=== PATIENT | female | born 1965 | race Caucasian/White ===

== ENCOUNTER 2019-09-09 09:00 | Outpatient (RCR) | payer OTHER, SELFPAY ==
[2019-08-26 08:19] VITALS: BP 181/103; PULSE 102; RESP 18; TEMP 37.2; BMI 32.7
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
--- NOTE | 2019-09-02 08:11 | ART_ITS ---
Reason For Study: RLE ulcer Left Segmental Pressures Left brachial= 163mmHg. Left dorsalis pedis artery = 239mmHg. Left digit = 169 mmHg. TELECOMMUNICATIONS ADMINISTRATOR is noncompressible. The left dorsalis pedis waveforms are triphasic. The left posterior tibial artery waveforms are triphasic. Right Segmental Pressures Right brachial= 166mmHg. Right posterior tibial artery = 199mmHg. Right dorsalis pedis artery = 186mmHg. Right digit = 177 mmHg. The right dorsalis pedis waveforms are triphasic. The right posterior tibial artery waveforms are triphasic. Indices The right ankle brachial index by the dorsalis pedis is 1.12. The right ankle brachial index by the posterior tibial artery is 1.2. The right digital-brachial index is 1.07. The left ankle brachial index by the dorsalis pedis is 1.44. The left digital-brachial index is 1.02. TELECOMMUNICATIONS ADMINISTRATOR is noncompressible. Interpretation Summary Triphasic Doppler waveforms are noted at ankle level bilaterally. Pulse-volume recordings appear satisfactory at all levels bilaterally. The resting right ankle-brachial index is normal. The resting left ankle-brachial index is supra-normal. Digital-brachial indices are normal bilaterally. Arterial flow appears normal at ankle and digital levels bilaterally. There is evidence of arterial calcification at ankle level on the left. Ordering Physician: Dayton Fontenot Performed By: WILMER MEREDITH T
[2019-09-02 10:00] VITALS: BP 181/99; PULSE 105; RESP 16; TEMP 36.9; BMI 32.7
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
[2019-09-02 18:57] LABS: M R Staph aureus DNA By PCR Negative (Negative); Probe Check PASS; Specimen Processing Control PASS; Staph aureus DNA By PCR NEGATIVE (Negative)
[2019-09-09 09:11] VITALS: BP 168/99; PULSE 99; RESP 18; TEMP 36.9; BMI 32.7
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
[2019-09-23 08:27] VITALS: BP 171/95; PULSE 104; RESP 20; TEMP 36.4; BMI 32.7
== END 2019-09-11 23:59 ==
LOC: WC 09:00
PROVIDERS: Referring Provider Surgery; Visit Provider Surgery
DX: S81.831A Puncture wound without foreign body, right lower leg, initial encounter (principal); V19.9XXA Pedal cyclist (driver) (passenger) injured in unspecified traffic accident, initial encounter; E78.5 Hyperlipidemia, unspecified; M79.89 Other specified soft tissue disorders; E11.51 Type 2 diabetes mellitus with diabetic peripheral angiopathy without gangrene; I70.202 Unspecified atherosclerosis of native arteries of extremities, left leg; I10 Essential (primary) hypertension; E66.9 Obesity, unspecified; Z68.32 Body mass index [BMI] 32.0-32.9, adult; Z79.899 Other long term (current) drug therapy; Z79.84 Long term (current) use of oral hypoglycemic drugs
CPT/HCPCS: 11042; 87070; 87075; 87077; 87186; 87205; 87640; 93923; 99203; 99212; G0463

== ENCOUNTER 2019-10-07 09:30 | Outpatient (RCR) | payer OTHER, SELFPAY ==
[2019-09-12 01:27] VITALS: BP 168/99; PULSE 99; RESP 18; TEMP 36.9
[2019-09-16 09:52] VITALS: BP 175/93; PULSE 111; RESP 20; TEMP 36.7; BMI 32.7
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
[2019-09-30 08:12] VITALS: BP 190/100; PULSE 101; RESP 18; TEMP 37; BMI 32.7
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
[2019-10-07 09:44] VITALS: BP 163/101; PULSE 117; RESP 18; TEMP 36.1; BMI 32.7
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
== END 2019-10-11 23:59 ==
LOC: WC 09:30
PROVIDERS: Referring Provider Surgery; Visit Provider Surgery
DX: S81.831A Puncture wound without foreign body, right lower leg, initial encounter (principal); V19.9XXA Pedal cyclist (driver) (passenger) injured in unspecified traffic accident, initial encounter; I10 Essential (primary) hypertension; E66.9 Obesity, unspecified; E11.9 Type 2 diabetes mellitus without complications; E78.5 Hyperlipidemia, unspecified; M79.89 Other specified soft tissue disorders; Y93.55 Activity, bike riding; Z79.899 Other long term (current) drug therapy; Z79.84 Long term (current) use of oral hypoglycemic drugs
CPT/HCPCS: 11042; 87070; 87075; 87077; 87186; 87205

== ENCOUNTER 2019-11-11 08:00 | Outpatient (RCR) | payer OTHER, SELFPAY ==
[2019-10-12 01:03] VITALS: BP 163/101; PULSE 117; RESP 18; TEMP 36.1
[2019-10-14 08:11] VITALS: BP 172/98; PULSE 103; RESP 18; TEMP 36.4; BMI 32.7
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
[2019-10-21 08:20] VITALS: BP 184/109; PULSE 97; RESP 18; TEMP 36.3; BMI 32.7
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
[2019-10-27 13:10] VITALS: BP 168/98; PULSE 105; RESP 18; TEMP 36.3; BMI 32.7
--- NOTE | 2019-10-27 13:16 | WC ---
pt steristrips/ veil and graft left in place . wound not measured today
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
[2019-11-03 13:14] VITALS: BP 154/79; PULSE 101; RESP 16; TEMP 36.8; BMI 32.7
--- NOTE | 2019-11-03 13:23 | WC ---
primatrix left intact per dr garrett instruction
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
[2019-11-11 08:07] VITALS: BP 157/87; PULSE 100; RESP 18; TEMP 36.5; BMI 32.7
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
== END 2019-11-11 23:59 ==
LOC: WC 08:00
PROVIDERS: Referring Provider Surgery; Visit Provider Surgery
DX: S81.831A Puncture wound without foreign body, right lower leg, initial encounter (principal); V19.9XXA Pedal cyclist (driver) (passenger) injured in unspecified traffic accident, initial encounter; M79.89 Other specified soft tissue disorders; E78.5 Hyperlipidemia, unspecified; I10 Essential (primary) hypertension; E11.9 Type 2 diabetes mellitus without complications; E66.9 Obesity, unspecified; Z79.84 Long term (current) use of oral hypoglycemic drugs; Z79.899 Other long term (current) drug therapy
CPT/HCPCS: 11042; 99212; 99213; G0463

== ENCOUNTER 2019-12-02 08:30 | Outpatient (RCR) | payer OTHER, SELFPAY ==
[2019-11-12 00:45] VITALS: BP 157/87; PULSE 100; RESP 18; TEMP 36.5
[2019-11-18 09:03] VITALS: BP 178/97; PULSE 100; RESP 18; TEMP 36.6; BMI 32.7
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
[2019-11-25 08:09] VITALS: BP 195/94; PULSE 95; RESP 16; TEMP 36.7; BMI 32.7
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
[2019-12-02 08:53] VITALS: BP 175/97; PULSE 105; RESP 18; TEMP 37.1; BMI 32.7
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
== END 2019-12-12 23:59 ==
LOC: WC 08:30
PROVIDERS: Referring Provider Surgery; Visit Provider Surgery
DX: S81.831A Puncture wound without foreign body, right lower leg, initial encounter (principal); V19.9XXA Pedal cyclist (driver) (passenger) injured in unspecified traffic accident, initial encounter; M79.89 Other specified soft tissue disorders; E78.5 Hyperlipidemia, unspecified; I10 Essential (primary) hypertension; E11.9 Type 2 diabetes mellitus without complications; E66.9 Obesity, unspecified; Z79.84 Long term (current) use of oral hypoglycemic drugs; Z79.899 Other long term (current) drug therapy; Z68.32 Body mass index [BMI] 32.0-32.9, adult; Z71.3 Dietary counseling and surveillance
CPT/HCPCS: 11042; 99213; G0463

== ENCOUNTER → 2021-09-08 10:07 | Outpatient (CLI) | payer SELFPAY, OTHER ==
--- NOTE | 2021-09-08 10:07 | MRI_ITS ---
History: pain, hcx prior burst fracture 2 yrs ago, surg 1 year go Technique: T1 and T2 MR imaging of the lumbar spine performed with and without contrast enhancement in axial and sagittal planes. 15ml Dotarem Findings: Chronic burst fracture deformity of the L2 vertebral body again noted with anterior and posterior displacement unchanged from prior radiograph. No bone marrow edema to suggest acute injury. Prominent disc space narrowing noted at L3-4 and L4-5. Modic type I endplate changes noted at the L4-5 level. Conus medullaris and cauda equina are normal. No paraspinal mass. Fat deposition within the son last and paraspinal muscles suggestive of disuse. No abnormal contrast enhancement L1-2: The posterior aspect of the L2 vertebral body projects posteriorly approximately 7 mm resulting in mild spinal stenosis. AP dimension of the thecal sac measures 10 mm. Narrowing of the left neural foramen secondary to the fracture deformity. L2-3: No disc protrusion. Normal caliber spinal canal and neural foramina. L3-4: Moderate broad-based disc protrusion results in mild compression of the thecal sac. Additional facet arthropathy moderate right and mild left neural foraminal narrowing. L4-5: No disc herniation or spinal stenosis. Prominent facet arthropathy results in significant narrowing of the neural foramina bilaterally. L5-S1: No central disc protrusion. Normal caliber spinal canal. Moderate narrowing of the left neural foramen related to lateral disc protrusion and facet arthropathy. IMPRESSION: Chronic burst fracture of the L2 vertebral body resulting in mild spinal stenosis.. L3-4 mild spinal stenosis related to disc protrusion. Multilevel neural foraminal narrowing as described. at 1212 Reported and signed by: Eron Briscoe MD Electronically Signed: Eron Briscoe MD at 12:11 EDT Tel , Service support , MRI/Spine Lumbar W/WO Contrast
[2021-09-08 11:25] LABS: CREATININE FINGERSTICK 0.7 mg/dL (0.55-1.02); EGFR FINGERSTICK > 60.0000 mL/min (>60)
== END ==
PROVIDERS: PCP Nurse Practitioner Family; Referring Provider Orthopaedic Surgery; Visit Provider Orthopaedic Surgery
DX: S32.001A Stable burst fracture of unspecified lumbar vertebra, initial encounter for closed fracture (principal); M48.061 Spinal stenosis, lumbar region without neurogenic claudication
CPT/HCPCS: 72158; A9575

== ENCOUNTER 2025-08-03 17:57 | Emergency (ER) | payer OTHER, SELFPAY ==
[2025-08-03 17:58] VITALS: BP 117/57; PULSE 96; RESP 16; TEMP 36.8; O2SAT 95
--- NOTE | 2025-08-03 18:56 | EDS_ITS ---
HPI History of Present Illness Chief Complaint: General Illness [facility] Medical History (Updated 08/03/25 @ 22:[address] Alan Murcia MD) Leg wound, right Home Medications ?Medication ?Instructions ?Recorded ?Last Taken ?Type amlodipine 10 mg tablet 10 mg PO DAILY 08/26/19 Unkn own History glipizide 5 mg tablet 10 mg PO DAILY 08/26/19 Unkn own History lisinopril 40 mg tablet 40 mg PO DAILY 08/22/21 Unkn own History aspirin 81 mg tablet,delayed 81 mg PO DAILY 08/03/25 U nknown History release (Adult Aspirin Regimen) atorvastatin 40 mg tablet 40 mg PO QHS 08/03/25 Unknow n History furosemide 20 mg tablet 20 mg PO DAILY PRN swelling 08/03/25 Unknown History hydrochlorothiazide 25 mg tablet 25 mg PO DAILY Unknown History insulin glargine 100 unit/mL (3 30 unit subcut QHS Unknown History mL) subcutaneous pen (Lantus Solostar U-100 Insulin) potassium chloride 20 mEq 20 meq PO DAILY 08/03/25 Unk nown History tablet,extended release(part/cryst) spironolactone 25 mg tablet 25 mg PO DAILY 08/03/25 Un known History Allergy/AdvReac Type Severity Reaction Status Date / Time No Known Allergies Allergy Verified 08/03/25 17:58 Family History (Updated 08/22/21 @ 09:19 by Gretchen Ontiveros) Mother Colon cancer Surgical History History of delivery Social History (Updated 08/22/21 @ 09:20 by Gretchen Ontiveros) household members: spouse housing: house Smoking Status: Never smoker alcohol intake: never what type of physical activity do you participate in: none do you feel safe at home: Yes EXAM Physical Exam Const Vital Signs: 08/03/25 17:58 08/03/25 20:17 08/03/25 22:00 Temperature 98.3 F Temperature Source Oral Pulse Rate 96 89 80 Respiratory Rate 16 17 16 Blood Pressure 117/57 L 133/67 H 125/68 H Blood Pressure Mean 77 89 87 Pulse Ox 95 95 98 Oxygen Delivery Method Room Air Room Air Room Air MDM MDM MDM Narrative Medical decision making narrative: HISTORY OF PRESENT ILLNESS: Chief complaint: Multiple complaints 60-year-old female history of degenerative disc disease, herniated disc, history of back surgery, hypertension, obesity, type 2 diabetes, hyperlipidemia, diverticulitis presents with multiple complaints. She states she presents emergency department today primarily secondary to abdominal pain and back pain. States the symptoms have been ongoing for the last 5 days. Notes press tender long goods NSAID use 2/2 back pain. Notes ibuprofen TID for the better part of the last year. NOtes recently she started taking aleve. She also notes pain in the right lower quadrant of her abdomen. Notes diarrhea. Last bowel was today. Notes difficulty urinating today. No she has not urinated since noon. She denies any falls or trauma. Patient denies any saddle anesthesia, bowel or bladder incontinence, lower extremity weakness, fever or IV drug use, no recent spinal manipulation or surgery, no recent urinary catheterization. Denies any vomiting. No fever currently or chills but noted fever last week. REVIEW OF SYSTEMS: Pertinent positives: Abdominal pain, back pain, difficulty urinating Pertinent negatives: [] PHYSICAL EXAM: Nursing triage notes reviewed, Vital signs reviewed Constitutional: please see mdm HENT: MMM Eyes: Pupils equal round and reactive to light, Extraocular muscles intact Neck: No stridor, no JVD, full neck ROM Lungs: Clear to auscultation, No wheezing or rales. No increased work of breathing, no conversational dyspnea, no accessory muscle use, no nasal flaring. No respiratory distress noted Heart: Regular rate and rhythm, No murmurs, No rubs and No gallops, 2+ distal pulses (radial, femoral, posterior tibial) in all extremities Abdomen: Soft, right lower quadrant TTP, slight distention but no rigidity or guarding, no obvious peritoneal signs, no palpable pulsatile abdominal masses, no auscultated abdominal bruit : No CVAT Extremities: No edema Neuro: No new focal neurological deficits, cranial nerves II through XII intact, 5/5 strength in all present extremities. Intact sensation to light touch in all present extremities, 2+ reflexes bilateral patella tendons. Skin: No rash or lesions noted MEDICAL DECISION MAKING: Chief Complaint: please see HPI External records reviewed: Reviewed prior imaging studies: Reviewed MRI of the lumbar spine in 2020 which showed burst fracture of L2 vertebral body, L3-4 mild spinal stenosis related to disc protrusion Factors affecting care: As per HPI Social determinants of health: Denies illicit drug use History obtained from others: Family Consults: General Surgery (Dr. Murcia), Radiology, General surgery and Emergency medicine at [facility] (Dr. Benavidez and Dr. Oneill) MDM Narrative: The patient was initially hemodynamically stable, afebrile and nontoxic- appearing. Exam without midline step-offs or deformities to the lumbar spine. No CVA tenderness. No new weakness to lower extremities. I considered the following differential diagnosis: AAA, small bowel obstruction, abdominal perforation, appendicitis, pancreatitis, hepatobiliary pathology (acute cholecystitis), mesenteric ischemia, pathology (ie nephrolithiasis, pyelonephritis). Epidural abscess, herniated disc, musculoskeletal back pain. I obtained a broad lab and imaging work to further determine if the patient was suffering from a life-threatening etiology. Initially treat the patient's pain with IV fluids, following his IV Zofran, 4 mg IV morphine, 15 mg IV Toradol ALL IMAGES (IF OBTAINED) HAVE BEEN PERSONALLY REVIEWED AND INTERPRETED BY MYSELF. CBC with leukocytosis suggestive of systemic inflammation, mild anemia, no thrombocytopenia BMP without significant electrolyte or maladies, noted mild metabolic acidosis with a bicarb of 20.3, no endorgan hypoperfusion, no significant acute kidney injury Lipase is wnl indicating no pancreatic inflammation. LFTs show no evidence of hepatobiliary pathology. Urinalysis shows no evidence of urinary inflammation suggestive of UTI CT scan lumbar spine shows no evidence of obvious bony abnormality CT scan of the abdomen pelvis read by radiology is concerning for abdominal perforation. Discussed with general surgery per radiology recommendations Aki Rudd. After discussing with the [facility] general surgeon an NG tube was ordered. He recommended ED to ED transfer. Discussed with the ED physician Dr. Burns who accepted the patient in transfer as well. The patient and/or family, caregivers express understanding. The patient and/or family, caregivers agrees with the plan. Shared decision making: I will have a discussion with the patient and or visitors regarding risk/benefits of further testing or admission. They will be made aware of of the risk/benefits inherent in this decision they will be given the opportunity to voice understanding. Total critical care time today provided was at least 60 minutes. This excludes separately billable procedures. Critical care time (if documented) is secondary to the patient having high probability of clinically significant/life threatening deterioration in the patient's condition which required my urgent intervention. Impression: 1. Acute abdominal pain 2. Acute on chronic back pain 3. Leukocytosis 4. Bowel perforation Dispo: Transfer to higher level of care, [facility] This note was generated with [employer] dictation software. It may contain incorrect words, spelling, and punctuation that were not noted in review of the chart prior to signing. Lab Data Labs: Laboratory Results - last 24 hr 08/03/25 08/03/25 08/03/25 18:55 20:15 20:30 WBC 15.0 H RBC 3.57 L Hgb 9.7 L Hct 30.9 L MCV 86.6 MCH 27.2 MCHC 31.4 L RDW Std Deviation 54.8 H RDW Coeff of Ector 17.2 H Plt Count 460 H MPV 9.5 Immature Gran % (Auto) 1.500 H Neut % (Auto) 89.9 H Lymph % (Auto) 4.0 L [place] % (Auto) 3.4 Eos % (Auto) 0.3 Baso % (Auto) 0.9 Absolute Neuts (auto) 13.5 H Absolute Lymphs (auto) 0.60 L Nucleated RBC % 0.1 Differential Comment SCANNED Platelet Estimate SLT INC Sodium 140 Potassium 3.7 Chloride 105 Carbon Dioxide 20.3 L Anion Gap 15 BUN 47 H Creatinine 1.43 H Estim Creat Clear Calc 39.60 L Est GFR (MDRD) Non-Af 41 L BUN/Creatinine Ratio 32.9 H Glucose 127 H Calcium 8.2 Total Bilirubin 0.23 AST 25 ALT 31 Alkaline Phosphatase 182 H Total Protein 5.9 Albumin 2.5 L Globulin 3.4 Albumin/Globulin Ratio 0.7 L Lipase 20 Urine Color Yellow Urine Clarity Cloudy Urine pH 5.0 Ur Specific [place]elope 1.010 Urine Protein 30 H Urine Glucose (UA) Normal Urine Ketones Negative Urine Occult Blood 10 H Urine Nitrite Negative Urine Bilirubin Negative Urine Urobilinogen Normal Ur Leukocyte Esterase 25 H Urine RBC 0-5 SEEN Urine WBC 5-10 SEEN Ur Squamous Epith Cells 10-25 SEEN Ur Transition Epith Cell 10-25 SEEN Urine Bacteria 0 SEEN Hyaline Casts 10-25 SEEN Fine Granular Casts 0-5 SEEN Coarse Granular Casts 0-5 SEEN Urine Mucus 0 SEEN POC Glucose 121 H Radiography Diagnostic Testing: Clinical Impression(s) from Imaging Studies Abdomen/Pelvis CT 08/03/25 19:09 IMPRESSION: Abnormal air which appears to be confined to the retroperitoneum on the left and could be arising from the small bowel or duodenum. There are loculated central feculent appearing collection suggesting abscesses but without enhancing boudreaux at this time. Recommend surgical consultation Reading Location: [facility] Lumbar Spine CT 08/03/25 19:09 IMPRESSION: Extensive prior fusion. No fracture. No paravertebral abscess. See separate CT report. Reading Location: [facility] Discharge Plan Triage Chief Complaint: General Illness Other Complaint: Back ED Provider: Jayden Martinez Dx/Rx/DC Orders Prescriptions: No Action lisinopril 40 mg tablet 40 mg PO DAILY Patient Comments: TAKE ONE TABLET BY MOUTH DAILY amlodipine 10 MG tablet 10 mg PO DAILY glipizide 5 MG tablet 10 mg PO DAILY atorvastatin 40 mg tablet 40 mg PO QHS hydrochlorothiazide 25 mg tablet 25 mg PO DAILY furosemide 20 mg tablet 20 mg PO DAILY PRN (Reason: swelling) insulin glargine [Lantus Solostar U-100 Insulin] 100 unit/mL (3 mL) insulin pen 30 unit subcut QHS spironolactone 25 mg tablet 25 mg PO DAILY potassium chloride 20 mEq tablet,ER particles/crystals 20 meq PO DAILY aspirin [Adult Aspirin Regimen] 81 mg tablet,delayed release (DR/EC) 81 mg PO DAILY Primary Care Provider: Danay Fontenot Referrals: Cate Carl REFRIGERATOR REPAIRMAN, REFRIGERATOR REPAIRMAN-C [Non-Staff, Family Practice] Print Language: [place]
[2025-08-03 19:03] LABS: Hematocrit 30.9 % (37-47); Hemoglobin 9.7 g/dL (12.0-15.0); Immature Granulocytes Count 0.220 X10^3/uL (0.0-0.0); Mean Corp Hgb Conc 31.4 g/dL (32-36); Mean Corpuscular Volume 86.6 fL (81-99); Mean Platelet Vol. 9.5 fl (6.2-12.0); NRBC Flagged by Analyzer 0.1 % (0-5); POSITIVE DIFFERENTIAL YES; POSITIVE MORPHOLOGY YES; Platelet Count 460 K/mm3 (150-450); RBC Distribution Width CV 17.2 % (11.6-14.6); RBC Distribution Width SD 54.8 fl (35.1-43.9); Red Blood Count 3.57 M/mm3 (4.2-5.4); White Blood Count 15.0 K/mm3 (4.4-11.0)
[2025-08-03 19:07] LABS: Differential Indicated SCAN CRITERIA MET
--- NOTE | 2025-08-03 19:09 | CT_ITS ---
PROCEDURE: SPINE LUMBAR WITHOUT CONTRAST 08/03/2025 REASON FOR EXAM: BACK PAIN TECHNIQUE: Procedure Code: CTSPL Modality: CT Procedure: SPINE LUMBAR WITHOUT CONTRAST Coronal and Sagittal reconstruction series were provided. One or more dose reduction techniques were used (e.g., Automated exposure control, adjustment of the mA and/or kV according to patient size, use of iterative reconstruction technique RADIATION DOSE SUMMARY: CTDlvol: 62 mGy DLP: 2476 mGycm FINDINGS: Extensive lumbar fusion with pedicle screws and Beltrán rods. Chronic compressive deformity of L2 without acute compressive deformity. No fracture of the pedicle screws. No paravertebral soft tissue mass. Normal abdominal aorta. See separate abdominal CT for details regarding abnormal extraperitoneal air. Chronic deformity of L2. Chronic deformity of T11. CT/Spine Lumbar without Contrast IMPRESSION: Extensive prior fusion. No fracture. No paravertebral abscess. See separate CT report. Reading [facility]
--- NOTE | 2025-08-03 19:09 | CT_ITS ---
PROCEDURE: ABDOMEN/PELVIS W IV CONT ONLY 08/03/2025 REASON FOR EXAM: RIGHT LOWER QUADRANT ABDOMINAL PAIN TECHNIQUE: Procedure Code: [id number] Modality: CT Procedure: ABDOMEN/PELVIS W IV CONT ONLY Coronal and Sagittal reconstruction series were provided. CONTRAST: Isovue 370 VOLUME: 100 mL One or more dose reduction techniques were used (e.g., Automated exposure control, adjustment of the mA and/or kV according to patient size, use of iterative reconstruction technique. RADIATION DOSE SUMMARY: CTDlvol: 62 mGy DLP: 2476 mGycm FINDINGS: Lung bases demonstrate a non calcified nodule in the right lower lobe which measures 12 mm. Smaller 3 mm nodule right lower lobe peripherally. There is abnormal air within the abdomen. There is prior lumbar surgery There is no bowel obstruction. There is abnormal air, within the retroperitoneum on the left which tracks into the pelvis into the presacral space. There is abscess formation which is closely related to a loop of small bowel in the midabdomen. There may be a separate loculated collection more centrally. Air tracks along the fascial spaces of the retroperitoneum on the left. There are colonic diverticula although the abscesses do not appear geographically related to the sigmoid colon or left colon. No hydronephrosis. Normal pancreas. Normal spleen and liver. CT/Abdomen/Pelvis W IV Cont ONLY IMPRESSION: Abnormal air which appears to be confined to the retroperitoneum on the left an d could be arising from the small bowel or duodenum. There are loculated central feculent appearing collection suggesting abscesses but without enhancing boudreaux at this time. Recommend surgical consultation [facility]
[2025-08-03 19:14] VITALS: BMI 31.6
[2025-08-03 19:27] LABS: AST(SGOT) 25 U/L (<=31); Alanine Aminotransfer ALT/SGPT 31 U/L (<=34); Albumin, Serum 2.5 g/dL (3.4-4.8); Alkaline Phosphatase 182 U/L (35-104); Anion Gap 15 (5-15); BUN 47 mg/dL (4-19); BUN/Creat Ratio 32.9 RATIO (10-20); Calcium,Total 8.2 mg/dL (7.6-11.0); Carbon Dioxide 20.3 mmol/L (21.0-32.0); Chloride 105 mmol/L (98-108); Estimated Creatinine Clearance 39.60 ml/min (50-250); Globulin 3.4 g/dL (2.2-4.2); Glucose 127 mg/dL (70-99); Lipase 20 U/L (13-75); Potassium 3.7 mmol/L (3.3-5.1)
[2025-08-03] MEDS: 0.9% Normal Saline (500mL Bag) 500 ML 999 ML IV (19:30)
[2025-08-03 20:17] VITALS: BP 133/67; PULSE 89; RESP 17; O2SAT 95
[2025-08-03 20:52] LABS: Mucous, Urine 0 SEEN /hpf (<or=2+)
[2025-08-03 21:00] LABS: Differential Comment SCANNED
[2025-08-03 21:07] LABS: Color, Urine Yellow (Yellow); Glucose, Dipstick Normal (Normal); Ketone-Dipstick Negative (Negative); Leukocyte Esterase-Dipstick 25 /ul (Negative); Nitrite-Dipstick Negative (Negative); Occult Blood-Urine 10 /ul (Negative); Protein-Dipstick 30 mg/dl (Negative); Specific Gravity, Urine 1.010 (1.002-1.030); Urine Bilirubin Dipstick Negative (Negative)
[2025-08-03] MEDS: Piperacil/Tazobactam 4.5 GM in 0.9% Normal Saline (100mL MB+) 100 ML IV (21:15)
[2025-08-03 21:19] LABS: Red Blood Cells-Urine 0-5 SEEN /hpf (0-5); Squamous Epithelial Cells - UA 10-25 SEEN /hpf (5-10); Transitional Epithelial - Ur 10-25 SEEN /hpf (0-5)
[2025-08-03 21:22] LABS: Fine Granular Cast- Urine 0-5 SEEN /lpf (0-5)
[2025-08-03 22:00] VITALS: BP 125/68; PULSE 80; RESP 16; O2SAT 98
--- NOTE | 2025-08-03 22:22 | EX.PCM.CON.S ---
Assessment & Plan Assessment/Plan (1) Bowel perforation: PLAN: The patient has a very impressive CT scan showing air throughout the left retroperitoneum from the spleen all the way down to the rectum. There is also a possible abscess in the retroperitoneum that is not walled off. There is possible fecalization. After reviewing the CT scan and seeing the patient she is tender mostly in the left flank. Her abdomen is not peritoneal. I believe the patient may have a perforated duodenal ulcer given the fact that the only 2 pieces of bowel to communicate with the retroperitoneum are the sigmoid and the duodenum and the radiologist notes specifically that there is no fat stranding around the sigmoid colon. I am concerned the patient may need a diverting procedure and I would like her transferred to a tertiary center for this. Patient should be started on antibiotics. We will try to reach out to tertiary center for transfer. I discussed this with the family and the patient. Alan Murcia MD Pager: [facility] [address] [place] [address], [address] [place] [address] Office: HPI Consult Data Date of Consult: 08/03/25 HPI Narrative HPI Narrative: MERARY ONTIVEROS, is a 60 F who presents with abdominal pain. The patient is also having back pain. The patient reports that on Sunday of last week which she is now 5 days ago she was febrile to 103 degrees. She also reports that she has a long-term NSAID use for over a year due to back pain from a back surgery. She is not on a PPI. She states she has been in pain for the last 4 to 5 days. She has not had any further fevers. She denies nausea or vomiting. She reports the pain is diffuse. She also has pain in her back. [facility] Medical History (Updated 08/03/25 @ 22:[address] Alan Murcia MD) Leg wound, right Home Medications ?Medication ?Instructions ?Recorded ?Last Taken ?Type amlodipine 10 mg tablet 10 mg PO DAILY 08/26/19 Unknown History glipizide 5 mg tablet 10 mg PO DAILY 08/26/19 Unknown History lisinopril 40 mg tablet 40 mg PO DAILY 08/22/21 Unknown History aspirin 81 mg tablet,delayed 81 mg PO DAILY 08/03/25 Unknown History release (Adult Aspirin Regimen) atorvastatin 40 mg tablet 40 mg PO QHS 08/03/25 Unknown History furosemide 20 mg tablet 20 mg PO DAILY PRN swelling 08/03/25 Unknown History hydrochlorothiazide 25 mg tablet 25 mg PO DAILY 08/03/25 Unknown History insulin glargine 100 unit/mL (3 30 unit subcut QHS 08/03/25 Unknown History mL) subcutaneous pen (Lantus Solostar U-100 Insulin) potassium chloride 20 mEq 20 meq PO DAILY 08/03/25 Unknown History tablet,extended release(part/cryst) spironolactone 25 mg tablet 25 mg PO DAILY 08/03/25 Unknown History Allergy/AdvReac Type Severity Reaction Status Date / Time No Known Allergies Allergy Verified 08/03/25 17:58 Family History (Updated 08/22/21 @ 09:19 by Gretchen Ontiveros) Mother Colon cancer Surgical History History of delivery Social History (Updated 08/22/21 @ 09:20 by Gretchen Ontiveros) household members: spouse housing: house Smoking Status: Never smoker alcohol intake: never what type of physical activity do you participate in: none do you feel safe at home: Yes ROS Constitutional Constitutional: Reports fever(s); Denies anorexia, chills or fatigue Eyes Eyes: Denies blurry vision ENT HEENT: Denies abnormal hearing Cardiovascular Cardiovascular: Denies chest pain Respiratory/Chest Respiratory/Chest: Denies cough or dyspnea Gastrointestinal Gastrointestinal: Reports abdominal pain; Denies nausea or vomiting Genitourinary Genitourinary: Denies change in urinary stream Musculoskeletal Musculoskeletal: Denies abnormal gait Integumentary Integumentary: Denies jaundice Neurologic Neurologic: Denies abnormal gait or dizziness Psychiatric Psychiatric: Denies anxiety Endocrine Endocrinology: Denies flushing Hematologic/Lymphatic Hematologic/Lymphatic: Denies easy bleeding Physical Exam Const alert and oriented x3 HEENT normocephalic Eyes PERRL Resp normal respiratory effort Cardio Rate: regular rate Rhythm: regular rhythm GI soft to palpation Palpation: tender Extremity normal to inspection Lab / Micro Data 08/03/25 18:55 08/03/25 18:55 Labs: Laboratory Results - last 24 hr 08/03/25 18:55: WBC 15.0 H, RBC 3.57 L, Hgb 9.7 L, Hct 30.9 L, MCV 86.6, MCH 27.2, MCHC 31.4 L, RDW Std Deviation 54.8 H, RDW Coeff of Ector 17.2 H, Plt Count 460 H, MPV 9.5, Immature Gran % (Auto) 1.500 H, Neut % (Auto) 89.9 H, Lymph % (Auto) 4.0 L, [place] % (Auto) 3.4, Eos % (Auto) 0.3, Baso % (Auto) 0.9, Absolute Neuts (auto) 13.5 H, Absolute Lymphs (auto) 0.60 L, Nucleated RBC % 0.1, Differential Comment SCANNED, Platelet Estimate SLT INC, Sodium 140, Potassium 3.7, Chloride 105, Carbon Dioxide 20.3 L, Anion Gap 15, BUN 47 H, Creatinine 1.43 H, Estim Creat Clear Calc 39.60 L, Est GFR (MDRD) Non-Af 41 L, BUN/Creatinine Ratio 32.9 H, Glucose 127 H, Calcium 8.2, Total Bilirubin 0.23, AST 25, ALT 31, Alkaline Phosphatase 182 H, Total Protein 5.9, Albumin 2.5 L, Globulin 3.4, Albumin/Globulin Ratio 0.7 L, Lipase 20 08/03/25 20:15: POC Glucose 121 H 08/03/25 20:30: Urine Color Yellow, Urine Clarity Cloudy, Urine pH 5.0, Ur Specific [place] 1.010, Urine Protein 30 H, Urine Glucose (UA) Normal, Urine Ketones Negative, Urine Occult Blood 10 H, Urine Nitrite Negative, Urine Bilirubin Negative, Urine Urobilinogen Normal, Ur Leukocyte Esterase 25 H, Urine RBC 0-5 SEEN, Urine WBC 5-10 SEEN, Ur Squamous Epith Cells 10-25 SEEN, Ur Transition Epith Cell 10-25 SEEN, Urine Bacteria 0 SEEN, Hyaline Casts 10-25 SEEN, Fine Granular Casts 0-5 SEEN, Coarse Granular Casts 0-5 SEEN, Urine Mucus 0 SEEN Imaging Radiology Impression Abdomen/Pelvis CT 08/03/25 19:09 IMPRESSION: Abnormal air which appears to be confined to the retroperitoneum on the left and could be arising from the small bowel or duodenum. There are loculated central feculent appearing collection suggesting abscesses but without enhancing boudreaux at this time. Recommend surgical consultation Reading Location: [facility] Lumbar Spine CT 08/03/25 19:09 IMPRESSION: Extensive prior fusion. No fracture. No paravertebral abscess. See separate CT report. Reading Location: [facility]
[2025-08-03] MEDS: Oxymetazoline 0.05% 1 SPRAY SPRAY.BTL NASAL (23:20)
--- NOTE | 2025-08-03 23:46 | RAD_ITS ---
PROCEDURE: ABDOMEN SINGLE VIEW (PORTABLE) 08/03/2025 REASON FOR EXAM: NG INSERTION TECHNIQUE: Procedure Code: RADABD_P Modality: DX Procedure: ABDOMEN SINGLE VIEW (PORTABLE) COMPARISON: Abdominal CT earlier same day 08/03/2025. FINDINGS: Enteric tube courses midline extending below the diaphragm, terminating in the upper midabdomen in the expected location of the stomach. Visualized gas pattern is nonobstructive. Free air under the left hemidiaphragm. Multilevel degenerative changes of the spine, with lower thoracolumbar posterior metallic fusion. RAD/Abdomen Single View (Portable) IMPRESSION: Enteric tube appears to terminate appropriately within the stomach. Redemonstrated intraperitoneal free air under the left hemidiaphragm. Reading Location: [facility]
[2025-08-04] VITALS: BP 145/84; PULSE 79; RESP 18
[2025-08-04 00:32] VITALS: BP 145/85; PULSE 79; RESP 18; TEMP 36.7; O2SAT 94
== END 2025-08-04 01:04 | disposition short-term general hospital (02) ==
LOC: ED 19:46
PROVIDERS: Emergency Provider Emergency Medicine; PCP Student in an Organized Health Care Education/Training Program; Visit Provider Emergency Medicine
DX: K63.1 Perforation of intestine (nontraumatic) (principal); Z79.4 Long term (current) use of insulin; E11.9 Type 2 diabetes mellitus without complications; R10.9 Unspecified abdominal pain; Z79.84 Long term (current) use of oral hypoglycemic drugs; Z79.899 Other long term (current) drug therapy; E78.5 Hyperlipidemia, unspecified; Z79.82 Long term (current) use of aspirin; M54.9 Dorsalgia, unspecified; G89.29 Other chronic pain; Z79.1 Long term (current) use of non-steroidal anti-inflammatories (NSAID)
CPT/HCPCS: 72131; 74018; 74177; 80053; 81001; 82962; 83690; 85025; 99284; Q9967; A4216; J2405

== ENCOUNTER 2025-08-31 17:14 | Inpatient (IN) | payer SELFPAY, OTHER ==
[2025-08-31 17:38] VITALS: BP 158/78; PULSE 107; RESP 18; TEMP 36.4; O2SAT 95
--- NOTE | 2025-08-31 19:50 | HP.PCM_ITS ---
HPI - General General Date of Admission: 08/31/25 Date of Service: 08/31/25 Chief Complaint: Here for rehabilitation. HPI Narrative MERARY ONTIVEROS, is a 60 Female who presented to [facility] with abdominal pain and back pain on 08/04/2025. CT AP was done showing that patient had retroperitoneal free air with concern for possible perforated viscus. Acute Care Surgery was consulted recommended a repeat CT AP, NGT placement, and broad spectrum ant ibiotics. Repeat CT AP was done showing significant interval change in free air compared to prior scan. Pockets of air were seen along duodenum and jejunum raising concern for duodenal and/or jejunal perforation. Patient was admitted to the TICU on 08/04/2025. Patient went to the OR with Acute Care Surgery on 08/05/2025 showing no perforation in the bowel but retroperitoneal abscess was present. Drain was placed in collection and sample was sent off for culture. Posterior duodenum was not explored due to significant adhesions. Cultures from drain positive for mixed gram positive and gram negative anaerobes. On 08/07/2025 GI was consulted for melena/hematemesis with anemia. Hemoglobin dropped from 8.4 to 6.5. EGD performed and found to have a singular ulcer in the greater curve of stomach with oozing hemorrhage and multiple large ulcers in the body of the stomach and antrum. Clips placed and hemostasis achieved. An upper GI with SBFT though did not identify and bowel leak or perforation. A repeat CT on 08/15/2025 showed a left sanya-abdominal fluid collection. 08/16/2025 IR pigtail drain placed in left sanya abdomen for which 130mL of purulent fluid was aspirated. Cultures positive for E. Coli and mixed anaerobes. Zosyn discontinued and transitioned to Ceftriaxone on 08/19/2025. On 08/19/2025: Right tunneled double lumen PICC placement for TPN and antibiotics. ID consulted to assist with antibiotic management in setting of intra-abdominal fluid collection which was resistant to Zosyn. Ceftriaxone discontinued at this time and patient started on Levaquin 750mg po every 24 hours for 2 weeks and Flagyl 500mg po every 8 hours for 2 weeks. Patient with increase in leukocytosis and repeat CT completed on 08/22/2025 with no acute findings and decreasing size of fluid collections. Patient started on diet for which she tolerated well however very poor appetite. She remained on TPN and discussed multiple times the need for dobbhoff for enteral feeds. This would assist in providing adequate nutrition to heal while appetite is poor. Patient and family refused at that time and continued to increase PO intake and the use of supplements. On 08/27/2025 TPN was able to be discontinued. On day of discharge, patient remained hemodynamically stable, tolerating a diet and having bowel function. She is being discharged with two drains in place and will follow up closely in Acute Care Surgery clinic. Patient will need closed follow-up with her PCP as well. She will continue on PO antibiotics for the duration of their course. [facility] Medical History (Updated 08/31/25 @ 20:[address] Ben Eller MD) Hemiparesis affecting left side as late effect of cerebrovascular accident Hypokalemia Essential (primary) hypertension Type 2 diabetes mellitus with hyperglycemia Retroperitoneal abscess Acute blood loss anemia Debility Leg wound, right Home Medications ?Medication ?Instructions ?Recorded ?Last Taken ?Type amlodipine 10 mg tablet 10 mg PO DAILY blood pressur e 08/26/19 Unknown History lisinopril 40 mg tablet 40 mg PO DAILY blood pressur e 08/22/21 Unknown History aspirin 81 mg tablet,delayed 81 mg PO DAILY heart heal th 08/03/25 Unknown History release (Adult Aspirin Regimen) atorvastatin 40 mg tablet 40 mg PO QHS cholesterol Unknown History furosemide 20 mg tablet 20 mg PO DAILY PRN swelling 08/03/25 Unknown History hydrochlorothiazide 25 mg tablet 25 mg PO DAILY blood 08/03/25 Unknown History pressure/water pill insulin glargine 100 unit/mL (3 30 unit subcut QHS brittanie betes 08/03/25 Unknown History mL) subcutaneous pen (Lantus Solostar U-100 Insulin) potassium chloride 20 mEq 20 meq PO DAILY supplement 0 08/03/25 Unknown History tablet,extended release(part/cryst) spironolactone 25 mg tablet 25 mg PO DAILY water pill 08/03/25 Unknown History acetaminophen 325 mg tablet 650 mg PO Q6H inflammation /pain 08/31/25 Unknown History glipizide 10 mg tablet, extended 20 mg PO DAILY diabet es 08/31/25 Unknown History release 24 hr levofloxacin 750 mg tablet 750 mg PO DAILY infection 1 Unknown History metronidazole 500 mg tablet 500 mg PO Q8H diverticulit is 08/31/25 Unknown History ondansetron 4 mg disintegrating 4 mg PO Q8H PRN nausea and vomiting 08/31/25 Unknown History tablet oxycodone 5 mg tablet 5 mg PO Q4H PRN severe pain (scale 08/31/25 Unknown History score 7-10) Allergy/AdvReac Type Severity Reaction Status Date / Time No Known Allergies Allergy Verified 08/03/25 17:58 Family History (Updated 08/22/21 @ 09:19 by Gretchen Ontiveros) Mother Colon cancer Surgical History History of delivery Social History (Updated 08/22/21 @ 09:20 by Gretchen Ontiveros) household members: spouse housing: house Smoking Status: Never smoker alcohol intake: never what type of physical activity do you participate in: none do you feel safe at home: Yes ROS Constitutional Constitutional: Denies chills, fever(s) or weight gain ENT HEENT: Denies headache(s), nasal congestion or nasal discharge Cardiovascular Cardiovascular: Denies chest pain or palpitations Respiratory/Chest Respiratory/Chest: Denies cough, excessive phlegm production or shortness of br eath with exertion Gastrointestinal Gastrointestinal: Reports other Details: Midline incision clean, dry, intact, but inferior incision open with gauze packing. 2 drains left hemiabdomen draining purulent material. ; Denies abdominal pain, nausea or vomiting Genitourinary Genitourinary: Denies dysuria Musculoskeletal Musculoskeletal: Denies joint pain or joint swelling Integumentary Integumentary: Denies rash or wounds Neurologic Neurologic: Denies focal weakness, numbness or tingling Psychiatric Psychiatric: Denies anxiety, auditory hallucinations, depression, homicidal ideation or suicidal ideation Vital Signs Vital Signs Vital Signs: 08/31/25 17:38 08/31/25 17:38 Temperature 97.6 F L Temperature Source Temporal Pulse Rate 107 H Pulse Rhythm Regular Pulse Strength Normal (2+) Respiratory Rate 18 Respiratory Effort Normal Non-Labored Respiratory Depth Normal Respiratory Pattern Normal Blood Pressure 158/78 H Blood Pressure Mean 104 Blood Pressure Source Monitor Blood Pressure Position Semi-Fowlers Blood Pressure Location Right Arm Pulse Ox 95 Oxygen Delivery Method Room Air Room Air Assessment & Plan Assessment/Plan (1) Debility: (2) Bowel perforation: (3) Gastric ulcer: (4) Acute blood loss anemia: (5) Retroperitoneal abscess: (6) Type 2 diabetes mellitus with hyperglycemia: (7) Essential (primary) hypertension: (8) Hyperlipidemia: (9) Hypokalemia: (10) Hemiparesis affecting left side as late effect of cerebrovascular accident: PLAN: Plan 60 year old female with below past medical history hospitalized with abdominal pain, free air in abdomen, multiple gastric ulcers, retroperitoneal abscess status post open laparotomy, and IR placed drain, admitted to TCU with debility, here for rehabilitation, strengthening, prior to discharge home with . * Debility - PT/OT. * Pain - Tylenol 1000mg q8, Oxycodone 5mg q4 prn. * Bowel - Miralax 17gm daily, senna/colace 2 tablets bid. * Adult immunization - Administer pneumonia vaccine, covid vaccine, flu vaccine as appropriate. * DVT prophylaxis - Lovenox 40mg sc daily. * Hypertension - Lisinopril 40mg daily, HCTZ 25mg daily, Amlodipine 10mg daily. * Stroke - Aspirin 81mg daily. * Hyperlipidemia - Atorvastatin 40mg qhs. * Chronic HFpEF - Lisinopril 40mg daily, Aldactone 25mg daily, Furosemide 20mg daily prn. * Diabetes Mellitus II - Glipizide 20mg daily, Glargine 20 units daily, Glucagon 1mg im x 1 prn. * Retroperitoneal abscess - Levaquin 750mg daily thru 09/15/2025, Flagyl 500mg q8 thru 09/14/2025. * Tinea Corporis - Nystatin powder topical bid. * Nausea - Zofran odt 4mg q8 prn. * Hypokalemia KCL 20meq daily.
[2025-08-31] MEDS: Insulin Glargine-YFGN 100 UNIT/ML Pen 30 UNIT SC (22:28)
[2025-08-31] MEDS: Senna/Docusate Sodium 1 Tablet 2 TABLET PO (22:29)
[2025-09-01 06:52] LABS: Hematocrit 27.2 % (37-47); Hemoglobin 8.3 g/dL (12.0-15.0); Immature Granulocytes Count 0.510 X10^3/uL (0.0-0.0); Mean Corp Hgb Conc 30.5 g/dL (32-36); Mean Corpuscular Volume 89.2 fL (81-99); Mean Platelet Vol. 8.7 fl (6.2-12.0); NRBC Flagged by Analyzer 1.1 % (0-5); Platelet Count 496 K/mm3 (150-450); RBC Distribution Width CV 18.4 % (11.6-14.6); RBC Distribution Width SD 56.9 fl (35.1-43.9); Red Blood Count 3.05 M/mm3 (4.2-5.4); White Blood Count 10.8 K/mm3 (4.4-11.0)
[2025-09-01 07:19] LABS: Anion Gap 11 (5-15); BUN 22 mg/dL (4-19); BUN/Creat Ratio 27.3 RATIO (10-20); Calcium,Total 8.3 mg/dL (7.6-11.0); Carbon Dioxide 22.0 mmol/L (21.0-32.0); Chloride 111 mmol/L (98-108); Glucose 87 mg/dL (70-99); Potassium 3.8 mmol/L (3.3-5.1)
[2025-09-01] MEDS: Polyethylene Glycol 3350 17 GM PACKET PO (09:04)
[2025-09-01] MEDS: Senna/Docusate Sodium 1 Tablet 2 TABLET PO (09:05)
[2025-09-01] MEDS: Potassium Chloride Oral Tablet 20 MEQ PO (09:05)
[2025-09-01] MEDS: Aspirin E.C. 81 MG Tablet PO (09:05)
[2025-09-01 09:11] VITALS: BP 145/79; PULSE 100; RESP 18; TEMP 37.2; O2SAT 96
--- NOTE | 2025-09-01 09:44 | PCM.PN.DRR ---
Documented by User: Chantell Garcia 09/01/25 10:39 TCU RX Drug Regimen Review Subjective/Objective Subjective/Objective Subjective: TCU Admission. 60 YOF admitted to outside hospital with abdominal and back pain. Hospitalized with abdominal pain, free air in abdomen, multiple gastric ulcers, retroperitoneal abscess status post open laparotomy, and IR placed drain. Admitted to TCU with debility for strengthening and rehabilitation. Objective: Allergies No Known Allergies Allergy (Verified 08/03/25 17:58) Current Medications Generic Name Dose Route Start Last Admin Trade Name Freq PRN Reason Stop Dose Admin Acetaminophen 1,000 mg 09/01/25 06:00 09/01/25 06:31 Acetaminophen 500 Mg Tablet PO 1,000 mg Q8 AMINATA Administration Amlodipine Besylate 10 mg 09/01/25 10:00 09/01/25 09:05 Amlodipine 10 Mg Tablet PO 10 mg DAILY AMINATA Administration Protocol Aspirin 81 mg 09/01/25 08:00 09/01/25 09:05 Aspirin E.C. 81 Mg Tablet PO 81 mg BREAKFAST AMINATA Administration Atorvastatin Calcium 40 mg 08/31/25 22:00 08/31/25 22:29 Atorvastatin Calcium 40 Mg Tablet PO 40 mg QHS AMINATA Administration Enoxaparin Sodium 40 mg 09/01/25 09:00 Enoxaparin 40 Mg/0.4 Ml Syringe SC DAILY@0600 AMINATA Furosemide 20 mg 08/31/25 17:52 Furosemide 20 Mg Tablet PO DAILY PRN Swelling Protocol Glipizide 20 mg 09/01/25 07:30 09/01/25 09:05 Glipizide 10 Mg Tablet PO 20 mg DAILY@0730 AMINATA Administration Glucagon 1 mg 08/31/25 17:52 Glucagon 1 Mg/Ml Syringe IM X1 PRN Hypoglycemia Protocol Hydrochlorothiazide 25 mg 09/01/25 10:00 09/01/25 09:04 Hydrochlorothiazide 25 Mg Tablet PO 25 mg DAILY AMINATA Administration Protocol Dextrose 250 mls @ 0 mls/hr 08/31/25 17:52 Dextrose 10%-Water IV .Q0M PRN HYPOGLYCEMIA Protocol As Directed Insulin Glargine 30 unit 08/31/25 22:00 08/31/25 22:28 Insulin Glargine-Yfgn 100 Unit/Ml Pen SC 30 unit QHS AMINATA Administration Levofloxacin 750 mg 09/01/25 10:00 09/01/25 09:05 Levofloxacin 750 Mg Tablet PO 1104/25 10:01 750 mg DAILY AMINATA Administration Lisinopril 40 mg 09/01/25 10:00 09/01/25 09:04 Lisinopril 40 Mg Tablet PO 40 mg DAILY AMINATA Administration Protocol Metronidazole 500 mg 08/31/25 18:00 09/01/25 09:04 Metronidazole 500 Mg Tablet PO 09/14/25 18:01 500 mg Q8H AMINATA Administration Nystatin 1 applic 08/31/25 22:00 09/01/25 09:06 Nystatin Powder 15gm Bottle TOPICAL 1 applic BID AMINATA Administration Protocol Ondansetron HCl 4 mg 08/31/25 17:52 Ondansetron Odt 4 Mg Tablet PO Q8H PRN nausea and vomiting Oxycodone HCl 5 mg 08/31/25 17:52 Oxycodone 5 Mg Tablet PO Q4H PRN severe pain (scale score 7-10) Pantoprazole Sodium 40 mg 09/01/25 10:00 09/01/25 09:06 Pantoprazole Sodium 40 Mg Tablet PO 40 mg BID AMINATA Administration Polyethylene Glycol 17 gm 09/01/25 10:00 09/01/25 09:04 Polyethylene Glycol 3350 17 Gm Packet PO 17 gm DAILY AMINATA Administration Potassium Chloride 20 meq 09/01/25 10:00 09/01/25 09:05 Potassium Chloride Oral Tablet 20 Meq PO 20 meq DAILY AMINATA Administration Senna/Docusate Sodium 2 tablet 08/31/25 22:00 09/01/25 09:05 Senna/Docusate Sodium 1 Tablet PO 2 tablet BID AMINATA Administration Sodium Chloride 10 - 40 ml 08/31/25 17:40 0.9% Saline Lock 10 Ml Syringe IV UD PRN SALINE FLUSH Spironolactone 25 mg 09/01/25 10:00 09/01/25 09:05 Spironolactone 25 Mg Tablet PO 25 mg DAILY AMINATA Administration Protocol Sucralfate 1 gm 09/01/25 11:00 Sucralfate 1 Gm Tablet PO 10/01/25 11:01 1HR_ACHS AMINATA Tuberculin PPD 0.1 ml 09/01/25 10:00 Tuberculin,Purif.Prot.Deriv. 50 Tu/Ml Vial ID 09/01/25 10:01 X1 ONE Tuberculin PPD 0.1 ml 09/08/25 10:00 Tuberculin,Purif.Prot.Deriv. 50 Tu/Ml Vial ID 09/08/25 10:01 X1 ONE Problem List Hemiparesis affecting left side as late effect of cerebrovascular accident (Acute) Hypokalemia (Acute) Essential (primary) hypertension (Acute) Type 2 diabetes mellitus with hyperglycemia (Acute) Retroperitoneal abscess (Acute) Acute blood loss anemia (Acute) Gastric ulcer (Acute) Debility (Acute) Bowel perforation (Acute) Hyperlipidemia (Chronic) Vital Signs Temp Pulse Resp BP Pulse Ox O2 Del Method 99.0 F 100 18 145/79 H 96 Room Air 09/01/25 09:11 09/01/25 09:11 09/01/25 09:11 09/01/25 09:11 09/01/25 09:11 09/01/25 09:11 Oxygen Delivery Method Room Air Sodium 144 mmol/L (133-145) 09/01/25 06:25 Potassium 3.8 mmol/L (3.3-5.1) 09/01/25 06:25 Chloride 111 mmol/L (98-108) H 09/01/25 06:25 Carbon Dioxide 22.0 mmol/L (21.0-32.0) 09/01/25 06:25 Anion Gap 11 (5-15) 09/01/25 06:25 BUN 22 mg/dL (4-19) H 09/01/25 06:25 Creatinine 0.81 mg/dL (0.70-1.20) 09/01/25 06:25 Est GFR (MDRD) Non-Af 83 (>60) 09/01/25 06:25 BUN/Creatinine Ratio 27.3 RATIO (10-20) H 09/01/25 06:25 Glucose 87 mg/dL (70-99) 09/01/25 06:25 Assessment/Plan: 1. Pain: acetaminophen 1000mg PO Q8 and oxycodone 5mg PO Q4H PRN pain 7-10. Resident has not used any prn doses at this time. Last LFTs:08/03/25. Check LFTs if resident develops symptoms of hepatoxicity. Consider monitoring LFTs if patient using > 3 gm/day of acetaminophen for prolonged period. Do not exceed 4000 mg in 24 hours. Please continue to monitor for PRN usage and increased pain. 2. Bowel: Miralax 17gm PO daily and oxycodone 5mg PO Q4H PRN pain. Resident has not used any prn doses at this time. Last documented bowel movement:08/31/25. Monitor for usage of prn medications, abdominal pain, frequency of bowel movements, diarrhea. Recommend holding bowel regimen if resident develops diarrhea. 3. DVT prophylaxis: enoxaparin 40mg SC daily. Enoxaparin is a renally dosed medication. CrCl estimated =69 mL/min (using weight of 78kg from 08/03/25).?Dose appropriate for current renal function. Monitor serum creatine periodically. Please continue to monitor for S/S of bleeding/DVT, hemoglobin (last 8.3g/dL) and platelets (last 496,000). 4. Retroperitoneal abscess: levofloxacin 750mg PO daily thru 09/15/25 and metronidazole 500mg PO Q8 thru 09/14/25. Please continue to monitor for diarrhea, S/S of infection, metallic taste in mouth. Levofloxacin is a renally dosed medication. CrCl estimated =69 mL/min (using weight of 78kg from 08/03/25).?Dose appropriate for current renal function. 5. Stroke: aspirin 81mg PO daily. Please continue to monitor for S/S of bleeding/stroke and hemoglobin (last 8.3g/dL). 6. Hyperlipidemia: atorvastatin 40mg PO QHS. Please consider ordering a lipid panel if clinically appropriate. No panel on file. Thanks. Please continue to monitor LFTs (last 08/03/25) and for muscle pain. 7. Diabetes Mellitus II: insulin glargine 30units SC QHS, glipizide 20mg PO daily and glucagon 1mg IM PRN hypoglycemia. Please consider ordering a hemoglobin A1c as there is no level in the chart. Thanks. Please continue to monitor glucose (last 87mg/dL), S/S of hypoglycemia (BEERs), S/S of stroke (BEERs). 8. Hypertension/Chronic HFpEF: lisinopril 40mg PO daily, hydrochlorothiazide 25mg PO daily, amlodipine 10mg PO daily, spironolactone 25mg PO daily and furosemide 20mg PO daily PRN swelling. BP range since admission =145/79-158/78, HR range since admission 100-107.?Resident has not used any prn doses at this time.?BP does not appear to be at goal.?Please consider adding carvedilol or another beta brianna as the HR has been >100. Thanks. Monitor blood pressure, heart rate, symptoms of orthostasis, dizziness.? Consider checking orthostatic blood pressure and implementing fall precautions with any indication of orthostatic hypotension. Monitor serum potassium (last K = 3.8mmol/L), renal function (SCr =69mL/min), for cough and symptoms of angioedema. Monitor calcium (last Ca =8.3mg/dL) and sodium (last Na =144mmol/L).?Monitor volume statu and swelling. Monitor volume status (weight, lower extremity edema, JVD, lung examination) and for symptoms of exacerbation (SOB, dyspnea on exertion, orthopnea, edema, fatigue, wet cough or frothy/pink mucous). 9. Gastric ulcer: pantoprazole 40mg PO BID and sucralfate 1gm 1HR _ACHS PO thru 10/01/25. Monitor for diarrhea (consider possibility of C. diff if develops). Consider serum magnesium level and B12 level with long-term use if indicated. If clinically appropriate, consider dose reduction/weaning of medication due to termite exterminator helper risks of C. diff and fractures (Beers). 10. Nausea: ondansetron ODT 4mg PO Q8H PRN nausea and vomiting. Resident has not used any prn doses at this time. Please continue to monitor for PRN usage, nausea and vomiting. 11. Hypokalemia: potassium chloride 20mEq PO daily. Please continue to monitor potassium (last 3.8mmol/L). 12. Tinea Corporis: nystatin powder topical BID. Monitor for skin breakdown, signs of skin irritation/erythema and infection. Assessment/Plan for indications treated with psychotropic medications: Resident is not prescribed scheduled or prn psychotropic medications at the time of this drug regimen review. Medical chart and medication regimen reviewed. The following medication irregularities or issues were identified: 1. Atorvastatin 40mg PO QHS. Please consider ordering a lipid panel if clinically appropriate. No panel on file. Thanks. 2. Insulin glargine 30units SC QHS, glipizide 20mg PO daily and glucagon 1mg IM PRN hypoglycemia. Please consider ordering a hemoglobin A1c as there is no level in the chart. Thanks. 3. Lisinopril 40mg PO daily, hydrochlorothiazide 25mg PO daily, amlodipine 10mg PO daily, spironolactone 25mg PO daily and furosemide 20mg PO daily PRN swelling. BP range since admission =145/79-158/78, HR range since admission 100-107.?BP does not appear to be at goal.?Please consider adding carvedilol or another beta brianna as the HR has been >100. Thanks. Date Date of Note: 09/01/25 Documented by User: Dr. Ben Eller MD 09/01/25 12:26 TCU RX Drug Regimen Review Provider Comments Provider responsibility Provider Comments to Recommendations by Pharmacy Agree
[2025-09-01] MEDS: Tuberculin,Purif.prot.deriv. 50 TU/ML Vial 0.1 ML ID (10:46)
--- NOTE | 2025-09-01 15:19 | WOUNDNOTE ---
wound photo: sacrum
--- NOTE | 2025-09-01 15:19 | WOUNDNOTE ---
wound photo: sacrum
--- NOTE | 2025-09-01 15:20 | WOUNDNOTE ---
wound photo: abdomen
--- NOTE | 2025-09-01 15:20 | WOUNDNOTE ---
wound photo: abdomen
--- NOTE | 2025-09-01 15:21 | WOUNDNOTE ---
wound photo: inferior abdominal incision
--- NOTE | 2025-09-01 15:21 | WOUNDNOTE ---
wound photo: inferior abdominal incision
--- NOTE | 2025-09-01 15:22 | WOUNDNOTE ---
wound photo: right great toe
--- NOTE | 2025-09-01 15:22 | WOUNDNOTE ---
wound photo: right great toe
--- NOTE | 2025-09-01 15:23 | WOUNDNOTE ---
wound photo: left lateral lower leg
--- NOTE | 2025-09-01 15:23 | WOUNDNOTE ---
wound photo: left lateral lower leg
--- NOTE | 2025-09-01 15:24 | WOUNDNOTE ---
skin photo: bilateral lower leg
--- NOTE | 2025-09-01 15:24 | WOUNDNOTE ---
skin photo: bilateral lower leg
--- NOTE | 2025-09-01 15:25 | WOUNDNOTE ---
wound photo: right lower leg
--- NOTE | 2025-09-01 15:25 | WOUNDNOTE ---
wound photo: right lower leg
--- NOTE | 2025-09-01 16:00 | CHAPLAIN ---
Type of Pastoral Visit _x__ Initial Visit ___ Follow-up Visit ___ On-call Visit ___ General Patient Visit ___ Spiritual Assessment ___ Family Conference ___ Bereavement ___ Rapid Response ___ Code Blue ___ Other (describe below) Pastoral Care Referral From _x__ Patient ___ Family ___ Nurse ___ Physician ___ Vocational Rehabilitation Supervisor ___ Commercial Property Manager ___ Other (describe below) Sacrament/Intervention _x__ Active listening ___ Anointing ___ Yazidi ___ Bereavement ___ Communion ___ Jill exploration ___ ___ Life review _x__ Prayer ___ Reconciliation ___ Sacrament of Sick _x__ Supportive presence ___ Wedding ___ Other (describe below) Pastoral Comments patient just came to TCU yesterday afternoon and is getting acquainted with the process; pt has family members with her; pt is welcoming and expresses her thoughts on prayer we need prayers all the time; pt gives brief description of her situation; offer to meet her at another time is accepted
--- NOTE | 2025-09-01 16:00 | CHAPLAIN ---
Type of Pastoral Visit _x__ Initial Visit ___ Follow-up Visit ___ On-call Visit ___ General Patient Visit ___ Spiritual Assessment ___ Family Conference ___ Bereavement ___ Rapid Response ___ Code Blue ___ Other (describe below) Pastoral Care Referral From _x__ Patient ___ Family ___ Nurse ___ Physician ___ Director Pharmacovigilance ___ Dip Brazier ___ Other (describe below) Sacrament/Intervention _x__ Active listening ___ Anointing ___ Roman Catholic ___ Bereavement ___ Communion ___ Jill exploration ___ ___ Life review _x__ Prayer ___ Reconciliation ___ Sacrament of Sick _x__ Supportive presence ___ Wedding ___ Other (describe below) Pastoral Comments patient just came to TCU yesterday afternoon and is getting acquainted with the process; pt has family members with her; pt is welcoming and expresses her thoughts on prayer we need prayers all the time; pt gives brief description of her situation; offer to meet her at another time is accepted
[2025-09-01 16:10] VITALS: BMI 32.0
[2025-09-01 17:06] VITALS: BP 145/66; RESP 97; TEMP 36.7
--- NOTE | 2025-09-01 21:27 | NURSING ---
Dressing change to midline of abdomen as ordered. Patient tolerated well. Minimal drainage observed, no odor.
--- NOTE | 2025-09-01 21:27 | NURSING ---
Dressing change to midline of abdomen as ordered. Patient tolerated well. Minimal drainage observed, no odor.
[2025-09-02 08:48] LABS: Hematocrit 26.1 % (37-47); Hemoglobin 8.0 g/dL (12.0-15.0)
[2025-09-02 10:11] LABS: Cholesterol 98 mg/dL (<=200); Low Density Lipoprotein Calc. 35 mg/dL; Triglycerides 277 mg/dL; Very Low Density Lipoprotein 55 mg/dL (5-40); cholesterol:hdl ratio screen 4.69
[2025-09-02] MEDS: Aspirin E.C. 81 MG Tablet PO (10:55)
[2025-09-02] MEDS: Potassium Chloride Oral Tablet 20 MEQ PO (10:56)
--- NOTE | 2025-09-02 11:08 | NURSING ---
Shank Tapper Note; Activity Asset: Gerald Alba is independent in her choice of daily activities. At this time she prefers in room family activities over group. Her family will be here daily and will bring items from home if she wants them. The stone cleaner has visited and her episcopal will come in as well. She welcomes the therapy dog when avaliable. Staff will remind her of weekly activities and respect her right to say no.
--- NOTE | 2025-09-02 11:08 | NURSING ---
Respiratory Manager Note; Activity Asset: Gerald Alba is independent in her choice of daily activities. At this time she prefers in room family activities over group. Her family will be here daily and will bring items from home if she wants them. The garment parts cutter hand has visited and her yazidism will come in as well. She welcomes the therapy dog when avaliable. Staff will remind her of weekly activities and respect her right to say no.
--- NOTE | 2025-09-02 15:04 | CASEMGMT ---
TCU admit note: Sw met with patient and patient's daughter at bedside to complete social work admission assessment. Sw introduced self to patient and her daughter and explained sw role. Sw verified patient's contacts and confirmed patient's code status ([id number]). Patient does not have advanced directives done and at this time declined more information on them or completing them. Patient has [employer] fund/ insurance. Patient identified that her goal when medically ready for discharge is to return home with her . Patient's is still working outside of the home, so patient stated if necessary and able, she would also like to obtain assistance. Patient's daughter stated that at time it is not known if assistance at home is something that patient will require or not, more will be known when she is closer to discharge. Sw encouraged patient and family to ask questions when they have them and stated that TCU social work will follow them throughout their TCU admission. No other needs or concerns at this time. Paris Alexandra, FREE LANCE ARTIST, GRAPHITE PAN DRIER TENDER
--- NOTE | 2025-09-02 15:04 | CASEMGMT ---
TCU admit note: Sw met with patient and patient's daughter at bedside to complete social work admission assessment. Sw introduced self to patient and her daughter and explained sw role. Sw verified patient's contacts and confirmed patient's code status ([id number]). Patient does not have advanced directives done and at this time declined more information on them or completing them. Patient has [employer] fund/ insurance. Patient identified that her goal when medically ready for discharge is to return home with her . Patient's is still working outside of the home, so patient stated if necessary and able, she would also like to obtain assistance. Patient's daughter stated that at time it is not known if assistance at home is something that patient will require or not, more will be known when she is closer to discharge. Sw encouraged patient and family to ask questions when they have them and stated that TCU social work will follow them throughout their TCU admission. No other needs or concerns at this time. Paris Alexandra, TIER AND DETONATOR, CONCRETE POLISHER
[2025-09-02 15:42] VITALS: BP 134/67; PULSE 99; RESP 18; TEMP 36.4; O2SAT 95
[2025-09-02] MEDS: Insulin Glargine-YFGN 100 UNIT/ML Pen 20 UNIT SC (21:40)
--- NOTE | 2025-09-02 22:17 | NURSING ---
Results of CT back and called to Dr. Eller. Order to consult general surgery in the AM for abscesses and for sputum culture. Patient and made aware of results and orders. Patient able to produce sputum culture and it is sent down to lab.
[2025-09-03] MEDS: Aspirin E.C. 81 MG Tablet PO (08:55)
[2025-09-03] MEDS: Potassium Chloride Oral Tablet 20 MEQ PO (08:57)
[2025-09-03 09:02] VITALS: BP 128/65; PULSE 100; RESP 18; TEMP 36.7; O2SAT 95
[2025-09-03] MEDS: 0.9% Saline Lock 10 ML Syringe IV (09:03)
--- NOTE | 2025-09-03 10:47 | NURSING ---
Spoke with SARAH Taylor with trauma surgery at . Discussed situation with drainage and CT scan being completed. SARAH says appt Sep. can't be moved up, recommends sending to ER for concerns or if scans look worse. Let her know surgery team here had been consulted and CT scan was pushed to system so they could review. Updated SARAH Dupree with that saw resident this AM.
[2025-09-03 12:51] LABS: Hematocrit 28.1 % (37-47); Hemoglobin 8.5 g/dL (12.0-15.0); Immature Granulocytes Count 0.220 X10^3/uL (0.0-0.0); Mean Corp Hgb Conc 30.2 g/dL (32-36); Mean Corpuscular Volume 89.5 fL (81-99); Mean Platelet Vol. 8.7 fl (6.2-12.0); NRBC Flagged by Analyzer 0.4 % (0-5); Platelet Count 514 K/mm3 (150-450); RBC Distribution Width CV 20.0 % (11.6-14.6); RBC Distribution Width SD 59.7 fl (35.1-43.9); Red Blood Count 3.14 M/mm3 (4.2-5.4); White Blood Count 9.6 K/mm3 (4.4-11.0)
--- NOTE | 2025-09-03 13:05 | NURSING ---
Call from Kelsi SMITH, she and Dr. Sky feel resident needs transferred back to for care, concerned for worsening CT. Called and updated Dr. Eller, order to send to our ER for transfer. Discussed with resident and dtr at bedside. Called report to Stephanie in ER. Will go to room 7.
[2025-09-03 13:44] LABS: Anion Gap 10 (5-15); BUN 19 mg/dL (4-19); BUN/Creat Ratio 22.6 RATIO (10-20); Calcium,Total 7.9 mg/dL (7.6-11.0); Carbon Dioxide 19.9 mmol/L (21.0-32.0); Chloride 111 mmol/L (98-108); Estimated Creatinine Clearance 68.58 ml/min (50-250); Glucose 195 mg/dL (70-99); Potassium 4.4 mmol/L (3.3-5.1)
--- NOTE | 2025-09-03 14:15 | NURSING ---
PT LEFT FLOOR AT 1330 TO ER. FAMILY AWARE.
--- NOTE | 2025-09-03 14:15 | NURSING ---
PT LEFT FLOOR AT 1330 TO ER. FAMILY AWARE.
--- NOTE | 2025-09-03 15:47 | EX.PCM.CON.S ---
Documented by User: Kelsi SMITH PA-C 09/03/25 16:24 Assessment & Plan Assessment/Plan (1) Retroperitoneal abscess: PLAN: Plan I have been consulted in conjunction with Dr. Sky. He has independently evaluated this patient. Patient is a 60 y/o F who has a recent history of retroperitoneal abscesses that were noted on CT scan of the ab/pel and was transferred from our ED to where she had drain placement x 2 and no indication during surgery of a bowel perforation. A small bowel study was completed which did demonstrate a likely perforation at the jejunum. Patient and her daughter in law are unaware of a plan to observe versus perform surgery by surgery team. Majority of patient history was obtained per records and patient's daughter in law. Patient's surgical team was contacted today as to when the patient could be seen and was noted that she has a follow-up on 09/16. It was told to the charge nurse of TCU that if the patient's abscesses have increased in size, to send the patient to the ED, as the surgery office is unable to see the patient sooner. It is being recommended that the patient transfer back to the ED where she can then be transferred to [facility] for ongoing treatment of her significantly enlarged retroperitoneal abscesses. Patient and her daughter in law have had the opportunity to ask and have questions answered. Patient verbally understands and agrees with the plan. Thank you for allowing us to participate in this patient's care. HPI Consult Data Date of Consult: 09/03/25 HPI Narrative Reason for Consultation: Retroperitoneal abscesses HPI Narrative: MERARY ONTIVEROS, is a 60 F who presents to TCU 3 days following being discharged from [facility] for retroperitoneal abscesses with possible perforation. Patient presented to our ED on 08/04 with abdominal pain with associated back pain. CT scan of the ab/pel demonstrated retroperitoneal free air with concern for possible perforated viscus. Patient was transferred to [facility] where she was taken to the OR on 08/05. No bowel perforation was found however retroperitoneal abscess was present. A drain was placed and cultures were obtained. Cultures demonstrated E coli resistant to Zosyn. Patient was placed on Levaquin and Flagyl. Patient was also noted to have hematemesis during her hospitalization. An EGD was performed on 08/07 which demonstrated a single ulcer of the greater curvature of the stomach with oozing hemorrhage and multiple large large ulcers in the body of stomach and antrum. Multiple clips were placed. Repeat CT was obtained on 08/15 which showed a left sanya-abdominal fluid collection. A pigtail drain was placed. Patient was placed on TPN during her hospitalization secondary to poor appetite and need for nutrition. TPN was discontinued on 08/27. She was discharged to [facility] transitional care unit on 08/31 for additional strength and rehabilitation. Patient developed back pain, sweats and chills and increase in ARNOL output of fluid on 09/02. CT scan of the ab/pel was obtained and demonstrated an increase in size by double of the fluid collections. Patient was not aware of a follow-up appointment scheduled with her surgeon. She denies any abdominal pain. She nagel snot overall feel unwell. She notes feeling weak. General surgery was consulted secondary to the significant increase in size of the abscesses. Patient has continued on her current antibiotics. Patient's drains have not been flushed since admission until today. Patient notes she has had an abdominal abscess previously during an episode of diverticulitis. CT scan of ab/pel 09/02 demonstrated: IMPRESSION: Two left-sided retroperitoneal abscesses, one measuring 10.1 x 7.7 cm containing fluid and air with an anterior approach drainage catheter in place, and a second thin fluid and air-containing collection in the posterior perirenal space measuring 11.1 x 0.8 cm with a lateral approach drainage catheter in place. Stable 11 mm right lower lobe pulmonary nodule. Moderate left pleural effusion with associated atelectasis. Left kidney nonobstructive calculi. Right renal simple cyst. [facility] Medical History Hemiparesis affecting left side as late effect of cerebrovascular accident Hypokalemia Essential (primary) hypertension Type 2 diabetes mellitus with hyperglycemia Retroperitoneal abscess Acute blood loss anemia Debility Leg wound, right Home Medications ?Medication ?Instructions ?Recorded ?Last Taken ?Type amlodipine 10 mg tablet 10 mg PO DAILY blood pressure 08/26/19 Unknown History lisinopril 40 mg tablet 40 mg PO DAILY blood pressure 08/22/21 Unknown History aspirin 81 mg tablet,delayed 81 mg PO DAILY heart health 08/03/25 Unknown History release (Adult Aspirin Regimen) atorvastatin 40 mg tablet 40 mg PO QHS cholesterol 08/03/25 Unknown History furosemide 20 mg tablet 20 mg PO DAILY PRN swelling 08/03/25 Unknown History hydrochlorothiazide 25 mg tablet 25 mg PO DAILY blood 08/03/25 Unknown History pressure/water pill insulin glargine 100 unit/mL (3 30 unit subcut QHS diabetes 08/03/25 Unknown History mL) subcutaneous pen (Lantus Solostar U-100 Insulin) potassium chloride 20 mEq 20 meq PO DAILY supplement 08/03/25 Unknown History tablet,extended release(part/cryst) spironolactone 25 mg tablet 25 mg PO DAILY water pill 08/03/25 Unknown History acetaminophen 325 mg tablet 650 mg PO Q6H inflammation/pain 08/31/25 Unknown History glipizide 10 mg tablet, extended 20 mg PO DAILY diabetes 08/31/25 Unknown History release 24 hr levofloxacin 750 mg tablet 750 mg PO DAILY infection 08/31/25 Unknown History metronidazole 500 mg tablet 500 mg PO Q8H diverticulitis 08/31/25 Unknown History ondansetron 4 mg disintegrating 4 mg PO Q8H PRN nausea and vomiting 08/31/25 Unknown History tablet oxycodone 5 mg tablet 5 mg PO Q4H PRN severe pain (scale 08/31/25 Unknown History score 7-10) Allergy/AdvReac Type Severity Reaction Status Date / Time No Known Allergies Allergy Verified 09/03/25 13:31 Family History Mother Colon cancer Surgical History History of delivery Social History household members: spouse housing: house Smoking Status: Never smoker alcohol intake: never what type of physical activity do you participate in: none do you feel safe at home: Yes ROS Constitutional Constitutional: Reports malaise and poor appetite Eyes Eyes: Reports systems reviewed and no addt'l complaints, except as documented ENT HEENT: Reports systems reviewed and no addt'l complaints, except as documented Cardiovascular Cardiovascular: Reports systems reviewed and no addt'l complaints, except as documented Respiratory/Chest Respiratory/Chest: Reports systems reviewed and no addt'l complaints, except as documented Gastrointestinal Gastrointestinal: Reports systems reviewed and no addt'l complaints, except as documented Genitourinary Genitourinary: Reports systems reviewed and no addt'l complaints, except as documented Musculoskeletal Musculoskeletal: Reports systems reviewed and no addt'l complaints, except as documented Integumentary Integumentary: Reports systems reviewed and no addt'l complaints, except as documented Neurologic Neurologic: Reports systems reviewed and no addt'l complaints, except as documented Psychiatric Psychiatric: Reports systems reviewed and no addt'l complaints, except as documented Endocrine Endocrinology: Reports systems reviewed and no addt'l complaints, except as documented Hematologic/Lymphatic Hematologic/Lymphatic: Reports systems reviewed and no addt'l complaints, except as documented Allergic/Immunologic Allergic/Immunologic: Reports systems reviewed and no addt'l complaints, except as documented Physical Exam Const alert, oriented x3 and no apparent distress HEENT normocephalic and head/scalp atraumatic Eyes PERRL Neck full ROM Resp normal respiratory effort and clear to auscultation bilaterally Cardio regular rate and regular rhythm GI GI Narrative: Abdomen- scabbed midline incision with dehiscence of the incision at the very distal aspect. Open wound is being packed with wet to dry dressings. Two ARNOL drains intact on the left lateral abdomen with thick milky yellow fluid noted within the bulbs. Nontender with palpation to the abdomen. no CVA tenderness Back/Spine no CVA tenderness Extremity normal to inspection Skin no rashes or lesions noted Neuro no focal motor deficits and no sensory deficits noted Psych mental status grossly normal, thought process normal and cooperative Mood & Affect: flat affect Lab / Micro Data 09/03/25 12:44 09/03/25 12:44 Labs: Laboratory Results - last 24 hr 09/02/25 16:13: POC Glucose 170 H 09/02/25 21:40: POC Glucose 169 H 09/03/25 06:08: POC Glucose 113 H 09/03/25 11:11: POC Glucose 179 H 09/03/25 12:44: WBC 9.6, RBC 3.14 L, Hgb 8.5 L, Hct 28.1 L, MCV 89.5, MCH 27.1, MCHC 30.2 L, RDW Std Deviation 59.7 H, RDW Coeff of Ector 20.0 H, Plt Count 514 H, MPV 8.7, Immature Gran % (Auto) 2.300 H, Neut % (Auto) 65.4, Lymph % (Auto) 14.8 L, [place] % (Auto) 12.5 H, Eos % (Auto) 3.7, Baso % (Auto) 1.3 H, Absolute Neuts (auto) 6.3, Absolute Lymphs (auto) 1.42, Nucleated RBC % 0.4, Sodium 142, Potassium 4.4, Chloride 111 H, Carbon Dioxide 19.9 L, Anion Gap 10, BUN 19, Creatinine 0.83, Estim Creat Clear Calc 68.58, Est GFR (MDRD) Non-Af 80, BUN/Creatinine Ratio 22.6 H, Glucose 195 H, Calcium 7.9 Micro: Microbiology 09/02/25 22:10 Sputum, Expectorated/Coughed Gram Stain - Final 09/02/25 17:42 Phill Hanson Drainage Gram Stain - Final 09/02/25 17:42 Phill Hanson Drainage Gram Stain - Final Charges/Coding Visit Charges Inpatient E&M: 23960 SNF Init L2 Documented by User: Dr. Tyshawn Sky MD 09/03/25 16:19 Assessment & Plan Assessment/Plan (1) Retroperitoneal abscess: PLAN: Patient is 60-year-old female admitted to the transitional care unit 3 days ago following with a prolonged hospital course at for ex lap 08/05/2025 with exploration for source of pneumoperitoneum. Operative note suggests significant inflammation of the jejunum in the region of the ligament of Treitz but operating team opted to leave duodenum in its original position presuming the area of concern had sealed. Drains were left following this washout. Patient is a poor historian but patient's [id number] is present today and suggest that the output from her cocvry-ro-eee's drains had initially change character several times but overall was decreasing in volume until the day prior to discharge. She notes that there was an increase the day prior to discharge but they were sent here to [place] for ongoing rehab needs. General surgery was asked to evaluate patient here after staff of the transitional care unit obtained a updated CT image of the abdomen pelvis yesterday 09/02/2025 that showed increased size of patient's retroperitoneal fluid collection abscess. Patient had been having some increased discomfort and staff was looking to account for the increased volume noted in the peritoneal drains. On my evaluation patient has a left flank and anterior abdominal wall drain both draining a thin milky discharge. The abdominal exam also finds a laparotomy incision with crusted blood along the incision line apart from superficial dehiscence inferiorly that is being packed with moistened gauze. This gauze is removed and there is evidence of granulating tissue over intact fascia without evidence of infection. In my review of patient's CT imaging I confirm radiology's findings but also identify significant volume of air within the central retroperitoneal compartment. I cannot account for this finding as nursing informs me the only today began flushing the drain towards the patient. Therefore, this is suggestive of possible ongoing communication with the GI tract although I cannot see evidence of extravasation with the oral contrast administered. I shared with patient and her [id number] that I would recommend reevaluation at given their familiarity with her care and it is made known to me that was unable to move up an outpatient visit so they recommended transfer back to their emergency room if there was concern for surgical complication/enlarging abscess. With this being the concern I have recommended the TCU team initiate transfer and have advised them to make patient n.p.o. in anticipation of possible additional intervention on the receiving facility's part. HPI Consult Data Date of Consult: 09/03/25 [facility] Medical History Hemiparesis affecting left side as late effect of cerebrovascular accident Hypokalemia Essential (primary) hypertension Type 2 diabetes mellitus with hyperglycemia Retroperitoneal abscess Acute blood loss anemia Debility Leg wound, right Home Medications ?Medication ?Instructions ?Recorded ?Last Taken ?Type amlodipine 10 mg tablet 10 mg PO DAILY blood pressure 08/26/19 Unknown History lisinopril 40 mg tablet 40 mg PO DAILY blood pressure 08/22/21 Unknown History aspirin 81 mg tablet,delayed 81 mg PO DAILY heart health 08/03/25 Unknown History release (Adult Aspirin Regimen) atorvastatin 40 mg tablet 40 mg PO QHS cholesterol 08/03/25 Unknown History furosemide 20 mg tablet 20 mg PO DAILY PRN swelling 08/03/25 Unknown History hydrochlorothiazide 25 mg tablet 25 mg PO DAILY blood 08/03/25 Unknown History pressure/water pill insulin glargine 100 unit/mL (3 30 unit subcut QHS diabetes 08/03/25 Unknown History mL) subcutaneous pen (Lantus Solostar U-100 Insulin) potassium chloride 20 mEq 20 meq PO DAILY supplement 08/03/25 Unknown History tablet,extended release(part/cryst) spironolactone 25 mg tablet 25 mg PO DAILY water pill 08/03/25 Unknown History acetaminophen 325 mg tablet 650 mg PO Q6H inflammation/pain 08/31/25 Unknown History glipizide 10 mg tablet, extended 20 mg PO DAILY diabetes 08/31/25 Unknown History release 24 hr levofloxacin 750 mg tablet 750 mg PO DAILY infection 08/31/25 Unknown History metronidazole 500 mg tablet 500 mg PO Q8H diverticulitis 08/31/25 Unknown History ondansetron 4 mg disintegrating 4 mg PO Q8H PRN nausea and vomiting 08/31/25 Unknown History tablet oxycodone 5 mg tablet 5 mg PO Q4H PRN severe pain (scale 08/31/25 Unknown History score 7-10) Allergy/AdvReac Type Severity Reaction Status Date / Time No Known Allergies Allergy Verified 09/03/25 13:31 Family History Mother Colon cancer Surgical History History of delivery Social History household members: spouse housing: house Smoking Status: Never smoker alcohol intake: never what type of physical activity do you participate in: none do you feel safe at home: Yes Lab / Micro Data 09/03/25 12:44 09/03/25 12:44
--- NOTE | 2025-09-03 19:46 | DS.PCM_ITS ---
Providers Date of Admission: 08/31/25 Primary Care Physician: Danay Fontenot MD Consultations 08/31/25 18:06 Consult: Onc/Wound/spareribs trimmer Routine Comment: Reason for Consult:: RT buttocks pressure sore 09/02/25 22:09 Consult: General Surgery Routine Consulting Provider: Ben Eller Chi Reason for Consult: Abdominal abscesses EMERGENT Consult: No MD Notified: Yes Date Notified: 09/03/25 Time Notified: 09:00 Method of Notification: Text Reason For Visit: EXPLORATORY LAPAROTOMY - RETROPERITONEAL ABSCESS Diagnosis Discharge Diagnosis (1) Retroperitoneal abscess: Status: Acute Code(s): K68.19 - Other retroperitoneal abscess Plan 60 year old female with below past medical history hospitalized with abdominal pain, free air in abdomen, multiple gastric ulcers, retroperitoneal abscess status post open laparotomy, and IR placed drain, admitted to TCU with debility, here for rehabilitation, strengthening, prior to discharge home with . * Debility - PT/OT. * Pain - Tylenol 1000mg q8, Oxycodone 5mg q4 prn. * Bowel - Miralax 17gm daily, senna/colace 2 tablets bid. * Adult immunization - Administer pneumonia vaccine, covid vaccine, flu vaccine as appropriate. * DVT prophylaxis - Lovenox 40mg sc daily. * Hypertension - Lisinopril 40mg daily, HCTZ 25mg daily, Amlodipine 10mg daily. * Stroke - Aspirin 81mg daily. * Hyperlipidemia - Atorvastatin 40mg qhs. * Chronic HFpEF - Lisinopril 40mg daily, Aldactone 25mg daily, Furosemide 20mg daily prn. * Diabetes Mellitus II - Glipizide 20mg daily, Glargine 20 units daily, Glucagon 1mg im x 1 prn. * Retroperitoneal abscess - Levaquin 750mg daily thru 09/15/2025, Flagyl 500mg q8 thru 09/14/2025. * Tinea Corporis - Nystatin powder topical bid. * Nausea - Zofran odt 4mg q8 prn. * Hypokalemia KCL 20meq daily. Medications at Discharge Home Medications amlodipine 10 mg tablet 10 mg PO DAILY blood pressure 08/26/19 lisinopril 40 mg tablet 40 mg PO DAILY blood pressure 08/22/21 aspirin 81 mg tablet,delayed release (Adult Aspirin Regimen) 81 mg PO DAILY heart health 08/03/25 atorvastatin 40 mg tablet 40 mg PO QHS cholesterol 08/03/25 furosemide 20 mg tablet 20 mg PO DAILY PRN swelling 08/03/25 hydrochlorothiazide 25 mg tablet 25 mg PO DAILY blood pressure/water pill 08/03/25 insulin glargine 100 unit/mL (3 mL) subcutaneous pen (Lantus Solostar U-100 Insulin) 30 unit subcut QHS diabetes 08/03/25 potassium chloride 20 mEq tablet,extended release(part/cryst) 20 meq PO DAILY supplement 08/03/25 spironolactone 25 mg tablet 25 mg PO DAILY water pill 08/03/25 acetaminophen 325 mg tablet 650 mg PO Q6H inflammation/pain 08/31/25 glipizide 10 mg tablet, extended release 24 hr 20 mg PO DAILY diabetes 08/31/25 levofloxacin 750 mg tablet 750 mg PO DAILY infection 08/31/25 metronidazole 500 mg tablet 500 mg PO Q8H diverticulitis 08/31/25 ondansetron 4 mg disintegrating tablet 4 mg PO Q8H PRN nausea and vomiting 08/31/25 oxycodone 5 mg tablet 5 mg PO Q4H PRN severe pain (scale score 7-10) 08/31/25 Hospital Course Operations None Procedures None Summary of Care Provided Minutes Spent on Discharge: 15 Hospital Course: 60 year old female with below past medical history hospitalized with abdominal pain, free air in abdomen, multiple gastric ulcers, retroperitoneal abscess status post open laparotomy, and IR placed drain, admitted to TCU with debility, here for rehabilitation, strengthening, prior to discharge home with . 09/02/2025 Patient developed back pain, sweats and chills and increase in ARNOL output of fluid on 09/02. CT scan of the ab/pel was obtained and demonstrated an increase in size by double of the fluid collections. Discharge to [facility] ED 09/03/2025 for evaluation, transfer to [facility]. Weight / BMI Weight Weight: 79.379 kg Body Mass Index (BMI) 32.0 ABG / Lab / Microbiology Data 09/03/25 12:44 09/03/25 12:44 Laboratory: Laboratory Results - last 24 hr 09/02/25 21:40: POC Glucose 169 H 09/03/25 06:08: POC Glucose 113 H 09/03/25 11:11: POC Glucose 179 H 09/03/25 12:44: WBC 9.6, RBC 3.14 L, Hgb 8.5 L, Hct 28.1 L, MCV 89.5, MCH 27.1, MCHC 30.2 L, RDW Std Deviation 59.7 H, RDW Coeff of Ector 20.0 H, Plt Count 514 H, MPV 8.7, Immature Gran % (Auto) 2.300 H, Neut % (Auto) 65.4, Lymph % (Auto) 14.8 L, [place] % (Auto) 12.5 H, Eos % (Auto) 3.7, Baso % (Auto) 1.3 H, Absolute Neuts (auto) 6.3, Absolute Lymphs (auto) 1.42, Nucleated RBC % 0.4, Sodium 142, Potassium 4.4, Chloride 111 H, Carbon Dioxide 19.9 L, Anion Gap 10, BUN 19, Creatinine 0.83, Estim Creat Clear Calc 68.58, Est GFR (MDRD) Non-Af 80, B UN/Creatinine Ratio 22.6 H, Glucose 195 H, Calcium 7.9 Microbiology: Microbiology 09/02/25 22:10 Sputum, Expectorated/Coughed Gram Stain - Final 09/02/25 17:42 Phill Hanson Drainage Gram Stain - Final 09/02/25 17:42 Phill Hanson Drainage Gram Stain - Final D/C Instructions Discharge Activity: Return to Normal Activity, May Shower and Use Walker Weight Bearing Status: Weight bearing as tolerated Call your doctor if you observe: Fever of 101 or Higher, Inability to urinate, Inability to have a bowel movement, Shortness of breath, Dizziness, Fainting spells, Swelling in the ankles, Chest pain and Uncontrolled pain DC O2, CPAP, BIPAP Needs Home O2 Discharge instructions: No Additional Instructions: Discharge to [facility] ED 09/03/2025 for evaluation, transfer to [facility]. Please Follow Up With: Trauma Center (Cynthia SMITH) Meaningful Use Info Meaningful Use Meaningful Use Diagnoses (Choose all that apply): None applicable Discharge Plan Admission Admit Date/Time: 08/31/25 17:14 Attending Provider: Ben Ellre Chi Primary Care Provider: Danay Fontenot Consulting Providers: Ben Eller Chi Instructions Additional Instructions / Restrictions: Discharge to [facility] ED 09/03/2025 for evaluation, transfer to [facility]. Discharge Orders/Prescriptions Prescriptions: No Action lisinopril 40 mg tablet 40 mg PO DAILY Patient Comments: TAKE ONE TABLET BY MOUTH DAILY amlodipine 10 MG tablet 10 mg PO DAILY atorvastatin 40 mg tablet 40 mg PO QHS hydrochlorothiazide 25 mg tablet 25 mg PO DAILY furosemide 20 mg tablet 20 mg PO DAILY PRN (Reason: swelling) insulin glargine [Lantus Solostar U-100 Insulin] 100 unit/mL (3 mL) insulin pen 30 unit subcut QHS spironolactone 25 mg tablet 25 mg PO DAILY potassium chloride 20 mEq tablet,ER particles/crystals 20 meq PO DAILY aspirin [Adult Aspirin Regimen] 81 mg tablet,delayed release (DR/EC) 81 mg PO DAILY glipizide 10 mg tablet extended release 24hr 20 mg PO DAILY levofloxacin 750 mg tablet 750 mg PO DAILY Patient Comments: x14 days metronidazole 500 mg tablet 500 mg PO Q8H Rx Instructions: x14 days ondansetron 4 mg tablet,disintegrating 4 mg PO Q8H PRN (Reason: nausea and vomiting) oxycodone 5 mg tablet 5 mg PO Q4H PRN (Reason: severe pain (scale score 7-10)) acetaminophen 325 mg tablet 650 mg PO Q6H Referrals / Follow Up: Danay Fontenot MD [Primary Care Provider, Family Practice] Disposition Disposition (needs filled in before D/C Order can be placed): [facility]
--- NOTE | 2025-09-03 19:46 | DS.PCM_ITS ---
Providers Date of Admission: 08/31/25 Primary Care Physician: Danay Fontenot MD Consultations 08/31/25 18:06 Consult: Onc/Wound/law researcher Routine Comment: Reason for Consult:: RT buttocks pressure sore 09/02/25 22:09 Consult: General Surgery Routine Consulting Provider: Ben Eller Chi Reason for Consult: Abdominal abscesses EMERGENT Consult: No MD Notified: Yes Date Notified: 09/03/25 Time Notified: 09:00 Method of Notification: Text Reason For Visit: EXPLORATORY LAPAROTOMY - RETROPERITONEAL ABSCESS Diagnosis Discharge Diagnosis (1) Retroperitoneal abscess: Status: Acute Code(s): K68.19 - Other retroperitoneal abscess Plan 60 year old female with below past medical history hospitalized with abdominal pain, free air in abdomen, multiple gastric ulcers, retroperitoneal abscess status post open laparotomy, and IR placed drain, admitted to TCU with debility, here for rehabilitation, strengthening, prior to discharge home with . * Debility - PT/OT. * Pain - Tylenol 1000mg q8, Oxycodone 5mg q4 prn. * Bowel - Miralax 17gm daily, senna/colace 2 tablets bid. * Adult immunization - Administer pneumonia vaccine, covid vaccine, flu vaccine as appropriate. * DVT prophylaxis - Lovenox 40mg sc daily. * Hypertension - Lisinopril 40mg daily, HCTZ 25mg daily, Amlodipine 10mg daily. * Stroke - Aspirin 81mg daily. * Hyperlipidemia - Atorvastatin 40mg qhs. * Chronic HFpEF - Lisinopril 40mg daily, Aldactone 25mg daily, Furosemide 20mg daily prn. * Diabetes Mellitus II - Glipizide 20mg daily, Glargine 20 units daily, Glucagon 1mg im x 1 prn. * Retroperitoneal abscess - Levaquin 750mg daily thru 09/15/2025, Flagyl 500mg q8 thru 09/14/2025. * Tinea Corporis - Nystatin powder topical bid. * Nausea - Zofran odt 4mg q8 prn. * Hypokalemia KCL 20meq daily. Medications at Discharge Home Medications amlodipine 10 mg tablet 10 mg PO DAILY blood pressure 08/26/19 lisinopril 40 mg tablet 40 mg PO DAILY blood pressure 08/22/21 aspirin 81 mg tablet,delayed release (Adult Aspirin Regimen) 81 mg PO DAILY heart health 08/03/25 atorvastatin 40 mg tablet 40 mg PO QHS cholesterol 08/03/25 furosemide 20 mg tablet 20 mg PO DAILY PRN swelling 08/03/25 hydrochlorothiazide 25 mg tablet 25 mg PO DAILY blood pressure/water pill 08/03/25 insulin glargine 100 unit/mL (3 mL) subcutaneous pen (Lantus Solostar U-100 Insulin) 30 unit subcut QHS diabetes 08/03/25 potassium chloride 20 mEq tablet,extended release(part/cryst) 20 meq PO DAILY supplement 08/03/25 spironolactone 25 mg tablet 25 mg PO DAILY water pill 08/03/25 acetaminophen 325 mg tablet 650 mg PO Q6H inflammation/pain 08/31/25 glipizide 10 mg tablet, extended release 24 hr 20 mg PO DAILY diabetes 08/31/25 levofloxacin 750 mg tablet 750 mg PO DAILY infection 08/31/25 metronidazole 500 mg tablet 500 mg PO Q8H diverticulitis 08/31/25 ondansetron 4 mg disintegrating tablet 4 mg PO Q8H PRN nausea and vomiting 08/31/25 oxycodone 5 mg tablet 5 mg PO Q4H PRN severe pain (scale score 7-10) 08/31/25 Hospital Course Operations None Procedures None Summary of Care Provided Minutes Spent on Discharge: 15 Hospital Course: 60 year old female with below past medical history hospitalized with abdominal pain, free air in abdomen, multiple gastric ulcers, retroperitoneal abscess status post open laparotomy, and IR placed drain, admitted to TCU with debility, here for rehabilitation, strengthening, prior to discharge home with . 09/02/2025 Patient developed back pain, sweats and chills and increase in ARNOL output of fluid on 09/02. CT scan of the ab/pel was obtained and demonstrated an increase in size by double of the fluid collections. Discharge to [facility] ED 09/03/2025 for evaluation, transfer to [facility]. Weight / BMI Weight Weight: 79.379 kg Body Mass Index (BMI) 32.0 ABG / Lab / Microbiology Data 09/03/25 12:44 09/03/25 12:44 Laboratory: Laboratory Results - last 24 hr 09/02/25 21:40: POC Glucose 169 H 09/03/25 06:08: POC Glucose 113 H 09/03/25 11:11: POC Glucose 179 H 09/03/25 12:44: WBC 9.6, RBC 3.14 L, Hgb 8.5 L, Hct 28.1 L, MCV 89.5, MCH 27.1, MCHC 30.2 L, RDW Std Deviation 59.7 H, RDW Coeff of Ector 20.0 H, Plt Count 514 H, MPV 8.7, Immature Gran % (Auto) 2.300 H, Neut % (Auto) 65.4, Lymph % (Auto) 14.8 L, [place] % (Auto) 12.5 H, Eos % (Auto) 3.7, Baso % (Auto) 1.3 H, Absolute Neuts (auto) 6.3, Absolute Lymphs (auto) 1.42, Nucleated RBC % 0.4, Sodium 142, Potassium 4.4, Chloride 111 H, Carbon Dioxide 19.9 L, Anion Gap 10, BUN 19, Creatinine 0.83, Estim Creat Clear Calc 68.58, Est GFR (MDRD) Non-Af 80, B UN/Creatinine Ratio 22.6 H, Glucose 195 H, Calcium 7.9 Microbiology: Microbiology 09/02/25 22:10 Sputum, Expectorated/Coughed Gram Stain - Final 09/02/25 17:42 Phill Hanson Drainage Gram Stain - Final 09/02/25 17:42 Phill Hanson Drainage Gram Stain - Final D/C Instructions Discharge Activity: Return to Normal Activity, May Shower and Use Walker Weight Bearing Status: Weight bearing as tolerated Call your doctor if you observe: Fever of 101 or Higher, Inability to urinate, Inability to have a bowel movement, Shortness of breath, Dizziness, Fainting spells, Swelling in the ankles, Chest pain and Uncontrolled pain DC O2, CPAP, BIPAP Needs Home O2 Discharge instructions: No Additional Instructions: Discharge to [facility] ED 09/03/2025 for evaluation, transfer to [facility]. Please Follow Up With: Trauma Center (Cynthia SMITH) Meaningful Use Info Meaningful Use Meaningful Use Diagnoses (Choose all that apply): None applicable Discharge Plan Admission Admit Date/Time: 08/31/25 17:14 Attending Provider: Ben Eller Chi Primary Care Provider: Danay Fontenot Consulting Providers: Ben Elelr Chi Instructions Additional Instructions / Restrictions: Discharge to [facility] ED 09/03/2025 for evaluation, transfer to [facility]. Discharge Orders/Prescriptions Prescriptions: No Action lisinopril 40 mg tablet 40 mg PO DAILY Patient Comments: TAKE ONE TABLET BY MOUTH DAILY amlodipine 10 MG tablet 10 mg PO DAILY atorvastatin 40 mg tablet 40 mg PO QHS hydrochlorothiazide 25 mg tablet 25 mg PO DAILY furosemide 20 mg tablet 20 mg PO DAILY PRN (Reason: swelling) insulin glargine [Lantus Solostar U-100 Insulin] 100 unit/mL (3 mL) insulin pen 30 unit subcut QHS spironolactone 25 mg tablet 25 mg PO DAILY potassium chloride 20 mEq tablet,ER particles/crystals 20 meq PO DAILY aspirin [Adult Aspirin Regimen] 81 mg tablet,delayed release (DR/EC) 81 mg PO DAILY glipizide 10 mg tablet extended release 24hr 20 mg PO DAILY levofloxacin 750 mg tablet 750 mg PO DAILY Patient Comments: x14 days metronidazole 500 mg tablet 500 mg PO Q8H Rx Instructions: x14 days ondansetron 4 mg tablet,disintegrating 4 mg PO Q8H PRN (Reason: nausea and vomiting) oxycodone 5 mg tablet 5 mg PO Q4H PRN (Reason: severe pain (scale score 7-10)) acetaminophen 325 mg tablet 650 mg PO Q6H Referrals / Follow Up: Danay Fontenot MD [Primary Care Provider, Family Practice] Disposition Disposition (needs filled in before D/C Order can be placed): [facility]
--- NOTE | 2025-09-04 08:31 | NURSING ---
Guide Alpine Note; MDS for 09/03/2025 Complete
--- NOTE | 2025-09-04 08:31 | NURSING ---
Instructional Services Librarian Note; MDS for 09/03/2025 Complete
--- NOTE | 2025-09-04 12:00 | CASEMGMT ---
Social Work SW completed BIMS () and PHQ-9 (11/07) with admission assessment. Kim Bazan PROJECT PLANNER GAS REVERSER
--- NOTE | 2025-09-04 12:00 | CASEMGMT ---
Social Work SW completed BIMS () and PHQ-9 (11/07) with admission assessment. Kim Bazan STARCHMAKER FOOD AND BEVERAGE INTERN
--- NOTE | 2025-09-08 10:55 | MDS.RN ---
Information for the MDS was obtained from review of the clinical record, interview of resident, staff, and direct observation of resident?s care.
--- NOTE | 2025-09-08 10:55 | MDS.RN ---
Information for the MDS was obtained from review of the clinical record, interview of resident, staff, and direct observation of resident?s care.
== END 2025-09-03 13:30 | disposition short-term general hospital (02) | DRG 949 ==
PROVIDERS: Physician Assistant; Admitting Provider Family Medicine Geriatric Medicine; PCP Student in an Organized Health Care Education/Training Program; Referring Provider Family Medicine Geriatric Medicine; Visit Provider Family Medicine Geriatric Medicine
DX: Z48.815 Encounter for surgical aftercare following surgery on the digestive system (principal); K68.19 Other retroperitoneal abscess; K25.4 Chronic or unspecified gastric ulcer with hemorrhage; I69.354 Hemiplegia and hemiparesis following cerebral infarction affecting left non-dominant side; J91.8 Pleural effusion in other conditions classified elsewhere; I50.32 Chronic diastolic (congestive) heart failure; Z16.11 Resistance to penicillins; L89.150 Pressure ulcer of sacral region, unstageable; E11.65 Type 2 diabetes mellitus with hyperglycemia; B35.4 Tinea corporis; I11.0 Hypertensive heart disease with heart failure; E78.5 Hyperlipidemia, unspecified; E87.6 Hypokalemia; Z79.4 Long term (current) use of insulin; B96.20 Unspecified Escherichia coli [E. coli] as the cause of diseases classified elsewhere; Z79.84 Long term (current) use of oral hypoglycemic drugs; Z79.899 Other long term (current) drug therapy; Z79.82 Long term (current) use of aspirin; G47.00 Insomnia, unspecified
CPT/HCPCS: 36415; 80048; 80061; 82962; 83036; 85014; 85018; 85025; 87070; 87075; 87077; 87186; 87205; 97110; 97162; 97166; 97530; 97535; A4216

== ENCOUNTER → 2025-09-02 | Outpatient (CLI) | payer SELFPAY, OTHER ==
--- NOTE | 2025-09-02 19:47 | CT_ITS ---
PROCEDURE: ABDOMEN/PELVIS WITH CONTRAST 09/02/2025 REASON FOR EXAM: RETROPERITONEAL ABSCESS TECHNIQUE: Procedure Code: [id number] Modality: CT Procedure: ABDOMEN/PELVIS WITH CONTRAST Coronal and Sagittal reconstruction series were provided. One or more dose reduction techniques were used (e.g., Automated exposure control, adjustment of the mA and/or kV according to patient size, use of iterative reconstruction technique. COMPARISON: 08/03/2025. FINDINGS: Unchanged right lower lobe 11 mm nodule. Moderate left pleural effusion with associated atelectasis. There is a left anterior approach drainage catheter with terminates within a 10.1 x 7.7 cm fluid and air containing abscess which there is an additional left lateral approach pigtail catheter within a thin fluid and air-containing abscess in the posterior perirenal space which measures 11.1 x 0.8 cm. The liver is unremarkable. Contracted gallbladder. The pancreas, spleen, adrenals unremarkable. Right kidney simple cyst. Symmetric enhancement of the bilateral kidneys. Left kidney nonobstructive calculi. No hydroureteronephrosis. The urinary bladder is unremarkable. Anteverted uterus. Normal caliber large and small bowel. Tracks downward into the presacral space. CT/Abdomen/Pelvis WITH Contrast IMPRESSION: Two left-sided retroperitoneal abscesses, one measuring 10.1 x 7.7 cm containin g fluid and air with an anterior approach drainage catheter in place, and a second thin fluid and air-containing collection in the posterior perirenal space measuring 11.1 x 0.8 cm with a lateral approach drainage catheter in place. Stable 11 mm right lower lobe pulmonary nodule. Moderate left pleural effusion with associated atelectasis. Left kidney nonobstructive calculi. Right renal simple cyst. Reading Location: [id number]
== END | disposition home or self-care (01) ==
PROVIDERS: PCP Student in an Organized Health Care Education/Training Program; Referring Provider Family Medicine Geriatric Medicine; Visit Provider Family Medicine Geriatric Medicine
DX: K68.19 Other retroperitoneal abscess (principal); N28.1 Cyst of kidney, acquired; N20.0 Calculus of kidney
CPT/HCPCS: 74177; Q9967

== ENCOUNTER 2025-09-03 13:30 | Emergency (ER) | payer OTHER, SELFPAY ==
[2025-09-03] VITALS (11 sets, daily range): BP systolic 123–162; BP diastolic 52–82; PULSE 89–104; RESP 21–27; TEMP 36.4–36.7; O2SAT 95–100; BMI 33.5
[2025-09-03 14:46] LABS: Hematocrit 26.0 % (37-47); Hemoglobin 7.8 g/dL (12.0-15.0); Immature Granulocytes Count 0.290 X10^3/uL (0.0-0.0); Mean Corp Hgb Conc 30.0 g/dL (32-36); Mean Corpuscular Volume 90.3 fL (81-99); Mean Platelet Vol. 8.7 fl (6.2-12.0); NRBC Flagged by Analyzer 0.4 % (0-5); Platelet Count 459 K/mm3 (150-450); RBC Distribution Width CV 19.9 % (11.6-14.6); RBC Distribution Width SD 59.2 fl (35.1-43.9); Red Blood Count 2.88 M/mm3 (4.2-5.4); White Blood Count 10.8 K/mm3 (4.4-11.0)
[2025-09-03 15:21] LABS: AST(SGOT) 16 U/L (<=31); Alanine Aminotransfer ALT/SGPT 7 U/L (<=34); Albumin, Serum 2.3 g/dL (3.4-4.8); Alkaline Phosphatase 128 U/L (35-104); Anion Gap 10 (5-15); BUN 20 mg/dL (4-19); BUN/Creat Ratio 23.7 RATIO (10-20); Calcium,Total 8.0 mg/dL (7.6-11.0); Carbon Dioxide 20.3 mmol/L (21.0-32.0); Chloride 112 mmol/L (98-108); Estimated Creatinine Clearance 67.73 ml/min (50-250); Globulin 3.3 g/dL (2.2-4.2); Glucose 174 mg/dL (70-99); Potassium 4.2 mmol/L (3.3-5.1)
== END 2025-09-03 20:54 | disposition short-term general hospital (02) ==
PROVIDERS: Emergency Provider Emergency Medicine; PCP Student in an Organized Health Care Education/Training Program; Visit Provider Emergency Medicine
DX: K68.19 Other retroperitoneal abscess (principal); E11.9 Type 2 diabetes mellitus without complications; Z79.4 Long term (current) use of insulin; I10 Essential (primary) hypertension; Z79.899 Other long term (current) drug therapy; Z79.84 Long term (current) use of oral hypoglycemic drugs; Z79.82 Long term (current) use of aspirin; D64.9 Anemia, unspecified
CPT/HCPCS: 80053; 83605; 85025; 99283; A4216

== ENCOUNTER 2025-09-09 17:58 | Inpatient (IN) | payer SELFPAY, OTHER ==
[2025-09-09 18:00] VITALS: BP 137/76; PULSE 98; RESP 18; TEMP 526.1; TEMP 979; O2SAT 92; BMI 32.3
[2025-09-09 19:38] VITALS: PULSE 50; O2SAT 97
--- NOTE | 2025-09-09 19:58 | NURSING ---
Pt reports having purewick at night during last admission. Contacted Dr. Eller via secure text message to obtain order. Per aniket Hdz to have purewick @ only. Pt requesting to have Tylenol 650 mg PO q6H order changed to 1000 mg PO q8H. Also contacted Dr. Eller via secure text message to clarify order. Per aniket Hdz to change Tylenol order to 1000 mg PO q8H. Orders verified via text back.
--- NOTE | 2025-09-09 21:11 | HP.PCM_ITS ---
HPI - General General Date of Admission: 09/09/25 Date of Service: 09/02/25 HPI Narrative MERARY ONTIVEROS, is a 60 Female with history of T2DM, HTN, HLD, perforated diverticulitis c/b abscess s/p exlap and drain placement (2016), hiatal hernia repair, recent hospital admission for retroperitoneal abscess s/p ex lap with drain placement 08/05/2025, UGIB s/p EGD w/ clipping 08/07/2025, IR pigtail drain placement in left sanya-abdomen abscess 08/16/2025, discharged to TCU on 08/31/2025 on PO abx (Levaquin, Flagyl) who presented to [facility] as a transfer from [facility] for increased size of retroperitoneal fluid collection on interval CT scan. On latest CT, pt has two left-sided retroperitoneal abscesses (10.1 x 7.7 cm and 11.1 x 0.8cm) with drains present. Amylase, Lipase, and triglycerides sent from drains and elevated. Patient placed on a low fat diet. She underwent MRCP with no obvious leak to the pancreas. Patient remained in the hospital for close monitoring of drains. Outputs continued to decrease with adjustment in diet. Patient will need interval CT in 2 weeks to evaluate intra-abdominal fluid collections. Repeat CT should be done prior to follow up appointment with surgery. Patient will need a renal ultrasound for right hydronephrosis and close follow up with urology given incidental asymptomatic finding of hydronephrosis on MRCP. Patient is being discharged back to TCU with both drains in place. IR drain will continued to be flushed three times a day with 10cc saline flushes. Both drains output should be closely monitored and recorded. Based on follow up CT results and patient's clinical status if drains can then be removed. 09/09/2025 Admit to TCU with debility, here for rehabilitation, strengthening, prior to discharge home with . [facility] Medical History (Updated 09/09/25 @ 21:[address] Ben Eller MD) VRE (vancomycin resistant enterococcus) culture positive Hemiparesis affecting left side as late effect of cerebrovascular accident Hypokalemia Essential (primary) hypertension Type 2 diabetes mellitus with hyperglycemia Retroperitoneal abscess Acute blood loss anemia Debility Leg wound, right Home Medications Medication Instructions Recorded Last Taken Type amlodipine 10 mg tablet 10 mg PO DAILY blood pressur e 08/26/19 09/09/25 08:50 History lisinopril 40 mg tablet 40 mg PO DAILY blood pressur e 08/22/21 Unknown History aspirin 81 mg tablet,delayed 81 mg PO DAILY heart heal th 08/03/25 09/09/25 08:40 History release (Adult Aspirin Regimen) atorvastatin 40 mg tablet 40 mg PO QHS cholesterol 09/08/25 21:45 History furosemide 20 mg tablet 20 mg PO DAILY PRN swelling 08/03/25 Unknown History hydrochlorothiazide 25 mg tablet 25 mg PO DAILY blood 08/03/25 09/09/25 08:40 History pressure/water pill insulin glargine 100 unit/mL (3 30 unit subcut QHS brittanie betes 08/03/25 Unknown History mL) subcutaneous pen (Lantus Solostar U-100 Insulin) potassium chloride 20 mEq 20 meq PO DAILY supplement 0 08/03/25 Unknown History tablet,extended release(part/cryst) spironolactone 25 mg tablet 25 mg PO DAILY water pill 08/03/25 09/09/25 08:40 History acetaminophen 325 mg tablet 650 mg PO Q6H inflammation /pain 08/31/25 09/09/25 12:45 History glipizide 10 mg tablet, extended 20 mg PO DAILY diabet es 08/31/25 Unknown History release 24 hr levofloxacin 750 mg tablet 750 mg PO DAILY infection 1 09/09/25 08:40 History ondansetron 4 mg disintegrating 4 mg PO Q8H PRN nausea and vomiting 08/31/25 Unknown History tablet oxycodone 5 mg tablet 5 mg PO Q4H PRN severe pain (scale 08/31/25 09/09/25 12:40 History score 7-10) octreotide acetate 100 mcg/mL 100 mcg subcut Q8H Ask y our 09/09/25 09/09/25 12:40 History injection solution (Sandostatin) primary Doctor polyethylene glycol 3350 17 17 g PO DAILY Constipation 09/09/25 Unknown History gram/dose oral powder sennosides 8.6 mg-docusate sodium 1 tab-cap PO QHS Con stipation 09/09/25 Unknown History 50 mg capsule (Senna Plus) Allergy/AdvReac Type Severity Reaction Status Date / Time No Known Allergies Allergy Verified 09/03/25 13:31 Family History Mother Colon cancer Surgical History History of laparotomy History of delivery Social History household members: spouse housing: house Smoking Status: Never smoker alcohol intake: never what type of physical activity do you participate in: none do you feel safe at home: Yes ROS Constitutional Constitutional: Reports weakness; Denies chills, fever(s) or weight gain ENT HEENT: Denies headache(s), nasal congestion or nasal discharge Cardiovascular Cardiovascular: Denies chest pain or palpitations Respiratory/Chest Respiratory/Chest: Denies cough, excessive phlegm production or shortness of breath with exertion Gastrointestinal Gastrointestinal: Denies abdominal pain, nausea or vomiting Genitourinary Genitourinary: Denies dysuria Musculoskeletal Musculoskeletal: Denies joint pain or joint swelling Integumentary Integumentary: Denies rash or wounds Neurologic Neurologic: Denies focal weakness, numbness or tingling Psychiatric Psychiatric: Denies anxiety, auditory hallucinations, depression, homicidal ideation or suicidal ideation Vital Signs Vital Signs Vital Signs: 09/09/25 18:00 Temperature 979 F H Temperature Source Temporal Pulse Rate 98 Respiratory Rate 18 Blood Pressure 137/76 H Blood Pressure Mean 96 Blood Pressure Source Monitor Blood Pressure Position Semi-Fowlers Blood Pressure Location Left Arm Pulse Ox 92 Oxygen Delivery Method Nasal Cannula Oxygen Flow Rate (L/min) 2 Weight Weight: 80.286 kg Body Mass Index (BMI) 32.3 Physical Exam Const alert General Appearance: cooperative HEENT normocephalic Eyes PERRL and EOMs intact bilaterally Neck supple, no JVD and no carotid bruits Resp normal respiratory effort, normal air movement and clear to auscultation bilaterally Cardio regular rate and regular rhythm GI normal to inspection, nondistended, normoactive bowel sounds, non-tender and non-distended GI Narrative: Midline incision healed, 2 ARNOL drains left abdomen, draining watery norman liquid. Extremity normal capillary refill General Extremity: Negative for edema Skin no rashes or lesions noted General Skin Exam: no breakdown Psych affect normal Appearance: appropriate Assessment & Plan Assessment/Plan (1) Debility: (2) Intraabdominal fluid collection: (3) Gastric ulcer: (4) Essential (primary) hypertension: (5) Stroke: (6) Hyperlipidemia: (7) Chronic heart failure with preserved ejection fraction (HFpEF): (8) Type 2 diabetes mellitus with hyperglycemia: (9) Hypokalemia: PLAN: Plan 60 year old female with below past medical history hospitalized for intra- abdominal fluid collections high in amylase, lipase, triglycerides, pancreatic fistula ruled out by mrcp, treated with low fat diet, complicated by right hydronephrosis, admitted to TCU with debility, here for rehabilitation, strengthening, prior to discharge home with . * Debility - PT/OT. * Pain - Tylenol 1000mg q8, Oxycodone 5mg q4 prn. * Bowel - senna/colace 1 tablet qhs, Miralax 17gm daily. * Adult immunization - Administer pneumonia vaccine, covid vaccine, flu vaccine as appropriate. * DVT prophylaxis - Lovenox 40mg sc daily. * Right hydronephrosis - order renal ultrasound, consider urology consultation. * HTN - Lisinopril 40mg daily, HCTZ 25mg daily, Amlodipine 10mg daily. * CV prophylaxis - Aspirin 81mg daily. * Hyperlipidemia - Atorvastatin 40mg qhs. * Chronic HFpEF - Lisinopril 40mg daily, Aldactone 25mg daily, Furosemide 20mg daily prn. * Diabetes Mellitus II - Glipizide 20mg qam, Glargine 30 units qhs, Glucagon 1mg im x 1 prn. * Retroperitoneal abscess - Levaquin 750mg daily thru 09/27/2025, CT A/P in 2 weeks, f/u general surgery. * Pancreatic fluid collection - Octreotide 0.1mg sc q8, monitor drain outputs closely, CT A/P in 2 weeks, f/u general surgery. * Nausea - Zofran 4mg q8 prn. * Hypokalemia - KCL 20meq daily.
[2025-09-09] MEDS: 0.9% Saline Lock 10 ML Syringe IV (21:50)
[2025-09-09] MEDS: Insulin Glargine-YFGN 100 UNIT/ML Pen 30 UNIT SC (21:54)
[2025-09-09] MEDS: Octreotide 0.1 MG/ML ML SC (22:07)
[2025-09-10] MEDS: Octreotide 0.1 MG/ML ML SC ×3 (05:10→20:09)
[2025-09-10] MEDS: 0.9% Saline Lock 10 ML Syringe IV ×2 (05:15→22:02)
--- NOTE | 2025-09-10 05:55 | US_ITS ---
PROCEDURE: KIDNEY AND BLADDER 09/10/2025 REASON FOR EXAM: RIGHT HYDRONEPHROSIS ON MRCP. TECHNIQUE: Procedure Code: USKI Modality: US Procedure: KIDNEY AND BLADDER COMPARISON: September 02, 2025, August 03, 2025 FINDINGS: Kidneys: Right kidney is 12.4 x 4.5 x 5.5 cm, while the left kidney is 11.0 x 4.5 x 3.7 cm. [place]: Absent Cysts or Masses: Simple cyst right upper pole 3.9 x 3.3 x 3.6 cm. Bladder: Unremarkable. Prevoid bladder volume 123 cc. Jets were not seen. Postvoid imaging was not performed. US/Kidney and Bladder IMPRESSION: 1. Simple right renal cysts. No follow-up required, Brady 1. 2. No collecting system dilation. Reading Location: [id number]
[2025-09-10 06:59] VITALS: O2SAT 97
[2025-09-10 07:52] LABS: Hematocrit 29.4 % (37-47); Hemoglobin 8.7 g/dL (12.0-15.0); Immature Granulocytes Count 0.180 X10^3/uL (0.0-0.0); Mean Corp Hgb Conc 29.6 g/dL (32-36); Mean Corpuscular Volume 91.6 fL (81-99); Mean Platelet Vol. 8.7 fl (6.2-12.0); NRBC Flagged by Analyzer 0.3 % (0-5); POSITIVE MORPHOLOGY YES; Platelet Count 471 K/mm3 (150-450); RBC Distribution Width CV 19.8 % (11.6-14.6); RBC Distribution Width SD 65.8 fl (35.1-43.9); Red Blood Count 3.21 M/mm3 (4.2-5.4); White Blood Count 8.6 K/mm3 (4.4-11.0)
[2025-09-10 07:53] LABS: Differential Indicated SCAN CRITERIA MET
[2025-09-10 08:15] LABS: Anisocytosis 2+; Differential Comment SCANNED
[2025-09-10 08:32] LABS: Anion Gap 8 (5-15); BUN 15 mg/dL (4-19); BUN/Creat Ratio 16.6 RATIO (10-20); Calcium,Total 8.5 mg/dL (7.6-11.0); Carbon Dioxide 24.9 mmol/L (21.0-32.0); Chloride 109 mmol/L (98-108); Estimated Creatinine Clearance 65.06 ml/min (50-250); Glucose 110 mg/dL (70-99); Potassium 4.4 mmol/L (3.3-5.1)
[2025-09-10 09:49] VITALS: BP 139/69; PULSE 87; RESP 16; TEMP 36.6; O2SAT 96
[2025-09-10] MEDS: Aspirin E.C. 81 MG Tablet PO (10:15)
[2025-09-10] MEDS: Potassium Chloride Oral Tablet 20 MEQ PO (10:16)
--- NOTE | 2025-09-10 12:11 | PCM.PN.DRR ---
Documented by User: Jimmy Greenwood 09/10/25 13:46 TCU RX Drug Regimen Review Subjective/Objective Subjective/Objective Subjective: TCU Admission. 60 year old female hospitalized for intra-abdominal fluid collections high in amylase, lipase, triglycerides, pancreatic fistula ruled out by mrcp, treated with low fat diet, complicated by right hydronephrosis. Admitted to TCU with debility, here for rehabilitation, strengthening, prior to discharge home with . Objective: Allergies No Known Allergies Allergy (Verified 09/03/25 13:31) Current Medications Generic Name Dose Route Start Last Admin Trade Name Freq PRN Reason Stop Dose Admin Acetaminophen 1,000 mg 09/09/25 22:00 09/10/25 05:10 Acetaminophen 500 Mg Tablet PO 1,000 mg Q8 AMINATA Administration Amlodipine Besylate 10 mg 09/10/25 10:00 09/10/25 10:19 Amlodipine 10 Mg Tablet PO 10 mg DAILY AMINATA Administration Protocol Aspirin 81 mg 09/10/25 08:00 09/10/25 10:15 Aspirin E.C. 81 Mg Tablet PO 81 mg BREAKFAST AMINATA Administration Atorvastatin Calcium 40 mg 09/09/25 22:00 09/09/25 21:54 Atorvastatin Calcium 40 Mg Tablet PO 40 mg QHS AMINATA Administration Enoxaparin Sodium 40 mg 09/10/25 10:00 09/10/25 10:17 Enoxaparin 40 Mg/0.4 Ml Syringe SC 40 mg DAILY@0600 AMINATA Administration Furosemide 20 mg 09/09/25 17:51 Furosemide 20 Mg Tablet PO DAILY PRN Swelling Protocol Glipizide 20 mg 09/10/25 08:00 09/10/25 10:15 Glipizide Xl 5 Mg Tablet PO 20 mg BREAKFAST AMINATA Administration Glucagon 1 mg 09/09/25 17:51 Glucagon 1 Mg/Ml Syringe IM X1 PRN Hypoglycemia Protocol Hydrochlorothiazide 25 mg 09/10/25 10:00 09/10/25 10:17 Hydrochlorothiazide 25 Mg Tablet PO 25 mg DAILY AMINATA Administration Protocol Dextrose 250 mls @ 0 mls/hr 09/09/25 17:51 Dextrose 10%-Water IV .Q0M PRN HYPOGLYCEMIA Protocol As Directed Insulin Glargine 30 unit 09/09/25 22:00 09/09/25 21:54 Insulin Glargine-Yfgn 100 Unit/Ml Pen SC 30 unit QHS AMINATA Administration Levofloxacin 750 mg 09/10/25 10:00 09/10/25 10:17 Levofloxacin 750 Mg Tablet PO 09/27/25 10:01 750 mg DAILY AMINATA Administration Lisinopril 40 mg 09/10/25 10:00 09/10/25 10:19 Lisinopril 40 Mg Tablet PO 40 mg DAILY AMINATA Administration Protocol Octreotide Acetate 0.1 mg 09/09/25 22:00 09/10/25 05:10 Octreotide 0.1 Mg/Ml Ml SC 0.1 mg Q8 AMINATA Administration Ondansetron HCl 4 mg 09/09/25 17:51 Ondansetron Odt 4 Mg Tablet PO Q8H PRN nausea and vomiting Oxycodone HCl 5 mg 09/09/25 17:51 09/10/25 08:32 Oxycodone 5 Mg Tablet PO 09/14/25 17:52 5 mg Q4H PRN Administration severe pain (scale score 7-10) Polyethylene Glycol 17 gm 09/10/25 10:00 09/10/25 10:08 Polyethylene Glycol 3350 17 Gm Packet PO Not Given DAILY AMINATA Potassium Chloride 20 meq 09/10/25 08:00 09/10/25 10:16 Potassium Chloride Oral Tablet 20 Meq PO 20 meq DAILYCM AMINATA Administration Senna/Docusate Sodium 1 tablet 09/09/25 22:00 09/09/25 22:32 Senna/Docusate Sodium 1 Tablet PO Not Given QHS AMINATA Sodium Chloride 10 - 40 ml 09/09/25 18:39 09/10/25 05:15 0.9% Saline Lock 10 Ml Syringe IV 10 ml UD PRN Administration SALINE FLUSH Spironolactone 25 mg 09/10/25 10:00 09/10/25 10:16 Spironolactone 25 Mg Tablet PO 25 mg DAILY AMINATA Administration Protocol Tuberculin PPD 0.1 ml 09/17/25 10:00 Tuberculin,Purif.Prot.Deriv. 50 Tu/Ml Vial ID 09/17/25 10:01 X1 ONE Problem List Chronic heart failure with preserved ejection fraction (HFpEF) (Acute) Stroke (Acute) Intraabdominal fluid collection (Acute) Hypokalemia (Acute) Essential (primary) hypertension (Acute) Type 2 diabetes mellitus with hyperglycemia (Acute) Gastric ulcer (Acute) Debility (Acute) Hyperlipidemia (Chronic) Vital Signs Temp Pulse Resp BP Pulse Ox O2 Del Method O2 Flow Rate 97.9 F 87 16 139/69 H 96 Nasal Cannula 2 09/10/25 09:49 09/10/25 09:49 09/10/25 09:49 09/10/25 09:49 09/10/25 09:49 09/10/25 09:49 09/10/25 11:58 Oxygen Flow Rate (L/min) 2 Oxygen Delivery Method Nasal Cannula Weight: 80.286 kg Body Mass Index (BMI) 32.3 Sodium 142 mmol/L (133-145) 09/10/25 06:52 Potassium 4.4 mmol/L (3.3-5.1) 09/10/25 06:52 Chloride 109 mmol/L (98-108) H 09/10/25 06:52 Carbon Dioxide 24.9 mmol/L (21.0-32.0) 09/10/25 06:52 Anion Gap 8 (5-15) 09/10/25 06:52 BUN 15 mg/dL (4-19) 09/10/25 06:52 Creatinine 0.88 mg/dL (0.70-1.20) 09/10/25 06:52 Est GFR (MDRD) Non-Af 74 (>60) 09/10/25 06:52 BUN/Creatinine Ratio 16.6 RATIO (10-20) 09/10/25 06:52 Glucose 110 mg/dL (70-99) H 09/10/25 06:52 Assessment/Plan: 1. Pain - Tylenol 1000mg PO Q8H, Oxycodone 5mg Q4H PRN (pain 7-10) (3 PRN doses used at this time). Monitor pain scores before/after PRN administration for response, PRN pain medication usage, symptoms of pain/resident distress and ability to participate in therapy. Last AST/ALT: 16/ (09/03). Check LFTs if resident develops symptoms of hepatoxicity. Consider monitoring LFTs if patient using > 3 gm/day of acetaminophen for prolonged period. Do not exceed 4000 mg in 24 hours. Monitor for constipation, respiratory depression (current RR range: 16-18), falls and sedation/delirium. 2. Bowel - senna/colace 1 tablet PO QHS, Miralax 17gm PO daily. Last document bowel movement: 09/09/25. Monitor for abdominal pain, frequency of bowel movements, diarrhea. Recommend holding bowel regimen if resident develops diarrhea. 3. DVT prophylaxis - Lovenox 40mg SC daily. Monitor for symptoms of VTE (new onset leg pain, swelling, erythema, SOB, chest pain, hypoxia) and bleeding. 4. Right hydronephrosis - order renal ultrasound, consider urology consultation. 5. HTN - Lisinopril 40mg PO daily, HCTZ 25mg PO daily, Amlodipine 10mg PO daily. BP range since admission = 137/76 - 139/69, HR range since admission 87-98. BP control appropriate at this time. Monitor blood pressure, heart rate, symptoms of orthostasis, dizziness. Consider checking orthostatic blood pressure and implementing fall precautions with any indication of orthostatic hypotension. Monitor for cough and symptoms of angioedema. Monitor for development of peripheral edema. 6. Stroke - Aspirin 81mg PO daily. Monitor for GI upset, symptoms of bleeding (including melena, hemoptysis, hematuria, epistaxis, new-onset headache), hemoglobin (last Hgb = 8.7 (09/10/25)) and allergic reactions. 7. Hyperlipidemia - Atorvastatin 40mg PO QHS. Last FLP = 09/02/25: LDL: 35, HDL: 21, TC: 98, T. LDL at goal at last check for patient. Monitor for headache, nausea, diarrhea, new muscle pain/cramping or weakness. Consider CPK if myopathy/rhabdomyolysis suspected. Monitor AST/ALT (last = 16/ (09/03)) if symptoms suggestive of hepatoxicity. 8. Chronic HFpEF - Aldactone 25mg PO daily, Furosemide 20mg PO daily PRN (edema). Last echo EF: Not recorded. BP range since admission = 137/76 - 139/69, HR range since admission 87-98. Heart failure regimen could potentially be optimized with guideline-directed medical therapy. Consider adding empagliflozin 10 mg PO daily to the medication regimen as it is GDMT for HFpEF. Monitor volume status (weight, lower extremity edema, JVD, lung examination) and for symptoms of exacerbation (SOB, dyspnea on exertion, orthopnea, edema, fatigue, wet cough or frothy/pink mucous). Monitor renal function (SCr = 0.88 (09/10)), magnesium (last Mg= No Mg level recorded), calcium (last Ca = 8.5 (09/10)) and sodium (last Na = 142 (09/10)). Monitor volume status and symptoms of orthostasis. 9. Diabetes Mellitus II - Glipizide 20mg PO QAM, Glargine 30 units QHS, Glucagon 1mg IM x 1 PRN (low blood sugar) (Resident has not used any PRN doses at this time). Last A1c: 7.3 (09/02). Blood glucose last 24 hr: 108-216. Please monitor blood sugar levels, signs/symptoms of hypoglycemia, headache, increased thirst/hunger, and weight gain. 10. Retroperitoneal abscess - Levaquin 750mg PO daily thru 09/27/2025, CT A/P in 2 weeks, f/u general surgery. Please monitor for abdominal pain, diarrhea, changes in vision, and insomnia. Black Box Warning with a listed adverse effect of tendon rupture and tendonitis. 11. Pancreatic fluid collection - Octreotide 0.1mg SC Q8H, monitor drain outputs closely, CT A/P in 2 weeks, f/u general surgery. Please monitor for muscle/joint pain, constipation, fatigue and edema. 12. Nausea - Zofran 4mg PO Q8H PRN (Resident has not used any PRN doses at this time). Please monitor PRN medication use and drowsiness/fatigue after and doses given. 13. Hypokalemia - KCL 20meq PO daily. Serum potassium = 4.4. Monitor serum potassium, nausea/stomach upset, symptoms of hypokalemia include muscle cramping. Assessment/Plan for indications treated with psychotropic medications: Resident is not prescribed scheduled or prn psychotropic medications at the time of this drug regimen review. Medical chart and medication regimen reviewed. The following medication irregularities or issues were identified: - Please consider ordering a magnesium level with labs as the patient is on multiple diuretic medications. - Please consider adding empagliflozin 10 mg tablet PO daily to the current HFpEF regimen. Date Date of Note: 09/10/25 Documented by User: Dr. Ben Eller MD 09/10/25 15:56 TCU RX Drug Regimen Review Provider Comments Provider responsibility Provider Comments to Recommendations by Pharmacy Agree
[2025-09-10] MEDS: Tuberculin,Purif.prot.deriv. 50 TU/ML Vial 0.1 ML ID (13:07)
--- NOTE | 2025-09-10 14:46 | CHAPLAIN ---
Type of Pastoral Visit _x__ Initial Visit ___ Follow-up Visit ___ On-call Visit ___ General Patient Visit ___ Spiritual Assessment ___ Family Conference ___ Bereavement ___ Rapid Response ___ Code Blue ___ Other (describe below) Pastoral Care Referral From _x__ Patient _x__ Family ___ Nurse ___ Physician ___ Sharemilker ___ Manager Portable ___ Other (describe below) Sacrament/Intervention _x__ Active listening ___ Anointing ___ Adventism ___ Bereavement ___ Communion ___ Jill exploration ___ ___ Life review _x__ Prayer ___ Reconciliation ___ Sacrament of Sick _x__ Supportive presence ___ Wedding ___ Other (describe below) Pastoral Comments patient was seen last week in TCU; pt left to be evaluated at another hospital and has now returned for more therapy and recovery; pt talks about being back in TCU and is grateful for the situation; spouse also indicates thankfulness for the situation and the many prayers and active support they have from the community, family, and yazidism; pt welcomes prayer
--- NOTE | 2025-09-10 14:55 | WOUNDNOTE ---
wound photo: lower abdomen
--- NOTE | 2025-09-10 14:56 | WOUNDNOTE ---
wound photo: abdomen
[2025-09-10] MEDS: Insulin Glargine-YFGN 100 UNIT/ML Pen 30 UNIT SC (22:02)
[2025-09-11] MEDS: Octreotide 0.1 MG/ML ML SC ×3 (05:58→20:00)
[2025-09-11] MEDS: 0.9% Saline Lock 10 ML Syringe IV ×2 (05:59→22:20)
[2025-09-11 08:25] LABS: Magnesium 1.8 mg/dL (1.5-2.2)
[2025-09-11] MEDS: Aspirin E.C. 81 MG Tablet PO (10:02)
[2025-09-11] MEDS: Potassium Chloride Oral Tablet 20 MEQ PO (10:03)
[2025-09-11 10:12] VITALS: BP 128/66; PULSE 84; RESP 18; TEMP 36.4; O2SAT 99
[2025-09-11 13:50] VITALS: PULSE 84; RESP 18; O2SAT 99
--- NOTE | 2025-09-11 13:52 | US_ITS ---
PROCEDURE: PELVIC (NON ) 09/11/2025 REASON FOR EXAM: POST MENOPAUSAL VAGINAL BLEEDING. TECHNIQUE: Procedure Code: USPEL Modality: US Procedure: PELVIC (NON ) COMPARISON: August 04, 2025 FINDINGS: Transabdominal scanning was performed. Patient declined transvaginal sonography. Measurements: Uterus: 10.1 x 6.4 x 4.5 cm Endometrial Thickness: 5 mm. Right Ovary: Obscured by bowel gas. Left Ovary: Obscured by bowel gas Uterus: The echotexture of the uterus is mildly heterogeneous. A nearly isoechoic mass is seen involving the body and fundus measuring 3.9 x 3.4 x 3.1 cm. The fibroid abuts the endometrium. Endometrium: Homogeneous Right ovary: Not seen. No adnexal mass. Left ovary: Not seen. No adnexal mass. Other: Urinary bladder is unremarkable. US/Pelvic (Non ) IMPRESSION: 1. Uterine fibroid with dimensions above. The fibroid is primarily myometrial but abuts the endometrium. A submucosal component is not excluded. Endometrium is 5 mm in thickness. Reading Location: [id number]
--- NOTE | 2025-09-11 13:55 | NURSING ---
Addendum entered by Ludwin Weber 09/11/25 14:36: EXPLANED TESTING TO PT AND . STATED LETS JUST WAIT A FEW HOURS TO SEE IF SHE IS STILL BLEEDING AND NOT JUMP TO CONCLUSIONS AND GO FROM THERE. PLUS I WANT TO CALL MY DAUGHTER AND TALK TO HER. THIS NURSE STATED SHE WOULD COME BACK LATER. RN UPDATED. Original Note: THIS NURSE AND ISAAC MCLEOD IN ROOM TO CHANGE PT AND FOUND PT WAS BLEEDING FROM HER VAGINA. NOTIFIED,N.O FOR PELVIC ULTRA SOUND.
--- NOTE | 2025-09-11 14:12 | NURSING ---
THIS NURSE DID PT ASSESSMENT AND FOUND THAT PT RT EYE IN CORNER IS BLOOD SHOT. ASKED PT AND WHAT HAPPENED. BOTH STATED THAT THE REDNESS STARTED YESTERDAY BUT TODAY IS WORSE. NOTIFIED.
--- NOTE | 2025-09-11 16:13 | NURSING ---
PT AND AGREEABLE TO THE TESTS OF PELVIC AND TRANSVAGINAL.
[2025-09-11] MEDS: Insulin Glargine-YFGN 100 UNIT/ML Pen 10 UNIT SC (22:20)
[2025-09-12] MEDS: Octreotide 0.1 MG/ML ML SC ×3 (06:02→20:28)
[2025-09-12] MEDS: 0.9% Saline Lock 10 ML Syringe IV ×4 (06:03→20:28)
--- NOTE | 2025-09-12 08:40 | NURSING ---
PELVIC ULTRA SOUND RESULTS IN. NOTIFIED . PT REFUSED TRANSVAGINAL SONOGRAPHY YESTERDAY STILL EVEN AFTER THIS NURSE EDUCATED PT AND . PER ORDERS FROM [place],SCHEDULE A APPOINTMENT WITH [facility] BUT DO NOT CONSULT CASEWORKER INTAKE. RN AWARE
[2025-09-12] MEDS: Potassium Chloride Oral Tablet 20 MEQ PO (10:25)
[2025-09-12] MEDS: Aspirin E.C. 81 MG Tablet PO (10:26)
--- NOTE | 2025-09-12 11:19 | US_ITS ---
PROCEDURE: TRANSVAGINAL NON- 09/12/2025 REASON FOR EXAM: BLEEDING TECHNIQUE: Procedure Code: USTVAG Modality: US Procedure: TRANSVAGINAL NON- COMPARISON: 11 September 2025. FINDINGS: Uterus: The uterus measures 9.9 x 7.4 cm. Heterogenous appearance without evidence of discrete cyst, or echogenic calculi. Anterior, serosal fibroids measuring 1.5 x 1.5 cm, 0.9 x 0.7 cm and 2.7 x 2.7 cm. The endometrial stripe measures 6 mm and contains trace fluid. Multiple simple nabothian cysts visualized in the cervix. Right ovary: The right ovary was not visualized. Left ovary: The left ovary was not visualized. No ascites. US/Transvaginal Non- IMPRESSION: 1. Fibroid uterus. 2. Nonvisualization of the bilateral ovaries. 3. Trace fluid in the endometrium. Reading Location: [id number]
--- NOTE | 2025-09-12 11:42 | NURSING ---
PT BLEEDING MODERATE FROM VAGINA, EDUCATED PT AND FAMILY ON THE SERIOUSNESS OF BLEEDING FROM VAGINA. PT AND FAMILY AGREED TO TRANSVAGINAL SONOGRAPHY. NOTIFIED OF MODERATE BLEEDING FROM VAGINA. NEW ORDER FOR TRANSVAGINAL SONOGRAPHY, HOLD LOVENOX AND ASPIRIN. NEW ORDER FOR IV TRANEXAMIC ACID. FAMILY AND PT UPDATED ON NEW ORDERS. RN AWARE.
[2025-09-12] MEDS: TRANEXAMIC ACID 1,000 MG in 0.9% Normal Saline (100mL Bag) 100 ML 440 MG IV (13:19)
[2025-09-12] MEDS: 0.9% Normal Saline (250mL Bag) 250 ML 15 ML IV (13:24)
--- NOTE | 2025-09-12 13:30 | NURSING ---
RESULTS FROM TRANSVAGINAL, NOTIFIED. NO NEW ORDERS, PER STICK WITH PREVIOUS ORDERS. FAMILY AND PT UPDATED.RN AWARE
--- NOTE | 2025-09-12 19:33 | NURSING ---
UPDATED ON VAG BLEEDING AFTER IV TRANEXAMIC ACID PER HIS REQUEST. PER RECHECK PT AND CALL HIM AT 10PM IF ANY BLEEDING. NO BLEEDING DON'T CALL. PT AND FAMILY UPDATED.
[2025-09-12] MEDS: Insulin Glargine-YFGN 100 UNIT/ML Pen 10 UNIT SC (20:24)
[2025-09-12 22:10] VITALS: PULSE 80; RESP 18; O2SAT 98
[2025-09-13 03:35] VITALS: PULSE 85; RESP 18; O2SAT 99
[2025-09-13] MEDS: 0.9% Saline Lock 10 ML Syringe IV ×3 (05:37→22:44)
[2025-09-13] MEDS: Octreotide 0.1 MG/ML ML SC ×3 (05:38→22:41)
[2025-09-13 07:30] VITALS: O2SAT 98
[2025-09-13] MEDS: Potassium Chloride Oral Tablet 20 MEQ PO (09:33)
[2025-09-13 09:42] VITALS: BP 142/65; PULSE 82; RESP 16; TEMP 36.3; O2SAT 93
--- NOTE | 2025-09-13 10:33 | NURSING ---
GOT PT UP IN RECLINER X2 ASSIST AT 10AM, PT DID WELL. IN ROOM. PT STILL COMPLAINING OF PAIN 8/10 AND ASKING FOR PAIN MEDS BEFORE DUE. AND PAIN STILL AN 8. TALKED TO FAMILY ABOUT TRYING GABAPENTIN AND EDUCATED PT AND . PT AND STATED THEY WERE WILLING TO TRY. NEW ORDER FOR GABAPENTIN 100MG TWICE A DAY. RN AWARE
--- NOTE | 2025-09-13 12:15 | NURSING ---
pt attempting to eat tomato soup and begin coughing per in room and had small emesis of undigested crackers and soup. pt had just received new medication approx 1 hour prior ( neurontin) for neuropathy. pt states she feels a lot of phlegm in throat and thinks that is what also may have contributed to emesis. denies upset stomach. ice/lemon icey given. pt going to lay off acidic soup and eat chicken noodle for now. ordered from kitchen. call light in reach. up in recliner chair.
--- NOTE | 2025-09-13 13:29 | NURSING ---
GOT PT BACK TO BED AT 1400 X2 ASSIST. PT ALSO WAS UP TO BEDSIDE COMMODE TWICE. PT DID WELL. NO SIGNS OF BLEEDING AT THIS TIME.
[2025-09-13] MEDS: Insulin Glargine-YFGN 100 UNIT/ML Pen 10 UNIT SC (22:43)
[2025-09-14 05:48] LABS: Hematocrit 29.8 % (37-47); Hemoglobin 8.8 g/dL (12.0-15.0); Mean Corp Hgb Conc 29.5 g/dL (32-36); Mean Corpuscular Volume 89.5 fL (81-99); Mean Platelet Vol. 8.4 fl (6.2-12.0); POSITIVE COUNT YES; POSITIVE DIFFERENTIAL YES; POSITIVE MORPHOLOGY YES; Platelet Count 410 K/mm3 (150-450); RBC Distribution Width CV 19.6 % (11.6-14.6); RBC Distribution Width SD 62.7 fl (35.1-43.9); Red Blood Count 3.33 M/mm3 (4.2-5.4); White Blood Count 9.6 K/mm3 (4.4-11.0)
[2025-09-14 05:51] LABS: Differential Indicated MANUAL DIFF
[2025-09-14] MEDS: 0.9% Saline Lock 10 ML Syringe IV ×3 (06:02→22:33)
[2025-09-14] MEDS: Octreotide 0.1 MG/ML ML SC ×3 (06:02→22:32)
[2025-09-14 07:36] LABS: Neutrophil-Band 4 % (0-5); Neutrophil-Segmented 57 % (47-70); Red Cell Morphology NORM C+C NORMAL (NORM C&C); Total Cells Counted 100 (MANUAL DIFF)
--- NOTE | 2025-09-14 09:02 | NURSING ---
Addendum entered by Valentine Torres 09/14/25 09:52: Updated Dr. Eller. Also let him know resident had bright red blood in bedpan per bung dropper. Order to hold aspirin and add consult for Dr. Amado. Original Note: Called [facility], asked about appt today. Staff member Anya asked the physician and said Dr. Amado would come by and see her around 10:00. Updated resident. She was hesitant and asked if it was necessary. Discussed importance of allowing exam as she's had bleeding. She agreed.
[2025-09-14] MEDS: Potassium Chloride Oral Tablet 20 MEQ PO (09:36)
[2025-09-14 09:45] VITALS: BP 136/79; PULSE 94; RESP 17; TEMP 36.2; O2SAT 91
[2025-09-14 09:57] VITALS: O2SAT 91
--- NOTE | 2025-09-14 10:15 | NURSING ---
at bedside performing a pelvic exam, daughter present at bedside as well.
--- NOTE | 2025-09-14 10:30 | EMB_PTH ---
PATIENT: MERARY ONTIVEROS LOC: [facility] U#:[id number] AGE/SX: 60/F ROOM: [facility] RE09/09/[address]: Dr. Ben Eller MD : [id number] BED: 1 DIS: 09/29/2025 SPEC #: [id number] RECD: 09/14/25 10:47 STATUS: CHEL[place] REKalpesh #: [id number] AMI: 09/14/25 10:[address]: Otilia Amado DEPT: SURGICAL PATHOLOGY RECD BY: Quentin Ryan ENTERED: 09/14/25 11:35 SP TYPE: ENDOM BX/C OTHR DR: MD Danay Philip Chi, MD Tissues: A - Endometrium, NOS Procedures: Surgery Specimen Level IV HEADER OPERATION: Endometrial biopsy PRE-OP DIAGNOSIS: Post menopausal bleeding TISSUE SUBMITTED: A- Endometrial tissue MICROSCOPIC DIAGNOSIS A. Endometrium, biopsy: - Proliferative endometrium with shedding stroma. - Benign endocervical mucosal polyp (multiple small fragments). MICROSCOPIC DESCRIPTION Slides are reviewed. GROSS DESCRIPTION A. Received in formalin labeled the patient's name and date of is a 2.8 x 2.0 x 0.2 cm aggregate of blood-tinged mucoid material, clotted blood and flecks of possible tissue. Entirely submitted in 1 cassette. IL 09/14/2025 CPT:64277
--- NOTE | 2025-09-14 11:48 | NURSING ---
Offered covid vaccine, VIS provided. Resident declines.
--- NOTE | 2025-09-14 13:46 | NURSING ---
Back Gray Cloth Washer Note; Activity Asset: Complete Anjali has returned to TCU after brief stay in hospital and remains independent in her choice of daily activities. Her family is hers daily and bring her items from home. She will read and her parking attendant visits and welcomes the Marking Devices Assembler and therapy dog when avaliable. Staff will remind her of weekly activities and respect her right to say no.
--- NOTE | 2025-09-14 14:48 | WOUNDNOTE ---
wound photo: lower abdomen
--- NOTE | 2025-09-14 17:23 | CON.PCM.OB_ITS ---
Assessment & Plan (1) Postmenopausal bleeding: COMMENT: pap, emb done PLAN: Plan revewied ultrasound, await pap and emb pathology to make recommendations for further workup. will follow peripherally until results are available,. HPI Consult Data Date of Consult: 09/14/25 HPI Narrative HPI Narrative: MERARY ONTIVEROS, is a 60 F who presents with episode of postmenopausal bleeding while admitted to the hospital for bowel perforation. she dneie sany pelvic pain or cramping, no discharge, bleeding started several days ago. [facility] Medical History (Updated 09/14/25 @ 17:[address] Otilia Amado MD) VRE (vancomycin resistant enterococcus) culture positive Hemiparesis affecting left side as late effect of cerebrovascular accident Hypokalemia Essential (primary) hypertension Type 2 diabetes mellitus with hyperglycemia Retroperitoneal abscess Acute blood loss anemia Debility Leg wound, right Home Medications Medication Instructions Recorded Last Taken Type amlodipine 10 mg tablet 10 mg PO DAILY blood pressur e 08/26/19 09/09/25 08:50 History lisinopril 40 mg tablet 40 mg PO DAILY blood pressur e 08/22/21 Unknown History aspirin 81 mg tablet,delayed 81 mg PO DAILY heart heal th 08/03/25 09/09/25 08:40 History release (Adult Aspirin Regimen) atorvastatin 40 mg tablet 40 mg PO QHS cholesterol 09/08/25 21:45 History furosemide 20 mg tablet 20 mg PO DAILY PRN swelling 08/03/25 Unknown History hydrochlorothiazide 25 mg tablet 25 mg PO DAILY blood 08/03/25 09/09/25 08:40 History pressure/water pill insulin glargine 100 unit/mL (3 30 unit subcut QHS brittanie betes 08/03/25 Unknown History mL) subcutaneous pen (Lantus Solostar U-100 Insulin) potassium chloride 20 mEq 20 meq PO DAILY supplement 0 08/03/25 Unknown History tablet,extended release(part/cryst) spironolactone 25 mg tablet 25 mg PO DAILY water pill 08/03/25 09/09/25 08:40 History acetaminophen 325 mg tablet 650 mg PO Q6H inflammation /pain 08/31/25 09/09/25 12:45 History glipizide 10 mg tablet, extended 20 mg PO DAILY diabet es 08/31/25 Unknown History release 24 hr levofloxacin 750 mg tablet 750 mg PO DAILY infection 1 09/09/25 08:40 History ondansetron 4 mg disintegrating 4 mg PO Q8H PRN nausea and vomiting 08/31/25 Unknown History tablet oxycodone 5 mg tablet 5 mg PO Q4H PRN severe pain (scale 08/31/25 09/09/25 12:40 History score 7-10) octreotide acetate 100 mcg/mL 100 mcg subcut Q8H Ask y our 09/09/25 09/09/25 12:40 History injection solution (Sandostatin) primary Doctor polyethylene glycol 3350 17 17 g PO DAILY Constipation 09/09/25 Unknown History gram/dose oral powder sennosides 8.6 mg-docusate sodium 1 tab-cap PO QHS Con stipation 09/09/25 Unknown History 50 mg capsule (Senna Plus) Allergy/AdvReac Type Severity Reaction Status Date / Time No Known Allergies Allergy Verified 09/03/25 13:31 Family History Mother Colon cancer Surgical History History of laparotomy History of delivery Social History household members: spouse housing: house Smoking Status: Never smoker alcohol intake: never what type of physical activity do you participate in: none do you feel safe at home: Yes Vital Signs Vital Signs Vital Signs: 09/14/25 09:45 09/14/25 09:57 Temperature 97.2 F L Temperature Source Temporal Pulse Rate 94 Respiratory Rate 17 Blood Pressure 136/79 H Blood Pressure Mean 98 Blood Pressure Source Monitor Blood Pressure Position Semi-Fowlers Blood Pressure Location Right Arm Pulse Ox 91 91 Oxygen Delivery Method Room Air Room Air Weight Weight: 177 lb 0.005 oz Body Mass Index (BMI) 32.3 ROS Constitutional Constitutional: Reports weakness; Denies chills, fever(s) or weight gain ENT HEENT: Denies headache(s), nasal congestion or nasal discharge Cardiovascular Cardiovascular: Denies chest pain or palpitations Respiratory/Chest Respiratory/Chest: Denies cough, excessive phlegm production or shortness of breath with exertion Gastrointestinal Gastrointestinal: Denies abdominal pain, nausea or vomiting Genitourinary Genitourinary: Denies dysuria Musculoskeletal Musculoskeletal: Denies joint pain or joint swelling Integumentary Integumentary: Denies rash or wounds Neurologic Neurologic: Denies focal weakness, numbness or tingling Psychiatric Psychiatric: Denies anxiety, auditory hallucinations, depression, homicidal ideation or suicidal ideation Physical Exam Const alert General Appearance: cooperative HEENT normocephalic Eyes EOMs intact bilaterally Resp normal respiratory effort, normal air movement and clear to auscultation bilaterally Cardio regular rate and regular rhythm GI normal to inspection, nondistended, normoactive bowel sounds, non-tender and non-distended GI Narrative: Midline incision healed, 2 ARNOL drains left abdomen, draining watery norman liquid. Narrative: no cervical lesions blood coming from os, emb done by inserting pipelle into uterus after cleansing with betadine. pap done. Extremity General Extremity: Negative for edema Skin no rashes or lesions noted General Skin Exam: no breakdown Psych affect normal Appearance: appropriate Lab / Micro Data 09/14/25 05:05 09/10/25 06:52 Labs: Laboratory Results - last 24 hr 09/13/25 17:03: POC Glucose 154 H 09/13/25 21:18: POC Glucose 146 H 09/14/25 05:05: WBC 9.6, RBC 3.33 L, Hgb 8.8 L, Hct 29.8 L, MCV 89.5, MCH 26.4 L , MCHC 29.5 L, RDW Std Deviation 62.7 H, RDW Coeff of Ector 19.6 H, Plt Count 410, MPV 8.4, Neut % (Auto) Not Reportable, Absolute Neuts (auto) 5.8, Absolute Lymphs (auto) 2.00, Total Counted 100, Neutrophils % (Manual) 57, Band Neutrophils % 4, Lymphocytes % (Manual) 21, Monocytes % (Manual) 9, Eosinophils % (Manual) 4, Metamyelocytes % 4 H, Promyelocytes % 1 H, Differential Comment COMMENT, Diff Path Review Reviewed, Platelet Estimate ADEQUATE, RBC Morphology NORM C+C 09/14/25 06:28: POC Glucose 119 H 09/14/25 11:37: POC Glucose 156 H Charges/Coding Multi Select Codes Visit Charges Office Visit/Consults: 91365 OV L3 New 30 min Urinary/Genital Urinary/Genital CPT Codes: Other Procedure See Report ([id number])
[2025-09-14 20:15] VITALS: PULSE 103; O2SAT 94
[2025-09-14] MEDS: Insulin Glargine-YFGN 100 UNIT/ML Pen 10 UNIT SC (22:32)
[2025-09-15] MEDS: Octreotide 0.1 MG/ML ML SC ×3 (06:15→21:03)
[2025-09-15] MEDS: 0.9% Saline Lock 10 ML Syringe IV ×3 (06:15→21:04)
[2025-09-15 08:30] VITALS: BP 146/71; PULSE 84; RESP 16; O2SAT 93
[2025-09-15] MEDS: Potassium Chloride Oral Tablet 20 MEQ PO (09:19)
[2025-09-15] MEDS: Insulin Glargine-YFGN 100 UNIT/ML Pen 10 UNIT SC (21:03)
--- NOTE | 2025-09-15 21:17 | NURSING ---
Pt complaining of 8 of 10 back pain despite scheduled Tylenol, repositioning, and kpad. Pt requesting something stronger for pain. Notified Dr. Eller via secure text message. Spoke with Dr. Eller via telephone. New order for oxy 5 mg PO q4H PRN for pain score 6-10. Orders verified via readback.
--- NOTE | 2025-09-15 23:16 | NURSING ---
BID dressing change to abdomen completed at 2100 per order. Wound bed appears reddened with scant amount of serosanguineous drainage. Pt tolerated procedure well. Denies needs for further assistance. Call light and personal belongings within reach
[2025-09-16] MEDS: Octreotide 0.1 MG/ML ML SC ×3 (05:15→22:01)
[2025-09-16] MEDS: 0.9% Saline Lock 10 ML Syringe IV ×3 (05:16→22:01)
[2025-09-16 08:04] VITALS: BP 128/66; PULSE 95; RESP 16; TEMP 36.8; O2SAT 90
[2025-09-16] MEDS: Potassium Chloride Oral Tablet 20 MEQ PO (08:12)
--- NOTE | 2025-09-16 08:28 | NURSING ---
Grinder Gear Note; MDS for 09/16/2025 Complete
--- NOTE | 2025-09-16 10:39 | CASEMGMT ---
Social Work IDT met with patient and sister at bedside, then participated via conference call for care plan meeting. Discussed patient's progress in PT/OT/SN/RDN. Pt is [facility] and is in contact with [facility] Liaison for ongoing payment. Pt needs to improve more physically to return home and have care from dtr and . SW will assist with DC planning. Will continue to follow. Kim Bazan PAINT AND TABLE EDGER CHUTE GREASER
--- NOTE | 2025-09-16 11:41 | CASEMGMT ---
BIMS () and PHQ9 (6) interviews completed on this date for MDS. SW spoke with pt regarding positive answers on the depression screen. PT sites her new illness, need for TCU, pain and being away from home as reasons for feeling down. Pt also discussing that she is deciding between longterm ECF and returning home and this also affects pt mood. PT does state that her christa, uatsdin family, friends and person family are supportive and this that help her in coping with feelings. PT states that she realizes that it is helpful to talk about her feelings and identifies people she can talk to when she is feeling down. SW will remain available to assist pt with emotional regulation as needed. FRANKY Mercado
[2025-09-16] MEDS: Insulin Glargine-YFGN 100 UNIT/ML Pen 10 UNIT SC (22:00)
--- NOTE | 2025-09-16 23:43 | NURSING ---
Dressing change to abdomen completed at 194 per order. Scant amount of serous drainage noted. Pt tolerated well.
[2025-09-17 05:57] LABS: Hematocrit 28.9 % (37-47); Hemoglobin 8.8 g/dL (12.0-15.0); Mean Corp Hgb Conc 30.4 g/dL (32-36); Mean Corpuscular Volume 89.8 fL (81-99); Mean Platelet Vol. 8.5 fl (6.2-12.0); POSITIVE COUNT YES; POSITIVE MORPHOLOGY YES; Platelet Count 337 K/mm3 (150-450); RBC Distribution Width CV 19.9 % (11.6-14.6); RBC Distribution Width SD 64.0 fl (35.1-43.9); Red Blood Count 3.22 M/mm3 (4.2-5.4); White Blood Count 10.1 K/mm3 (4.4-11.0)
[2025-09-17] MEDS: Octreotide 0.1 MG/ML ML SC ×3 (06:38→22:20)
[2025-09-17] MEDS: 0.9% Saline Lock 10 ML Syringe IV ×2 (06:38→22:20)
[2025-09-17 06:53] LABS: Anion Gap 10 (5-15); BUN 40 mg/dL (4-19); BUN/Creat Ratio 44.8 RATIO (10-20); Calcium,Total 8.8 mg/dL (7.6-11.0); Carbon Dioxide 24.3 mmol/L (21.0-32.0); Chloride 108 mmol/L (98-108); Estimated Creatinine Clearance 65.06 ml/min (50-250); Glucose 179 mg/dL (70-99); Potassium 4.6 mmol/L (3.3-5.1)
[2025-09-17 07:06] LABS: Neutrophil-Segmented 57 % (47-70); Nucleated Red Bld Cells,Manual 1 % (0-5); Reactive Lymphocyte 1+; Total Cells Counted 100 (MANUAL DIFF)
[2025-09-17 07:09] LABS: Schistocytes RARE
[2025-09-17 07:10] LABS: Polychromasia RARE
[2025-09-17 07:11] LABS: Differential Comment SCANNED
[2025-09-17 07:12] LABS: Differential Indicated MANUAL DIFF
[2025-09-17] MEDS: Potassium Chloride Oral Tablet 20 MEQ PO (07:51)
[2025-09-17 09:21] VITALS: BP 140/72; PULSE 92; RESP 18; TEMP 36.8; O2SAT 92
--- NOTE | 2025-09-17 09:57 | NURSING ---
Addendum entered by Valentine Torres 09/18/25 14:57: saying the funds won't cover the transport. He asked about doing virtual appointment. RN called and left message with office, asking to schedule virtual. Await return call. Original Note: Spoke with resident and about f/u appt with surgeon on 09/22/25. Let them know this nurse had talked to Dania about the financial side and it was all good to go. very hesitant and asked multiple times about WC transport, noting it would be cheaper. RN stressed importance of resident's comfort and safety with a cot. Also noted physician needs to be able to do exam on abdomen, will not be able to move her out of WC in the office. said he'd talk to Dania and let this nurse know. After spoke with Dania, he came to nurse's station and agreed to cot transport. He asked if a van could be sent instead of a "box truck." Transport set up, and [facility]. Cot pickup at 0915 for appt at [facility] on 09/22/25 @1115.
[2025-09-17] MEDS: Tuberculin,Purif.prot.deriv. 50 TU/ML Vial 0.1 ML ID (10:34)
[2025-09-17] MEDS: Insulin Glargine-YFGN 100 UNIT/ML Pen 10 UNIT SC (22:20)
--- NOTE | 2025-09-17 22:35 | NURSING ---
Wound care performed as ordered to midline abdominal surgical site. No drainage observed on old dressing.
[2025-09-18] MEDS: Octreotide 0.1 MG/ML ML SC ×3 (06:02→22:03)
[2025-09-18] MEDS: 0.9% Saline Lock 10 ML Syringe IV ×3 (06:03→22:04)
--- NOTE | 2025-09-18 07:50 | NURSING ---
Written communication left for Dr. Eller regarding sutures detaching from left upper drain site and green purulent drainage surrounding the site. Verbal order by Dr. Eller to remove remaining sutures to site.
--- NOTE | 2025-09-18 08:33 | MDS.RN ---
Information for the MDS was obtained from review of the clinical record, interview of resident, staff, and direct observation of resident’s care.
[2025-09-18] MEDS: Potassium Chloride Oral Tablet 20 MEQ PO (08:49)
[2025-09-18 16:00] VITALS: BP 106/65; PULSE 100; RESP 16; TEMP 36.6; O2SAT 91
[2025-09-18] MEDS: Insulin Glargine-YFGN 100 UNIT/ML Pen 10 UNIT SC (22:03)
[2025-09-19] MEDS: 0.9% Saline Lock 10 ML Syringe IV ×2 (05:55→22:18)
[2025-09-19] MEDS: Octreotide 0.1 MG/ML ML SC ×3 (05:55→22:17)
[2025-09-19] MEDS: Potassium Chloride Oral Tablet 20 MEQ PO (08:16)
[2025-09-19 08:19] VITALS: BP 120/79; PULSE 94; RESP 19; TEMP 36.2; O2SAT 93
--- NOTE | 2025-09-19 08:22 | NURSING ---
After pt took medication she vomited up 60cc of white liquid containing two pills. Pt had just finished eating milk and cereal. No c/o of nausea at this time. in room visiting.
--- NOTE | 2025-09-19 10:43 | NURSING ---
Pt's LUQ ARNOL drain appears to be draining more around the ARNOL site and appears to be dislodged. Dr. Eller updated N.O. received to consult general surgery and change the CT scan to be done today instead of Sunday. Secure message sent to Dr. Montes De Oca who will be up to see pt today.
--- NOTE | 2025-09-19 15:23 | EX.PCM.CON.S ---
Assessment & Plan Assessment/Plan (1) Intraabdominal fluid collection: PLAN: Plan The patient is a 60-year-old female with 2 retroperitoneal abscesses. The source of the abscesses are uncertain. [address] She underwent surgery about several weeks ago through [facility]. As requested, surgical consult was obtained to resecure the left lower quadrant drain. This was successfully performed. Both drains were flushed appropriately. Will recommend deferral of drain management to her surgeons. She has to follow-up virtually next week. I suspect these drains may need to be repositioned but will defer that decision to her treating surgeons. Please contact us if any further assistance is necessary HPI Consult Data Date of Consult: 09/19/25 HPI Narrative Reason for Consultation: Evaluate drain HPI Narrative: MERARY ONTIVEROS, is a 60 F who is currently admitted to TCU at [facility]. Patient was recently hospitalized about 7 weeks ago. She initially was found to have retroperitoneal abscesses. The source of these abscess was uncertain. It was thought that this was either coming from the sigmoid colones or potentially duodenum. Patient was subsequently transferred to [facility] per patient's . She underwent exploratory surgery and no identifiable source for abscess was noted. Drains were were placed. 1 was placed during surgery and another was placed as a CT-guided drain placement in the left lower quadrant of the abdomen/pelvis. She is scheduled to follow-up with her surgeon next week to reevaluate her abscesses. There was 1 larger central abscess measuring 8 to 10 cm and another longer but more thinner abscess in the left lower quadrant. Again 2 drains have been placed. The central abscess drain really has not been putting out much output. More output has been coming from the left lateral drain. It was noted by nursing this morning that her left drain in the left lower quadrant was no longer attached to the skin and there was concern for dislodgment. CT was ordered and a surgical consultation was obtained. Repeat CT scan shows that the central abscess is certainly still present albeit slightly smaller. It appears that the left lower quadrant abscess is slightly larger. It also appears that the left lower quadrant drain may have retracted a few centimeters. Surgical consult was obtained to resecure the left lower quadrant drain. [facility] Medical History (Updated 09/14/25 @ 17:[address] Otilia Amado MD) VRE (vancomycin resistant enterococcus) culture positive Hemiparesis affecting left side as late effect of cerebrovascular accident Hypokalemia Essential (primary) hypertension Type 2 diabetes mellitus with hyperglycemia Retroperitoneal abscess Acute blood loss anemia Debility Leg wound, right Home Medications Medication Instructions Recorded Last Taken Type amlodipine 10 mg tablet 10 mg PO DAILY blood pressure 08/26/19 09/09/25 08:50 History lisinopril 40 mg tablet 40 mg PO DAILY blood pressure 08/22/21 Unknown History aspirin 81 mg tablet,delayed 81 mg PO DAILY heart health 08/03/25 09/09/25 08:40 History release (Adult Aspirin Regimen) atorvastatin 40 mg tablet 40 mg PO QHS cholesterol 08/03/25 09/08/25 21:45 History furosemide 20 mg tablet 20 mg PO DAILY PRN swelling 08/03/25 Unknown History hydrochlorothiazide 25 mg tablet 25 mg PO DAILY blood 08/03/25 09/09/25 08:40 History pressure/water pill insulin glargine 100 unit/mL (3 30 unit subcut QHS diabetes 08/03/25 Unknown History mL) subcutaneous pen (Lantus Solostar U-100 Insulin) potassium chloride 20 mEq 20 meq PO DAILY supplement 08/03/25 Unknown History tablet,extended release(part/cryst) spironolactone 25 mg tablet 25 mg PO DAILY water pill 08/03/25 09/09/25 08:40 History acetaminophen 325 mg tablet 650 mg PO Q6H inflammation/pain 08/31/25 09/09/25 12:45 History glipizide 10 mg tablet, extended 20 mg PO DAILY diabetes 08/31/25 Unknown History release 24 hr levofloxacin 750 mg tablet 750 mg PO DAILY infection 08/31/25 09/09/25 08:40 History ondansetron 4 mg disintegrating 4 mg PO Q8H PRN nausea and vomiting 08/31/25 Unknown History tablet oxycodone 5 mg tablet 5 mg PO Q4H PRN severe pain (scale 08/31/25 09/09/25 12:40 History score 7-10) octreotide acetate 100 mcg/mL 100 mcg subcut Q8H Ask your 09/09/25 09/09/25 12:40 History injection solution (Sandostatin) primary Doctor polyethylene glycol 3350 17 17 g PO DAILY Constipation 09/09/25 Unknown History gram/dose oral powder sennosides 8.6 mg-docusate sodium 1 tab-cap PO QHS Constipation 09/09/25 Unknown History 50 mg capsule (Senna Plus) Allergy/AdvReac Type Severity Reaction Status Date / Time No Known Allergies Allergy Verified 09/03/25 13:31 Family History Mother Colon cancer Surgical History History of laparotomy History of delivery Social History household members: spouse housing: house Smoking Status: Never smoker alcohol intake: never what type of physical activity do you participate in: none do you feel safe at home: Yes Physical Exam Narrative She is awake and alert. No acute distress. Abdomen is soft obese nontender. Midline incision appears to be healing appropriately. 2 drains were noted. 1 drain is more anterior and left-sided. And the other drain is more lateral and more inferior on the left. A small amount of purulent drainage is noted from each. It was noted that the left lower lateral drain was not secured to the skin. The previous sutures appear to be about 2 to 3 cm from the skin suggesting that the current drain is out about 2 to 3 cm more than the original placement depth. This was resecured using 2-0 nylon suture. Both drains were flushed/irrigated and were patent Lab / Micro Data 09/17/25 05:14 09/17/25 05:14 Labs: Laboratory Results - last 24 hr 09/18/25 15:54: POC Glucose 191 H 09/18/25 21:21: POC Glucose 208 H 09/19/25 05:49: POC Glucose 193 H 09/19/25 11:32: POC Glucose 244 H Micro: Microbiology 09/18/25 20:04 Wound - Abdominal Gram Stain - Final
--- NOTE | 2025-09-19 16:17 | NURSING ---
Dr. Montes De Oca in to see pt and placed a suture to hold the drain in place. Dr. MontesD e Oca flushed both ARNOL drain unable to get a accurate flush amount and output of each drain.
[2025-09-19 17:44] LABS: Mucous, Urine 0 SEEN /hpf (<or=2+); Red Blood Cells-Urine 0 SEEN /hpf (0-5); Squamous Epithelial Cells - UA 0 SEEN /hpf (5-10)
[2025-09-19 17:45] LABS: Color, Urine Straw (Yellow); Glucose, Dipstick 1000 mg/dl (Normal); Ketone-Dipstick Negative (Negative); Leukocyte Esterase-Dipstick Negative /ul (Negative); Nitrite-Dipstick Negative (Negative); Occult Blood-Urine Negative /ul (Negative); Protein-Dipstick 30 mg/dl (Negative); Specific Gravity, Urine 1.010 (1.002-1.030); Urine Bilirubin Dipstick Negative (Negative)
[2025-09-19] MEDS: Insulin Glargine-YFGN 100 UNIT/ML Pen 10 UNIT SC (22:08)
[2025-09-20] MEDS: Octreotide 0.1 MG/ML ML SC ×3 (06:09→22:09)
[2025-09-20] MEDS: 0.9% Saline Lock 10 ML Syringe IV ×2 (06:23→13:35)
[2025-09-20] MEDS: Potassium Chloride Oral Tablet 20 MEQ PO (09:55)
[2025-09-20 10:09] VITALS: BP 128/69; PULSE 96; RESP 18; TEMP 36.8; O2SAT 90
--- NOTE | 2025-09-20 13:06 | NURSING ---
Dr. Eller updated on pt's blood sugars. N.O. received to increase Glargine to 15 units and Lispro 3 units TIDAC. Orders read back.
--- NOTE | 2025-09-20 15:30 | NURSING ---
Pt C/O of increased drainage and mucus production which is making her gag and vomit. Per pt had vomited a small amount this afternoon this nurse was not made aware until now. Dr. Eller updated N.O. for Mucinex 600mg BID. Order read back.
--- NOTE | 2025-09-20 16:41 | NURSING ---
Pt C/O of increased drainage and mucus production which is making her gag and vomit. This nurse has not witnessed any episodes of emesis. Dr. Eller updated N.O. for Mucinex 600mg BID. Order read back.
[2025-09-20] MEDS: Insulin Glargine-YFGN 100 UNIT/ML Pen 15 UNIT SC (22:04)
[2025-09-21] MEDS: Octreotide 0.1 MG/ML ML SC ×3 (06:10→23:10)
[2025-09-21 06:42] VITALS: O2SAT 91
[2025-09-21 08:23] VITALS: BP 145/74; PULSE 90; RESP 20; TEMP 36.7; O2SAT 92
[2025-09-21] MEDS: Potassium Chloride Oral Tablet 20 MEQ PO (08:34)
--- NOTE | 2025-09-21 08:53 | NURSING ---
Had lengthy discussion with Dr. Eller and resident's this morning at nurse's station. Dr. Eller discussed how resident is not progressing with therapy, is not improving clinically, abscesses looking worse on CT. He stressed importance of having resident taken to surgical f/u appt in person. reluctant d/t cost but in the end agreed. Let them know this RN would update the surgical team on how resident is doing in therapy and about CT/surgical consult that happened over the weekend. Unable to reach trauma/surgeon office staff. Per scheduling they aren't open on Mondays and nurse's line doesn't have a VM to leave a message. Scheduling sent an e-mail to the surgeon office letting them know this RN wanted to provide updates on how resident is doing and fax over CT report.
[2025-09-21] MEDS: 0.9% Saline Lock 10 ML Syringe IV (09:46)
--- NOTE | 2025-09-21 14:36 | NURSING ---
Called oncology office about appt. They will review and call back to schedule if appropriate. Did talk with about setting up appt and he was on board.
[2025-09-21] MEDS: Insulin Glargine-YFGN 100 UNIT/ML Pen 15 UNIT SC (23:09)
[2025-09-22] MEDS: Octreotide 0.1 MG/ML ML SC ×3 (05:07→22:11)
[2025-09-22] MEDS: Potassium Chloride Oral Tablet 20 MEQ PO (08:37)
[2025-09-22 08:47] VITALS: BP 124/67; PULSE 89; RESP 18; TEMP 37.1; O2SAT 91
--- NOTE | 2025-09-22 09:58 | NURSING ---
PT LEFT BY COT [facility] AT 0930 WITH BY HER SIDE TO FOR APPOINTMENT.
--- NOTE | 2025-09-22 14:47 | NURSING ---
PT RETURNED BY COT FROM APPOINTMENT AT 1415 WITH .SEE NEW ORDERS.
--- NOTE | 2025-09-22 14:57 | NURSING ---
Call from Irish Russell HEEL DIPPER from surgeon office. She said they could not pull up images from their system, let her know it was confirmed they were sent to the system. She did say they would like to do CT tomorrow at [facility], it was scheduled for 1700, needs to arrive at 1645 and have only clear liquids 3 hours prior. She stated she would watch for the repeat CT and would then call to update staff on the plan. She took this nurse's name and the fax number to send over her note. She noted resident could possibly need another drain, concern for possible lymph drainage. She gave orders to clean around drains BID with soap and water and apply gauze. Orders to stop packing small area at bottom of abdominal incision and just clean with soap and water and apply sterile gauze to protect area. She also noted asked about blood thinner, and that they discussed why it was discontinued. noted increase in leg pain. Irish offered to check BLE for DVTs but resident declined. Let her know RN would help set up transport for resident and then await her call about the CT results. This RN in room to talk with resident and after returning from visit. They both expressed frustration with visit and imaging not being available. Apologized for the issues with the images being visible to . CT report was printed and sent with resident. continued to express frustration but did agree to having transport set up for CT scan tomorrow in [place]. [facility] and set up transport for 09/23/25, 3:30 cot pickup for a 1645 appt. Updated resident and .
--- NOTE | 2025-09-22 15:29 | WOUNDNOTE ---
Pt just returned from follow up appt. did not assess abdomen at this time. new orders were placed for dry dressing with no further packing needed to abdominal incision. will continue to monitor.
[2025-09-22 17:58] VITALS: BMI 30.9
[2025-09-23] MEDS: Octreotide 0.1 MG/ML ML SC ×3 (06:34→20:56)
[2025-09-23] MEDS: Potassium Chloride Oral Tablet 20 MEQ PO (08:57)
[2025-09-23 09:12] VITALS: BP 123/69; PULSE 94; RESP 16; TEMP 36.6; O2SAT 94
--- NOTE | 2025-09-23 09:55 | NURSING ---
Addendum entered by Valentine Torres 09/23/25 11:16: Called and updated Kierra with the surgical office, she will let Irish Russell CNP know. Cancelled CT at [facility] and Physician's transport. Original Note: Updated that family wanting to speak with this RN. In room dtr at bedside. They wanted to have as part of conversation and put him on speaker phone. Dtr and expressed being very frustrated with the events of yesterday, how the CT scan images were not able to be found by the staff. They all expressed not wanting her to have to go to [place] to get a repeat CT scan done. Dtr asking about just taking resident to [facility] as they are frustrated with . Discussed their options and all agreed to do CT scan here and try again to have sent to surgeon office. This RN to update Dr Eller and Irish Russell CNP from the surgery team of the plan. Updated Dr. Eller, order to complete abdomen/pelvis CT with contrast.
--- NOTE | 2025-09-23 12:18 | NURSING ---
Addendum entered by Valentine Torres 09/23/25 12:29: Back to room from CT. Original Note: Off unit for CT scan
--- NOTE | 2025-09-23 14:35 | NURSING ---
Addendum entered by Valentine Torres 09/23/25 14:50: Updated that radiology called office, confirmed that they are able to view images and disc no longer needs to be sent. Original Note: Called surgery office and updated them imaging should be able to be retrieved on their end. Call back from a nurse Tri Starla who was adamant that them retrieving the images wasn't possible, demanding to know how she would be able to do that. Let her know our images have been shared to the system before and other physicians/offices have been able to view them. She denied and said resident should have gone to [facility] for scans. Tried to ask her if RN could pass along the report from the scan and she said "that won't mean anything to me." She continued to express frustration that the resident hadn't followed their recommendations to go to [facility] or that they hadn't brought a disc with images to the appt. Let her know this RN doesn't understand the entire process but asked what she'd like done at this time, offered to send disc via mail and fax report. She agreed. Family and resident updated that per CT report the abscesses appear to be improving. Let them know disc would be sent with images and that our radiology department was going to reach out to the office to help them retrieve the images. on the phone and asked that the drain output also be sent. Agreed to send. RN poke with [facility] radiology department, disc will be sent to the office. Report from abdomen/pelvis for today and last few days of drain output sent to number Tri vicente [phone].
[2025-09-23 18:52] LABS: Hematocrit 30.7 % (37-47); Hemoglobin 8.9 g/dL (12.0-15.0); Immature Granulocytes Count 0.380 X10^3/uL (0.0-0.0); Mean Corp Hgb Conc 29.0 g/dL (32-36); Mean Corpuscular Volume 92.2 fL (81-99); Mean Platelet Vol. 9.0 fl (6.2-12.0); NRBC Flagged by Analyzer 0.6 % (0-5); POSITIVE MORPHOLOGY YES; Platelet Count 380 K/mm3 (150-450); RBC Distribution Width CV 19.2 % (11.6-14.6); RBC Distribution Width SD 64.9 fl (35.1-43.9); Red Blood Count 3.33 M/mm3 (4.2-5.4); White Blood Count 10.3 K/mm3 (4.4-11.0)
[2025-09-23 19:13] LABS: Differential Indicated SCAN CRITERIA MET
[2025-09-23 20:39] LABS: Differential Comment SCANNED
[2025-09-23] MEDS: Insulin Glargine-YFGN 100 UNIT/ML Pen 15 UNIT SC (20:55)
[2025-09-23] MEDS: 0.9% Saline Lock 10 ML Syringe IV (20:56)
[2025-09-24] MEDS: Octreotide 0.1 MG/ML ML SC ×3 (05:22→21:21)
[2025-09-24] MEDS: 0.9% Saline Lock 10 ML Syringe IV ×3 (05:22→21:21)
[2025-09-24 05:48] LABS: Hematocrit 29.0 % (37-47); Hemoglobin 8.5 g/dL (12.0-15.0); Immature Granulocytes Count 0.310 X10^3/uL (0.0-0.0); Mean Corp Hgb Conc 29.3 g/dL (32-36); Mean Corpuscular Volume 92.1 fL (81-99); Mean Platelet Vol. 9.1 fl (6.2-12.0); NRBC Flagged by Analyzer 0.6 % (0-5); POSITIVE DIFFERENTIAL YES; POSITIVE MORPHOLOGY YES; Platelet Count 344 K/mm3 (150-450); RBC Distribution Width CV 19.1 % (11.6-14.6); RBC Distribution Width SD 65.0 fl (35.1-43.9); Red Blood Count 3.15 M/mm3 (4.2-5.4); White Blood Count 11.6 K/mm3 (4.4-11.0)
[2025-09-24 05:51] LABS: Differential Indicated SCAN CRITERIA MET
[2025-09-24 06:11] LABS: Anion Gap 10 (5-15); BUN 44 mg/dL (4-19); BUN/Creat Ratio 34.8 RATIO (10-20); Calcium,Total 8.4 mg/dL (7.6-11.0); Carbon Dioxide 21.2 mmol/L (21.0-32.0); Chloride 109 mmol/L (98-108); Estimated Creatinine Clearance 45.08 ml/min (50-250); Glucose 104 mg/dL (70-99); Potassium 5.3 mmol/L (3.3-5.1)
[2025-09-24] MEDS: Aspirin E.C. 81 MG Tablet PO (08:17)
[2025-09-24 08:42] VITALS: BP 133/66; PULSE 92; RESP 18; TEMP 36.7; O2SAT 93
--- NOTE | 2025-09-24 08:43 | NURSING ---
PT THREW UP ALL MORNING PILLS AND FOOD THIS MORNING 200 CC. PT STATED SHE DIDNT FEEL NAUSEATED. ALSO PT DRAIN SITE DRESSING CHANGED DO TO IT BEING SATURATED WITH GREENISH DRAINAGE. CLEANING SITE AREA AND IT CONTINUED TO RUN OUT. NOTIFIED RN TO ROOM. NEW DRESSING APPLIED TO AREA. WILL CONTINUE TO MONITOR. NOTE LEFT FOR
--- NOTE | 2025-09-24 08:47 | NURSING ---
PT LEFT FLOOR AT 0845 BY WHEEL CHAIR WITH TO ONCOLOGY APPOINTMENT.
--- NOTE | 2025-09-24 08:52 | NURSING ---
Lab called urine culture VRE+, updated Dr. Eller via secure text. No new orders.
--- NOTE | 2025-09-24 10:14 | NURSING ---
0852- Lab called urine culture VRE+, updated Dr. Eller via secure text. No new orders.
--- NOTE | 2025-09-24 10:17 | NURSING ---
Addendum entered by Ludwin Weber 09/24/25 13:23: PT HAS HAVE POSITIVE RESULTS FROM [facility] Original Note: [facility] GIVEN PER ORDER DUE TO POTASSIUM 5.3. EDUCATED PT AND ON WHY PT IS GETTING IT.
--- NOTE | 2025-09-24 11:24 | NURSING ---
Called surgeon office to f/u on the plan after they'd received imaging. Let them know there is some increased drainage (same as what is coming out of drain) around the one drain. Await return call. has been at bedside today. He's asked if nursing had heard from the office, let him know staff would update them if we do.
--- NOTE | 2025-09-24 11:30 | NURSING ---
Addendum entered by Valentine Torres 09/24/25 11:39: Labs drawn at appt, b12 and iron studies. Original Note: PT RETURNED FROM ONCOLOGY AT 0930 BY WHEEL CHAIR WITH . NO NEW ORDERS AT THIS TIME.
--- NOTE | 2025-09-24 15:56 | NURSING ---
WANTED TO TALK TO THIS NURSE AND STATED [facility] CALLED HIM AND WANTS TO DO A PROCEDURE ON PT TO TRY AND STOP THE DRAINAGE AROUND DRAIN SITE BUT THERE WASN'T ANY GUARANTEE IT WOULD WORK. STATED HE AND FAMILY WILL DISCUSES IT WITH PT AND GO FROM THERE. STATED PROCEDURE WOULD BE DONE Sunday09/28/25 AND IF THEY DECIDE TO DO PROCEDURE THEY WOULD NEED TRANSPORT SET UP. ALSO ASKED TO TALK TO TO GET HIS INPUT ON PROCEDURE IF HE KNEW. LEFT NOTE FOR . RN AND DIMITRI LEDESMA.
--- NOTE | 2025-09-24 18:09 | NURSING ---
IN TO SEE PT AND TALK TO . PT AND FAMILY DECIDED NOT TO GO TO NEXT WEEK FOR PROCEDURE. WILL GIVE IT A FEW MORE DAYS AND DO A CT OF THE ABDOMINAL NEXT WEEK. NEW ORDERS FOR AMOXICILLIN FOR DRAINAGE/ABDOMINAL AREA TILL 10/01/25, AND [place] FOR LEGS. THIS NURSE HAS CHANGED DRESSINGS TO UPPER ABDOMINAL DRAIN SITE 4 TIMES TODAY AND HARSHA,RN/WOUND NURSE ONCE. MODERATE/GREENISH DRAINAGE. DRAINS ALSO EMPTIED PER ORDER. POTASSIUM D/C. WILL CONTINUE TO MONITOR.
[2025-09-24] MEDS: AMOXICILLIN 500 MG CAPSULE PO ×2 (19:50→21:51)
[2025-09-24 19:55] VITALS: PULSE 120; RESP 18; O2SAT 95
[2025-09-24] MEDS: Insulin Glargine-YFGN 100 UNIT/ML Pen 15 UNIT SC (21:21)
[2025-09-25 05:51] LABS: Hematocrit 30.1 % (37-47); Hemoglobin 8.6 g/dL (12.0-15.0)
[2025-09-25] MEDS: Octreotide 0.1 MG/ML ML SC ×3 (06:18→21:18)
[2025-09-25] MEDS: AMOXICILLIN 500 MG CAPSULE PO ×3 (06:18→21:09)
[2025-09-25] MEDS: 0.9% Saline Lock 10 ML Syringe IV ×3 (06:19→15:57)
[2025-09-25 06:23] LABS: Anion Gap 13 (5-15); BUN 50 mg/dL (4-19); BUN/Creat Ratio 34.5 RATIO (10-20); Calcium,Total 8.5 mg/dL (7.6-11.0); Carbon Dioxide 20.9 mmol/L (21.0-32.0); Chloride 109 mmol/L (98-108); Estimated Creatinine Clearance 39.48 ml/min (50-250); Glucose 89 mg/dL (70-99); Potassium 4.2 mmol/L (3.3-5.1)
[2025-09-25 08:55] VITALS: BP 107/59; PULSE 103; RESP 18; O2SAT 99
[2025-09-25] MEDS: Aspirin E.C. 81 MG Tablet PO (08:56)
[2025-09-25] MEDS: 0.9% Normal Saline (1000mL) 1,000 ML 75 ML IV (09:33)
--- NOTE | 2025-09-25 12:36 | NURSING ---
Called and left updating surgeon office that resident and decided to hold off on procedure for now.
--- NOTE | 2025-09-25 14:40 | RAD_ITS ---
PROCEDURE: ABDOMEN SINGLE VIEW (PORTABLE) 09/25/2025 REASON FOR EXAM: LOOSE STOOL TECHNIQUE: Procedure Code: None modality: DX Procedure: ABDOMEN SINGLE VIEW (PORTABLE) FINDINGS: Bowel gas: Nonspecific bowel gas pattern. Calcifications: No suspicious calcifications. Bones: Prior laminectomy and multilevel fusion. Other: RAD/Abdomen Single View (Portable) IMPRESSION: Nonspecific bowel gas pattern. Reading Location: [facility]
--- NOTE | 2025-09-25 21:00 | NURSING ---
Patient's IV noted to be leaking in LFA. IV discontinued and new IV started in right AC. Receiving IV fluids 75ml/hr.
[2025-09-25] MEDS: MethylPREDNISolone DosePak 4 MG BOX PO (21:06)
[2025-09-25] MEDS: Insulin Glargine-YFGN 100 UNIT/ML Pen 15 UNIT SC (21:24)
[2025-09-26] MEDS: 0.9% Normal Saline (1000mL) 1,000 ML 75 ML IV (01:30)
[2025-09-26] MEDS: AMOXICILLIN 500 MG CAPSULE PO ×3 (06:45→21:56)
[2025-09-26] MEDS: Octreotide 0.1 MG/ML ML SC ×3 (06:46→22:09)
[2025-09-26 07:13] LABS: Anion Gap 10 (5-15); BUN 62 mg/dL (4-19); BUN/Creat Ratio 42.5 RATIO (10-20); Calcium,Total 7.9 mg/dL (7.6-11.0); Carbon Dioxide 21.1 mmol/L (21.0-32.0); Chloride 107 mmol/L (98-108); Estimated Creatinine Clearance 39.48 ml/min (50-250); Glucose 152 mg/dL (70-99); Potassium 5.1 mmol/L (3.3-5.1)
[2025-09-26 08:22] VITALS: BP 106/51; PULSE 87; RESP 18; TEMP 36.4; O2SAT 92
[2025-09-26] MEDS: Aspirin E.C. 81 MG Tablet PO (08:25)
[2025-09-26] MEDS: MethylPREDNISolone DosePak 4 MG BOX PO ×4 (08:28→21:56)
[2025-09-26] MEDS: Insulin Glargine-YFGN 100 UNIT/ML Pen 20 UNIT SC (22:03)
[2025-09-27] MEDS: AMOXICILLIN 500 MG CAPSULE PO ×3 (06:08→22:00)
[2025-09-27] MEDS: Octreotide 0.1 MG/ML ML SC ×3 (06:09→22:01)
[2025-09-27 09:28] VITALS: BP 125/61; PULSE 79; RESP 18; TEMP 36.5; O2SAT 92
[2025-09-27] MEDS: MethylPREDNISolone DosePak 4 MG BOX PO ×4 (09:33→21:58)
[2025-09-27] MEDS: Aspirin E.C. 81 MG Tablet PO (09:34)
[2025-09-27] MEDS: Insulin Glargine-YFGN 100 UNIT/ML Pen 25 UNIT SC (22:13)
[2025-09-28] MEDS: AMOXICILLIN 500 MG CAPSULE PO ×3 (06:31→22:02)
[2025-09-28] MEDS: Octreotide 0.1 MG/ML ML SC ×3 (06:31→21:59)
[2025-09-28] MEDS: 0.9% Saline Lock 10 ML Syringe IV ×3 (06:34→22:01)
[2025-09-28] MEDS: Aspirin E.C. 81 MG Tablet PO (07:57)
[2025-09-28] MEDS: MethylPREDNISolone DosePak 4 MG BOX PO ×3 (07:58→22:03)
[2025-09-28 10:00] VITALS: BP 137/61; PULSE 92; RESP 12; TEMP 36.2; O2SAT 92
--- NOTE | 2025-09-28 13:53 | WOUNDNOTE ---
In to reassess the drain sites to the abdomen. more redness noted today and a large amount of brown drainage noted around the drain sites. Dr Eller was notified by nursing and a CT scan was ordered. new dressings applied at this time.
--- NOTE | 2025-09-28 15:43 | NURSING ---
Addendum entered by Ibis Rolon 09/28/25 15:54: Nursing staff sent picture of drainage to Dr. Eller and he gave order for another wound culture and to consult Dr. Cooper. Consult placed and culture sent down to lab. Original Note: 1200- Drainage to upper left side drain has changed from milky norman color that it had consistently been to brown. It is thicker and oozing around the drain insertion site. Nursing reporting dressing to site has needed changed multiple times. Updated Dr. Eller about change in drainage. Order for CT abdomen/pelvis with contrast. Updated resident and that CT to be done, they are in agreement. Resident denies any symptoms or discomfort. Resident taken down for CT via bed at 1535.
--- NOTE | 2025-09-28 19:26 | NURSING ---
Patient had abdominal CT this afternoon and results given to Dr. Eller. MEAGHAN for labs in the AM and to fax results to [facility] in the AM. Patient and daughter made aware.
[2025-09-28] MEDS: Insulin Glargine-YFGN 100 UNIT/ML Pen 25 UNIT SC (22:01)
[2025-09-28 22:33] VITALS: PULSE 82; RESP 18; O2SAT 95
[2025-09-29] MEDS: Octreotide 0.1 MG/ML ML SC ×2 (05:31→14:00)
[2025-09-29] MEDS: AMOXICILLIN 500 MG CAPSULE PO (05:32)
[2025-09-29] MEDS: 0.9% Saline Lock 10 ML Syringe IV ×3 (05:32→13:58)
[2025-09-29 05:45] LABS: Hematocrit 28.7 % (37-47); Hemoglobin 8.4 g/dL (12.0-15.0); Mean Corp Hgb Conc 29.3 g/dL (32-36); Mean Corpuscular Volume 87.5 fL (81-99); Mean Platelet Vol. 9.1 fl (6.2-12.0); POSITIVE COUNT YES; POSITIVE DIFFERENTIAL YES; POSITIVE MORPHOLOGY YES; Platelet Count 510 K/mm3 (150-450); RBC Distribution Width CV 18.3 % (11.6-14.6); RBC Distribution Width SD 58.7 fl (35.1-43.9); Red Blood Count 3.28 M/mm3 (4.2-5.4); White Blood Count 14.0 K/mm3 (4.4-11.0)
[2025-09-29 05:46] LABS: Differential Indicated MANUAL DIFF
[2025-09-29 06:29] LABS: AST(SGOT) 16 U/L (<=31); Alanine Aminotransfer ALT/SGPT 8 U/L (<=34); Albumin, Serum 2.5 g/dL (3.4-4.8); Alkaline Phosphatase 148 U/L (35-104); Anion Gap 10 (5-15); BUN 60 mg/dL (4-19); BUN/Creat Ratio 72.8 RATIO (10-20); Calcium,Total 8.6 mg/dL (7.6-11.0); Carbon Dioxide 23.0 mmol/L (21.0-32.0); Chloride 109 mmol/L (98-108); Estimated Creatinine Clearance 68.98 ml/min (50-250); Globulin 3.4 g/dL (2.2-4.2); Glucose 75 mg/dL (70-99); Potassium 5.1 mmol/L (3.3-5.1)
[2025-09-29 06:34] LABS: Neutrophil-Band 4 % (0-5); Neutrophil-Segmented 73 % (47-70); Nucleated Red Bld Cells,Manual 1 % (0-5); Total Cells Counted 100 (MANUAL DIFF)
[2025-09-29 06:36] LABS: Red Cell Morphology NORM C+C NORMAL (NORM C&C)
[2025-09-29] MEDS: Aspirin E.C. 81 MG Tablet PO (08:34)
[2025-09-29] MEDS: MethylPREDNISolone DosePak 4 MG BOX PO (08:35)
[2025-09-29 08:49] VITALS: BP 134/66; PULSE 89; RESP 18; TEMP 36.7; O2SAT 92
--- NOTE | 2025-09-29 10:05 | NURSING ---
Addendum entered by Valentine Torres 09/29/25 11:32: Clinical Manger direct #[phone] Original Note: Left VM with clinical staff Cat Remar from surgical team. Explained concerns with drainage, updated her that CT done yesterday and images send, report/labs/culture results faxed to them. Await return call.
--- NOTE | 2025-09-29 10:27 | CON.PCM.ID_ITS ---
Assessment & Plan Assessment/Plan (1) Bowel perforation: PLAN: CT 09/28/25 showed continued RP abscesses, new gas/fluid collection adjacent to proximal jejunum. New feculent drainage from drain tubes. Drain cx 09/28 with possible pseudomonas. Drain site 09/25 with C albicans, VRE, CoNS, Yeast non-albicans Ucx 09/25 yeast, VRE Drain cx 09/02 PsA, VRE, yeast (albicans and non-albicans) Currently on amoxicillin and fluconazole. Currently clinically stable, but recommend urgent transfer. Will change abx to dapto, meropenem, and micafungin. Will follow, thank you, d/w nursing. HPI Consult Data Date of Consult: 09/29/25 HPI Narrative Reason for Consultation: abscess HPI Narrative: MERARY ONTIVEROS, is a 60 F with h/o DM, spine surgery, L sided hemiparesis s/p stroke, presented to ED 08/03/25 with pneumoperitoneum. Transferred to for OR 08/05 for ex lap. No perforation seen. Drain placed in RP abscess. EGD and then SBFT did not identify source either. Drain placed in L sanya abd collection. Seen by ID, changed to levaquin and flagyl. Discharged to TCU 08/31/25. Drain cx 09/02 with VRE, PsA, and yeast x2 (PsA was R to levaquin). Readmitted to 09/03-09/08 with increased drain output, continued on po levaquin and sent back to TCU. Started on amoxicillin 09/24 for suspected cellulitis and wound cx (+) lactobacillus. Now with 5 days feculent drainage from drain. Ucx 09/25 with yeast and VRE. Fluconazole added 09/27. Feeling ok, denies fever or abd pain. Daughter at bedside provided additional history. Full ROS performed and neg except as noted above. [facility] Medical History VRE (vancomycin resistant enterococcus) culture positive Hemiparesis affecting left side as late effect of cerebrovascular accident Hypokalemia Essential (primary) hypertension Type 2 diabetes mellitus with hyperglycemia Retroperitoneal abscess Acute blood loss anemia Debility Leg wound, right Home Medications Medication Instructions Recorded Last Taken Type amlodipine 10 mg tablet 10 mg PO DAILY blood pressur e 08/26/19 09/09/25 08:50 History lisinopril 40 mg tablet 40 mg PO DAILY blood pressur e 08/22/21 Unknown History aspirin 81 mg tablet,delayed 81 mg PO DAILY heart heal th 08/03/25 09/09/25 08:40 History release (Adult Aspirin Regimen) atorvastatin 40 mg tablet 40 mg PO QHS cholesterol 09/08/25 21:45 History furosemide 20 mg tablet 20 mg PO DAILY PRN swelling 08/03/25 Unknown History hydrochlorothiazide 25 mg tablet 25 mg PO DAILY blood 08/03/25 09/09/25 08:40 History pressure/water pill insulin glargine 100 unit/mL (3 30 unit subcut QHS brittanie betes 08/03/25 Unknown History mL) subcutaneous pen (Lantus Solostar U-100 Insulin) potassium chloride 20 mEq 20 meq PO DAILY supplement 0 08/03/25 Unknown History tablet,extended release(part/cryst) spironolactone 25 mg tablet 25 mg PO DAILY water pill 08/03/25 09/09/25 08:40 History acetaminophen 325 mg tablet 650 mg PO Q6H inflammation /pain 08/31/25 09/09/25 12:45 History glipizide 10 mg tablet, extended 20 mg PO DAILY diabet es 08/31/25 Unknown History release 24 hr levofloxacin 750 mg tablet 750 mg PO DAILY infection 1 09/09/25 08:40 History ondansetron 4 mg disintegrating 4 mg PO Q8H PRN nausea and vomiting 08/31/25 Unknown History tablet oxycodone 5 mg tablet 5 mg PO Q4H PRN severe pain (scale 08/31/25 09/09/25 12:40 History score 7-10) octreotide acetate 100 mcg/mL 100 mcg subcut Q8H Ask y our 09/09/25 09/09/25 12:40 History injection solution (Sandostatin) primary Doctor polyethylene glycol 3350 17 17 g PO DAILY Constipation 09/09/25 Unknown History gram/dose oral powder sennosides 8.6 mg-docusate sodium 1 tab-cap PO QHS Con stipation 09/09/25 Unknown History 50 mg capsule (Senna Plus) Allergy/AdvReac Type Severity Reaction Status Date / Time No Known Allergies Allergy Verified 09/24/25 09:01 Family History Mother Colon cancer Surgical History History of laparotomy History of delivery Social History household members: spouse housing: house Smoking Status: Never smoker alcohol intake: never what type of physical activity do you participate in: none do you feel safe at home: Yes Physical Exam Const alert, oriented x3 and no apparent distress General Appearance: cooperative HEENT normocephalic and head/scalp atraumatic Eyes PERRL and EOMs intact bilaterally Neck supple and No nodes Resp normal air movement and clear to auscultation bilaterally Cardio regular rate, regular rhythm and no murmurs GI soft to palpation and non-tender GI Narrative: moderate distension Extremity General Extremity: edema Skin Skin Narrative: Some chronic skin changes bilat lower legs. Abd drains with feculent output. Neuro CN's II-XII intact bilaterally Lab / Micro Data Attestation: I reviewed the patient's lab results. 09/29/25 05:11 09/29/25 05:11 Labs: Laboratory Results - last 24 hr 09/26/25 16:23: POC Glucose 321 H 09/26/25 16:25: POC Glucose 336 H 09/28/25 11:49: POC Glucose 180 H 09/28/25 16:57: POC Glucose 194 H 09/28/25 21:30: POC Glucose 209 H 09/29/25 05:11: WBC 14.0 H, RBC 3.28 L, Hgb 8.4 L, Hct 28.7 L, MCV 87.5, MCH 25.6 L, MCHC 29.3 L, RDW Std Deviation 58.7 H, RDW Coeff of Ector 18.3 H, Plt Count 510 H, MPV 9.1, Neut % (Auto) Not Reportable, Absolute Neuts (auto) 10.8 H , Absolute Lymphs (auto) 1.40, Total Counted 100, Neutrophils % (Manual) 73 H, Band Neutrophils % 4, Lymphocytes % (Manual) 10 L, Monocytes % (Manual) 8, M etamyelocytes % 5 H, Nucleated RBCs/100 WBC 1, Platelet Estimate MOD INC, Plt Morphology Comment CLUMPED, RBC Morphology NORM C+C, Sodium 142, Potassium 5.1, Chloride 109 H, Carbon Dioxide 23.0, Anion Gap 10, BUN 60 H, Creatinine 0.83, Estim Creat Clear Calc 68.98, Est GFR (MDRD) Non-Af 80, BUN/Creatinine Ratio 72.8 H, Glucose 75, Calcium 8.6, Total Bilirubin < 0.15, AST 16, ALT 8, Alkaline Phosphatase 148 H, Total Protein 5.8 L, Albumin 2.5 L, Globulin 3.4, A lbumin/Globulin Ratio 0.7 L 09/29/25 05:55: POC Glucose 70 L Micro: Microbiology 09/28/25 16:00 Drainage Tube Gram Stain - Final 09/28/25 16:00 Drainage Tube Wound Culture - Preliminary GNR Poss Pseudomonas sp 09/25/25 14:15 Discharge - Incision site Gram Stain - Final 09/25/25 14:15 Discharge - Incision site Wound Culture - Final Presumptive C albicans Vancomycin Resist. E. faecium Coag Negative Staph Yeast, not Melina albicans 09/25/25 14:15 Urine Catheter - Catheter Urine Culture - Final Yeast, not Melina albicans Vancomycin Resist. E. faecium
[2025-09-29 11:15] VITALS: PULSE 89; RESP 18; O2SAT 92
--- NOTE | 2025-09-29 11:26 | NURSING ---
Addendum entered by Valentine Torres 09/29/25 12:39: Call back from staff, they said Dr. Eller would have to call transfer center and process for direct admit would be at least [address]. [address] Eller, he feels sending to ER would be better. RN discussed with resident and dtr at bedside, they agree. Physicians cot transport set up for 1630 to [facility] ER. Updated dtr/resident. Original Note: Spoke with dtr and resident in room, discussed Dr. Cooper's recommendations for transfer. They agree and would like her to go to . Dtr asking if they could "go right to a room" instead of through the ER, which she notes would save time and money. Agreed to see if surgical team would accept as a direct admit. Called and spoke to office, direct line give for Cat clinical restaurant manager. left VM with Cat explaining above. Await return call.
[2025-09-29 11:28] VITALS: BMI 30.7
[2025-09-29] MEDS: 0.9% Normal Saline (250mL Bag) 250 ML 15 ML IV (11:47)
[2025-09-29] MEDS: NORMAL SALINE 0.9% IV (11:48)
[2025-09-29] MEDS: DAPTOMYCIN IV (11:48)
[2025-09-29] MEDS: Micafungin Sodium 100 MG in Dextrose 5%-Water (100mL Bag) 100 ML IV (12:37)
[2025-09-29] MEDS: Meropenem 1 GM in 0.9% Normal Saline (100mL MB+) 100 ML IV (13:47)
--- NOTE | 2025-09-29 15:28 | NURSING ---
Called report to Luis at [facility] ER. Let him know disc being sent with recent imaging (given to dtr to get to staff).
--- NOTE | 2025-09-29 16:42 | NURSING ---
PT REQUESTING PT TO BE SENT TO [facility]. CALLED [facility] AND TALKED TO CHARGE NURSE,CHARGE NURSE STATED THEY COULDN'T TAKE PT DUE TO [facility] BEING A HOSPITAL. IT WAS EXPLAINED TO NURSE BY THIS NURSE AND RN WE ARE SEPARATE FROM THE HOSPITAL AND ARE A REHAB UNIT/HALF-WAY. CHARGE NURSE FROM STATED WHY ARE YOU SENDING PT TO US. TOLD NURSE FAMILY REQUESTED AND WANTED A SECOND OPINION DUE TO TO CARE THEY GOT FROM . CHARGE NURSE STATED WE NEED A PHYSICIAN TO PHYSICIAN REPORT AND LET ME ASK YOU THIS. IF WE FIND NOTHING WRONG THEN WHERE DO WE SEND THE PT. THIS NURSE STATED WE WOULD HAVE TO APPROVAL TO READMIT PT. CHARGE NURSE THEN ASKED ,WHERE DO YOU SEND PT WHEN THEY ARE HAVING PROBLEMS? THIS NURSE STATED TO OUR ER BUT THERE IS NOTHING THAT WE CAN DO HERE FOR HER AND OUR INFECTIOUS DISEASE DR SAID TO TRANSPORT HER OUT. CHARGE NURSE STATED LET ME TELL YOU SOME THING YOU CAN TELL THE PT FAMILY. SEND HER TO AND IF THERE NOT HAPPY WITH HER CARE AND WANT A SECOND OPINION GET A HOLD OF THERE CASE MANAGEMENT AND TELL THEM THEY WANT TRANSPORTED TO [facility]. CALL ENDED. UPDATED RN AND RN TALKED TO FAMILY. FAMILY AGREED TO GO TO . RN CALLED AND UPDATED SANDER AND THIS NURSE UPDATED .
[2025-09-29 17:19] VITALS: BP 120/55; PULSE 82; RESP 18; TEMP 36.8; O2SAT 95
--- NOTE | 2025-09-30 07:39 | DS.PCM_ITS ---
Providers Date of Admission: 09/09/25 Primary Care Physician: Danay Fontenot MD Consultations 09/09/25 19:23 Consult: Onc/Wound/fish and wildlife technician Routine Comment: 09/14/25 09:52 Consult: [employer] Routine Consulting Provider: Otilia Amado Reason for Consult: vaginal bleeding EMERGENT Consult: No Notified: Yes Date Notified: 09/14/25 Time Notified: 09:00 Method of Notification: Answering Service 09/19/25 10:28 Consult: General Surgery Routine Consulting Provider: Liam Montes De Oca Reason for Consult: ARNOL drain disloged EMERGENT Consult: No Notified: Yes Date Notified: 09/19/25 Time Notified: 10:28 Method of Notification: Text 09/28/25 15:42 Consult: Infectious Disease Routine Consulting Provider: Harman Cooper Reason for Consult: Abscesses EMERGENT Consult: No Notified: Yes Date Notified: 09/28/25 Time Notified: 15:42 Method of Notification: Text Reason For Visit: RETRO PERITONEAL PERFORATION Diagnosis Discharge Diagnosis (1) Bowel perforation: Status: Acute Code(s): K63.1 - Perforation of intestine (nontraumatic) Plan 60 year old female with below past medical history hospitalized for intra- abdominal fluid collections high in amylase, lipase, triglycerides, pancreatic fistula ruled out by mrcp, treated with low fat diet, complicated by right hydronephrosis, admitted to TCU with debility, here for rehabilitation, strengthening, prior to discharge home with . * Debility - PT/OT. * Pain - Tylenol 1000mg q8, Oxycodone 5mg q4 prn. * Bowel - senna/colace 1 tablet qhs, Miralax 17gm daily. * Adult immunization - Administer pneumonia vaccine, covid vaccine, flu vaccine as appropriate. * DVT prophylaxis - Lovenox 40mg sc daily. * Right hydronephrosis - order renal ultrasound, consider urology consultation. * HTN - Lisinopril 40mg daily, HCTZ 25mg daily, Amlodipine 10mg daily. * CV prophylaxis - Aspirin 81mg daily. * Hyperlipidemia - Atorvastatin 40mg qhs. * Chronic HFpEF - Lisinopril 40mg daily, Aldactone 25mg daily, Furosemide 20mg daily prn. * Diabetes Mellitus II - Glipizide 20mg qam, Glargine 30 units qhs, Glucagon 1mg im x 1 prn. * Retroperitoneal abscess - Levaquin 750mg daily thru 09/27/2025, CT A/P in 2 weeks, f/u general surgery. * Pancreatic fluid collection - Octreotide 0.1mg sc q8, monitor drain outputs closely, CT A/P in 2 weeks, f/u general surgery. * Nausea - Zofran 4mg q8 prn. * Hypokalemia - KCL 20meq daily. Medications at Discharge Home Medications amlodipine 10 mg tablet 10 mg PO DAILY blood pressure 08/26/19 lisinopril 40 mg tablet 40 mg PO DAILY blood pressure 08/22/21 aspirin 81 mg tablet,delayed release (Adult Aspirin Regimen) 81 mg PO DAILY heart health 08/03/25 atorvastatin 40 mg tablet 40 mg PO QHS cholesterol 08/03/25 furosemide 20 mg tablet 20 mg PO DAILY PRN swelling 08/03/25 hydrochlorothiazide 25 mg tablet 25 mg PO DAILY blood pressure/water pill 08/03/25 insulin glargine 100 unit/mL (3 mL) subcutaneous pen (Lantus Solostar U-100 Insulin) 30 unit subcut QHS diabetes 08/03/25 potassium chloride 20 mEq tablet,extended release(part/cryst) 20 meq PO DAILY supplement 08/03/25 spironolactone 25 mg tablet 25 mg PO DAILY water pill 08/03/25 acetaminophen 325 mg tablet 650 mg PO Q6H inflammation/pain 08/31/25 glipizide 10 mg tablet, extended release 24 hr 20 mg PO DAILY diabetes 08/31/25 levofloxacin 750 mg tablet 750 mg PO DAILY infection 08/31/25 ondansetron 4 mg disintegrating tablet 4 mg PO Q8H PRN nausea and vomiting 08/31/25 oxycodone 5 mg tablet 5 mg PO Q4H PRN severe pain (scale score 7-10) 08/31/25 octreotide acetate 100 mcg/mL injection solution (Sandostatin) 100 mcg subcut Q8H Ask your primary Doctor 09/09/25 polyethylene glycol 3350 17 gram/dose oral powder 17 g PO DAILY Constipation 09/09/25 sennosides 8.6 mg-docusate sodium 50 mg capsule (Senna Plus) 1 tab-cap PO QHS Constipation 09/09/25 Hospital Course Operations None Procedures None Summary of Care Provided Minutes Spent on Discharge: 35 Hospital Course: 60 year old female with below past medical history hospitalized for intra- abdominal fluid collections high in amylase, lipase, triglycerides, pancreatic fistula ruled out by mrcp, treated with low fat diet, complicated by right hydronephrosis, admitted to TCU with debility, here for rehabilitation, strengthening, prior to discharge home with . 09/29/2025 Dr. Cooper: (1) Bowel perforation: PLAN: CT 09/28/25 showed continued RP abscesses, new gas/fluid collection adjacent to proximal jejunum. New feculent drainage from drain tubes. Drain cx 09/28 with possible pseudomonas. Drain site 09/25 with C albicans, VRE, CoNS, Yeast non-albicans Ucx 09/25 yeast, VRE Drain cx 09/02 PsA, VRE, yeast (albicans and non-albicans) Currently on amoxicillin and fluconazole. Currently clinically stable, but recommend urgent transfer. Will change abx to dapto, meropenem, and micafungin. Discharge to [facility] 09/29/2025 ED for admission, and treatment. Physical Exam Const alert General Appearance: cooperative HEENT normocephalic Eyes PERRL and EOMs intact bilaterally Neck supple, no JVD and no carotid bruits Resp normal respiratory effort, normal air movement and clear to auscultation bilaterally Cardio regular rate and regular rhythm GI normal to inspection, nondistended, normoactive bowel sounds, non-tender and non-distended GI Narrative: Midline incision healed, 2 ARNOL drains left abdomen, draining watery norman liquid. Extremity normal capillary refill General Extremity: Negative for edema Skin no rashes or lesions noted General Skin Exam: no breakdown Psych affect normal Appearance: appropriate Weight / BMI Weight Weight: 75.841 kg Body Mass Index (BMI) 30.7 ABG / Lab / Microbiology Data 09/29/25 05:11 09/29/25 05:11 Laboratory: Laboratory Results - last 24 hr 09/26/25 16:23: POC Glucose 321 H 09/26/25 16:25: POC Glucose 336 H 09/29/25 11:28: POC Glucose 134 H 09/29/25 16:39: POC Glucose 261 H Microbiology: Microbiology 09/28/25 16:00 Drainage Tube Gram Stain - Final 09/28/25 16:00 Drainage Tube Wound Culture - Preliminary Pseudomonas aeruginosa Presumptive C albicans 09/29/25 13:40 Stool Stool Occult Blood (KRISS) - Final Occult Blood Positive 09/25/25 14:15 Discharge - Incision site Gram Stain - Final 09/25/25 14:15 Discharge - Incision site Wound Culture - Final Presumptive C albicans Vancomycin Resist. E. faecium Coag Negative Staph Yeast, not Melina albicans 09/25/25 14:15 Urine Catheter - Catheter Urine Culture - Final Yeast, not Melina albicans Vancomycin Resist. E. faecium 09/25/25 14:15 Stool Clostridioides difficile (PCR) - Final 09/25/25 14:15 Stool Enteric Bacteriology - Final 09/19/25 16:40 Urine, Catheterized Urine Culture - Final Staphylococcus epidermidis Vancomycin Resist. E. faecium Lactobacillus plantarum 09/18/25 20:04 Wound - Abdominal Gram Stain - Final 09/18/25 20:04 Wound - Abdominal Wound Culture - Final Lactobacillus plantarum Lactobacillus fermentum Yeast, not Melina albicans Coag Negative Staph D/C Instructions Weight Bearing Status: Weight bearing as tolerated Call your doctor if you observe: Fever of 101 or Higher, Inability to urinate, Inability to have a bowel movement, Shortness of breath, Dizziness, Fainting spells, Swelling in the ankles, Chest pain and Uncontrolled pain DC O2, CPAP, BIPAP Needs Home O2 Discharge instructions: No Additional Instructions: Discharge to [facility] 09/29/2025 ED for admission, and treatment. Please Follow Up With: Referral to Urology Meaningful Use Info Meaningful Use Meaningful Use Diagnoses (Choose all that apply): None applicable Discharge Plan Admission Admit Date/Time: 09/09/25 17:58 Primary Reason for Your Visit: Debility. Attending Provider: Ben Eller Chi Primary Care Provider: Danay Fontenot Consulting Providers: Otilia Amado; Liam Montes De Oca; Harman Cooper Instructions Additional Instructions / Restrictions: Discharge to [facility] 09/29/2025 ED for admission, and treatment. Discharge Orders/Prescriptions Prescriptions: No Action lisinopril 40 mg tablet 40 mg PO DAILY Patient Comments: TAKE ONE TABLET BY MOUTH DAILY amlodipine 10 MG tablet 10 mg PO DAILY atorvastatin 40 mg tablet 40 mg PO QHS hydrochlorothiazide 25 mg tablet 25 mg PO DAILY furosemide 20 mg tablet 20 mg PO DAILY PRN (Reason: swelling) insulin glargine [Lantus Solostar U-100 Insulin] 100 unit/mL (3 mL) insulin pen 30 unit subcut QHS spironolactone 25 mg tablet 25 mg PO DAILY potassium chloride 20 mEq tablet,ER particles/crystals 20 meq PO DAILY aspirin [Adult Aspirin Regimen] 81 mg tablet,delayed release (DR/EC) 81 mg PO DAILY Senna Plus 8.6-50 mg capsule 1 tab-cap PO QHS polyethylene glycol 3350 17 gram/dose powder 17 g PO DAILY octreotide acetate [Sandostatin] 100 mcg/mL solution 100 mcg subcut Q8H glipizide 10 mg tablet extended release 24hr 20 mg PO DAILY levofloxacin 750 mg tablet 750 mg PO DAILY Patient Comments: x17 days ondansetron 4 mg tablet,disintegrating 4 mg PO Q8H PRN (Reason: nausea and vomiting) oxycodone 5 mg tablet 5 mg PO Q4H PRN (Reason: severe pain (scale score 7-10)) acetaminophen 325 mg tablet 650 mg PO Q6H Referrals / Follow Up: Danay Fontenot MD [Primary Care Provider, Family Practice] Disposition Disposition (needs filled in before D/C Order can be placed): [facility]
== END 2025-09-29 18:15 | disposition short-term general hospital (02) | DRG 371 ==
PROVIDERS: Obstetrics & Gynecology; Admitting Provider Family Medicine Geriatric Medicine; PCP Student in an Organized Health Care Education/Training Program; Referring Provider Family Medicine Geriatric Medicine; Visit Provider Family Medicine Geriatric Medicine
DX: K68.19 Other retroperitoneal abscess (principal); K63.1 Perforation of intestine (nontraumatic); B37.89 Other sites of candidiasis; I69.354 Hemiplegia and hemiparesis following cerebral infarction affecting left non-dominant side; I50.32 Chronic diastolic (congestive) heart failure; N13.30 Unspecified hydronephrosis; Z16.21 Resistance to vancomycin; B96.5 Pseudomonas (aeruginosa) (mallei) (pseudomallei) as the cause of diseases classified elsewhere; B95.2 Enterococcus as the cause of diseases classified elsewhere; E11.65 Type 2 diabetes mellitus with hyperglycemia; I11.0 Hypertensive heart disease with heart failure; K25.9 Gastric ulcer, unspecified as acute or chronic, without hemorrhage or perforation; E11.40 Type 2 diabetes mellitus with diabetic neuropathy, unspecified; E78.5 Hyperlipidemia, unspecified; Z79.4 Long term (current) use of insulin; E87.6 Hypokalemia; M79.604 Pain in right leg; M79.605 Pain in left leg; B96.89 Other specified bacterial agents as the cause of diseases classified elsewhere; Z79.899 Other long term (current) drug therapy; Z79.84 Long term (current) use of oral hypoglycemic drugs; Z79.82 Long term (current) use of aspirin; N95.0 Postmenopausal bleeding; K68.9 Other disorders of retroperitoneum
CPT/HCPCS: 36415; 74018; 76770; 76830; 76856; 80048; 80053; 81001; 82274; 82962; 83735; 85014; 85018; 85025; 87040; 87070; 87077; 87086; 87088; 87184; 87186; 87205; 87493; 87506; 88175; 88305; 92507; 92523; 92610; 97110; 97162; 97166; 97530; 97535; 97802; J0878; J2185; A4216; G0145; J2354

== ENCOUNTER → 2025-09-19 | Outpatient (CLI) | payer SELFPAY, OTHER ==
--- NOTE | 2025-09-19 13:05 | CT_ITS ---
PROCEDURE: ABDOMEN/PELVIS WITH CONTRAST 09/19/2025 REASON FOR EXAM: PAIN TECHNIQUE: Procedure Code: CTABDPELW Modality: CT Procedure: ABDOMEN/PELVIS WITH CONTRAST Coronal and Sagittal reconstruction series were provided. CONTRAST: Isovue 370 VOLUME: 96 mL One or more dose reduction techniques were used (e.g., Automated exposure control, adjustment of the mA and/or kV according to patient size, use of iterative reconstruction technique. RADIATION DOSE SUMMARY: CTDlvol: 22.63 mGy DLP: 1167.32 mGycm COMPARISON: CT abdomen and pelvis 08/31/2025. FINDINGS: Lung bases: Moderate left pleural effusion with atelectasis. Moderate cardiomegaly. Atherosclerotic calcifications of the coronary arteries. Liver: Unremarkable. Gallbladder: Unremarkable. No biliary dilation. Spleen: A 1.3 cm simple cysts at the periphery of the left spleen. Otherwise, unremarkable. Pancreas: Unremarkable. Adrenals: Unremarkable. Kidneys: A 7 mm stone at the midpole of the left kidney. A 3 mm dependent stone in the right renal pelvis. A 3.5 cm simple cyst at the midpole of the right kidney. Perinephric fat stranding. Bladder: Unremarkable. Reproductive Organs: Unremarkable. Bowel: No bowel wall obstruction. No bowel wall thickening. Appendix: Unremarkable. Lymph nodes: No lymphadenopathy. Vasculature: No aneurysm. Atherosclerotic calcifications. Peritoneum / Retroperitoneum: A 7 x 11.1 cm retroperitoneal peripherally enhancing collection with a surgical drainage catheter of left abdominal approach is stable in size. Increase in size and left perirenal abscess with pigtail catheter coiled within the collection measures today 2.6 x 13 cm, measured 11.1 x [address] scan 08/31/2025. No new collections. No free air. Bones: No acute bony abnormalities. Laminectomies. Status post posterior fusion with metallic hardware. CT/Abdomen/Pelvis WITH Contrast IMPRESSION: A 7 x 11.1 x 6 cm retroperitoneal peripherally enhancing collection with a surg ical drainage catheter of left abdominal approach is stable in size. Significant increase in size and left perirenal abscess with pigtail catheter l aterally coiled within the collection measures today 2.6 x 13 x 6.3 cm, measured 11.1 x 0.8 x [address] scan 08/31/2025. A 7 mm stone at the midpole of the left kidney. A 3 mm dependent stone in the right renal pelvis.Perinephric fat stranding. Correlation with urinalysis is recommended. Reading Location: [id number]
== END | disposition home or self-care (01) ==
PROVIDERS: PCP Student in an Organized Health Care Education/Training Program; Visit Provider Family Medicine Geriatric Medicine
DX: N20.0 Calculus of kidney (principal)
CPT/HCPCS: 74177; Q9967

== ENCOUNTER → 2025-09-23 | Outpatient (CLI) | payer SELFPAY, OTHER ==
--- NOTE | 2025-09-23 10:03 | CT_ITS ---
PROCEDURE: ABDOMEN/PELVIS WITH CONTRAST 09/23/2025 REASON FOR EXAM: RETROPERITONEAL ABSCESS/ABD FLUID COLLECTION TECHNIQUE: Procedure Code: CTABDPELW Modality: CT Procedure: ABDOMEN/PELVIS WITH CONTRAST Coronal and Sagittal reconstruction series were provided. CONTRAST: Isovue-300 VOLUME: 100 mL One or more dose reduction techniques were used (e.g., Automated exposure control, adjustment of the mA and/or kV according to patient size, use of iterative reconstruction technique. RADIATION DOSE SUMMARY: CTDlvol: 17.8 mGy DLP: 1097.38 mGycm COMPARISON: September 19, 2025. FINDINGS: Lung bases: Stable small left pleural effusion with left basilar atelectasis. Stable 7.8 mm nodule in the peripheral aspect of the right lower lobe. Coronary artery calcification. Calcification of the mitral valve annulus. Liver: Diffuse fatty infiltration. Gallbladder: Small gallbladder polyps. Spleen: Normal size. Pancreas: Diffuse fatty atrophy. Adrenals: Hyperplasia of the left adrenal gland. Kidneys: 3.4 cm cyst in the posterior midportion of the right kidney. 6 mm non obstructive calculus in the midportion of the left kidney. Bladder: Unremarkable Reproductive Organs: Fibroid uterus. Bowel: Colonic diverticulosis without diverticulitis. Appendix: The appendix is not identified. There is no inflammatory process identified in the right lower quadrant to suggest appendicitis. Lymph nodes: Unremarkable. Vasculature: Mild diffuse atherosclerotic calcifications are noted. Peritoneum / Retroperitoneum: A left-sided percutaneous drainage catheter is seen within the fluid collection in the posterior left perirenal space. Small amount of fluid with air bubbles. The collection presently measures 7.3 cm x 3 cm. A percutaneous drainage catheter is also seen within the fluid collection in the right para- aortic space extending into the right hemipelvis. This fluid collection presently measures 6.8 cm by 3.6 cm. Interval decrease in size of the presacral soft tissue/fluid collection. Bones: Degenerative changes of the spine. Status post posterior fusion. CT/Abdomen/Pelvis WITH Contrast IMPRESSION: Interval improvement in the fluid collections in the left retroperitoneal and r ight para-aortic/retroperitoneal collections. Interval decrease in size of the presacral fluid collection. Reading Location: [place] [id number]
== END | disposition home or self-care (01) ==
PROVIDERS: PCP Student in an Organized Health Care Education/Training Program; Referring Provider Family Medicine Geriatric Medicine; Visit Provider Family Medicine Geriatric Medicine
DX: K68.19 Other retroperitoneal abscess (principal); R18.8 Other ascites
CPT/HCPCS: 74177; Q9967; A4216

== ENCOUNTER → 2025-09-25 | Outpatient (CLI) | payer OTHER, SELFPAY ==
--- NOTE | 2025-09-25 13:00 | ART_ITS ---
Reason For Study Reason For Study: PAIN/ULCERS Procedure A bilateral lower extremity continuous wave Doppler with analog waveform analysis and ankle brachial indexes. Left Segmental Pressures Left brachial= 143mmHg. Left posterior tibial artery = >255mmHg. Left dorsalis pedis artery = 145mmHg. Left digit = 54 mmHg. The left posterior tibial artery waveforms are triphasic. The left dorsalis pedis waveforms are triphasic. Right Segmental Pressures Right brachial= 143mmHg. Right posterior tibial artery = >255mmHg. Right dorsalis pedis artery = >255mmHg. Right digit = 0 mmHg. The right posterior tibial artery waveforms are triphasic. The right dorsalis pedis waveforms are triphasic. Indices The right resting ankle brachial index is unobtainable due to noncompressible INTELLIGENCE OPERATIONS SPECIALIST & DPA.. The right digital-brachial index is unobtainable.. The left resting ankle brachial index is 1.01. The left digital-brachial index is 0.38. VL/Ankle Brachial Index Interpretation Summary Triphasic Doppler waveforms are noted at ankle level bilaterally. Pulse-volume recordings appear diminished at ankle level on the right, and at digital levels bilaterally. The resting right ankle- brachial index could not be determined due to the non-compressibility of the vasculature at ankle level on the right. The resting left ankle-brachial index is normal. The right digital-brachial index was unobtainable. The left digital-bra chial index is moderately diminished. There is evidence of arterial calcification at ankle level on the right. The re sting right ankle-brachial index could not be determined due to the non-compressibility of the vasculature. The right digital-brachial index was unobtainable. Therefore, arterial flow in the right lower extremity was not fully quantified, though the right ankle Doppler waveform is triphasic, suggesting reasonably good flow. Arterial flow appears normal at ankle level on the left. There is evidence of [id number] arterial occlusive disease at digital level rafat rose. Ordering Physician: Ben Eller Chi Referring Physician: Danay Fontenot By: Janay Solomon RVT, RDCS
== END | disposition home or self-care (01) ==
LOC: CVS 13:00
PROVIDERS: PCP Student in an Organized Health Care Education/Training Program; Referring Provider Family Medicine Geriatric Medicine; Visit Provider Family Medicine Geriatric Medicine
DX: M79.606 Pain in leg, unspecified (principal); L97.909 Non-pressure chronic ulcer of unspecified part of unspecified lower leg with unspecified severity
CPT/HCPCS: 93922

== ENCOUNTER → 2025-09-28 | Outpatient (CLI) | payer SELFPAY, OTHER ==
--- NOTE | 2025-09-28 13:04 | CT_ITS ---
PROCEDURE: CT ABDOMEN/PELVIS WITH CONTRAST 09/28/2025 REASON FOR EXAM: RETROPERITONEAL ABSCESS TECHNIQUE: Procedure Code: CTABDPELW Modality: CT Procedure: ABDOMEN/PELVIS WITH CONTRAST Coronal and Sagittal reconstruction series were provided. CONTRAST: Isovue-300 VOLUME: 97 mL One or more dose reduction techniques were used (e.g., Automated exposure control, adjustment of the mA and/or kV according to patient size, use of iterative reconstruction technique. RADIATION DOSE SUMMARY: DLP: 1158.89 mGycm COMPARISON: 09/23/2025 FINDINGS: Small left and trace right basilar pleural effusions with adjacent atelectasis, no significant change. Unchanged 9 mm nodule in the posterior right lower lobe. Redemonstrated multiloculated abscess collections with internal foci of gas along the left and midline retroperitoneal space tracking down into the presacral region, with surgical drains in place within the dominant midline and left retroperitoneal collections. Fat stranding/edema throughout the mesenteric fat, and nonspecific small-moderate scattered pneumoperitoneum. An additional fluid and gas collection tracking adjacent to a proximal jejunal small bowel segment in the upper midabdomen appears new, and measures 3.7 cm diameter. Otherwise the abscess collection are not significantly changed. No evidence of bowel obstruction. Enteric contrast propagates to the rectum. Normal appendix. Unremarkable liver, spleen, pancreas, and gallbladder. No biliary ductal dilatation. Subcentimeter nonobstructive bilateral renal stones. No hydronephrosis on either side. Few bilateral small simple appearing renal cysts. Unremarkable urinary bladder, uterus and adnexae. Normal caliber abdominal aorta. Moderate atherosclerotic disease. Nonspecific generalized subcutaneous edema. Postoperative scarring along the anterior abdominal wall. No acute or aggressive osseous abnormality. Multilevel degenerative changes of the spine, with chronic compression fracture deformities at T11 and L2, with moderate retropulsion at the L2 level. Postoperative changes of multisegment dorsal decompression and instrumented fusion from T11-L5. CT/Abdomen/Pelvis WITH Contrast IMPRESSION: Multiloculated retroperitoneal abscess collections, overall no significant lane ge from 09/23/2025. Small 3.7 cm fluid and gas collection adjacent to the proximal jejunum appears new. Small-moderate pneumoperitoneum, probably related to the surgical drainage cath eters. Reading Location: [id number]
== END | disposition home or self-care (01) ==
PROVIDERS: PCP Student in an Organized Health Care Education/Training Program; Referring Provider Family Medicine Geriatric Medicine; Visit Provider Family Medicine Geriatric Medicine
DX: K68.19 Other retroperitoneal abscess (principal); R18.8 Other ascites
CPT/HCPCS: 74177; Q9967